=== PATIENT | male | born 1985 | race Caucasian/White ===

== ENCOUNTER 2020-07-02 17:23 | Emergency (ER) | payer OTHER, SELFPAY ==
[2020-07-02 17:33] VITALS: BP 129/86; PULSE 95; RESP 15; TEMP 37.1; O2SAT 98; BMI 31.5
[2020-07-02 17:41] VITALS: BP 129/86; PULSE 100; RESP 16; TEMP 35.6; O2SAT 100
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
--- NOTE | 2020-07-02 19:57 | PC.NURSE ---
patient moved to [facility] and this nurse took over patient care, provider inserted peggy.
--- NOTE | 2020-07-02 20:06 | PC.NURSE ---
patient medicated per order
[2020-07-02 21:18] VITALS: BP 126/84; PULSE 71; RESP 16; TEMP 36.2; O2SAT 97
== END 2020-07-02 21:56 | disposition home or self-care (01) ==
PROVIDERS: Emergency Provider Internal Medicine; PCP Physician Assistant
DX: S01.01XA Laceration without foreign body of scalp, initial encounter (principal); S06.0X0A Concussion without loss of consciousness, initial encounter; S00.81XA Abrasion of other part of head, initial encounter; Y04.2XXA Assault by strike against or bumped into by another person, initial encounter; G89.11 Acute pain due to trauma; M79.642 Pain in left hand; M54.2 Cervicalgia; F17.200 Nicotine dependence, unspecified, uncomplicated; Y93.9 Activity, unspecified; Y92.9 Unspecified place or not applicable; Y99.9 Unspecified external cause status
CPT/HCPCS: 12002; 70450; 71046; 72125; 73130; 90471; 90715; 99284

== ENCOUNTER 2022-11-28 13:38 | Inpatient (IN) | payer OTHER, SELFPAY ==
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
--- OUTSIDE RECORDS SUMMARY | 2022-11-28 13:48 | XMS_ITS | Continuity of Care Document ---
Author Name Unknown Organization [facility] ter Address [address] [place] [id number]- Care Team Providers Care Field Cane Scale Clerk Name Role Phone Lottie Hernandez Primary Care Physician [facility] [facility] [place]s): 06/22/19 - 06/22/[address] [address]- [facility] Encounter Diagnosis Epigastric pain(Final) - 06/22/19 Discharge Disposition: A-D/C Home Attending Physician: Manpreet Woods MD Admitting Physician: Manpreet Woods MD Referring Physician: Not on Staff, Referring MD Allergies, Adverse Reactions, Alerts Substance Reaction Severity Status NKA Active Medications famotidine 20 mg oral tablet 20 mg, 1, tablet, By Mouth, Daily at bedtime, # 30 tablet, Refills 0, Tot. Refills 0, Maintenance, 06/22/19 5:00:00 EST, Route to Pharmacy Electronically, [id number] Start Date: 06/22/19 Status: Ordered Results Radiology Reports * Exam Date Time Procedure Performing Provider Status 06/22/19 4:24 AM Chest 2 Views Frontal and Lat Gris Arreola; Yves (Verified) Notes: (Chest 2 Views Frontal and Lat) Reason For Exam: Shortness of Breath RESULT: Chest 2 Views Frontal and Lat Chest 2 Views Frontal and Lat Refer to EMR; Reason: Shortness of Breath; Clinical Question(s): CHF; Hx of Present Illness: Complains of substernal chest pain radiating down left arm x3 hours. COMPARISON: 11/09/2017. FINDINGS: LINES AND TUBES: None. LUNGS AND PLEURA: Clear lungs. Normal pulmonary vascularity. Mild hypoinflation. No evidence of pleural effusion, but the right posterior costophrenic angle is incompletely imaged on the lateral view. No pneumothorax. HEART, MEDIASTINUM AND HENOK: Heart is normal in size. Normal mediastinal and hilar contour. BONES AND SOFT TISSUES: No acute abnormality. IMPRESSION: Negative. Mild right posterior costophrenic angle limitation. WSN: [id number] Dictated By: Michael Sterling MD Dictated Date/Time: 06/22/19 9:45 am Reviewed By: Michael Sterling MD Signed By: Michael Sterling MD Signed Date/Time: 06/22/19 9:45 am Transcribed By: SAMIR Transcribed Date/Time: 06/22/19 9:43 am Vital Signs Most recent to oldest [Reference Range]: 1 2 3 Oxygen Saturation [94-100 %] 100 % (06/22/19 5:11 AM) 96 % (06/22/19 4:39 AM) 97 % (06/22/19 3:36 AM) Pulse Rate [55-90 bpm] 81 bpm (06/22/19 5:11 AM) 101 bpm *H* (06/22/19 4:39 AM) 99 bpm *H* (06/22/19 3:36 AM) Blood Pressure [90-138/55-84 mm Hg] 121/83mm Hg (06/22/19 5:11 AM) 125/69mm Hg (06/22/19 4:39 AM) 117/75mm Hg (06/22/19 3:36 AM) Respiratory Rate [16-30 br/min] 16 br/min (06/22/19 5:11 AM) 16 br/min (06/22/19 5:10 AM) 16 br/min (06/22/19 4:39 AM) Temperature [96.8-100.4 DegF] 98.5 DegF (06/22/19 4:39 AM) 98.2 DegF (06/22/19 3:36 AM) Mode of Delivery (Oxygen) Room air (06/22/19 5:11 AM) Room air (06/22/19 4:39 AM) Room air (06/22/19 3:36 AM) Blood pressure sites Arm, right (06/22/19 4:39 AM) Temperature Route Oral (06/22/19 4:39 AM) Oral (06/22/19 3:36 AM)
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
[2022-11-28] MEDS: Nicotine Polacrilex 2 MG GUM 4 MG BUCCAL ×2 (14:47→20:33)
[2022-11-28] MEDS: Nicotine 21 MG PATCH.TD24 TRANSDERMA (14:47)
--- NOTE | 2022-11-28 15:33 | PC.ADMIT ---
Pt signed a CV. Pt was agreeable and cooperative during admission. Pt was labile and preoccupied with current living situation stating I am currently living in a tent in [facility], all of my stuff is dirty and I have only had to survive. He signed all legals and was pleasant. He reported passive SI, stating I just don't want to live anymore, but was verbalized being able to come to staff. He denied current HI/AVH.
[2022-11-28 16:38] VITALS: BMI 26.2
--- NOTE | 2022-11-28 17:15 | PC.ADMIT ---
Patient signed 3 day notice 11/28/22Sat. up Saturday, December 03, 2022. Carli Marcelino notified.
[2022-11-28] MEDS: hydrOXYzine HCL 25 MG TABLET PO (17:28)
[2022-11-28 20:25] VITALS: BP 129/72; PULSE 95; TEMP 36.6; O2SAT 97
[2022-11-28] MEDS: traZODone HCL 50 MG TABLET PO (20:33)
[2022-11-29 07:00] VITALS: BMI 26.4
[2022-11-29 08:00] VITALS: BP 125/75; PULSE 81; RESP 16; TEMP 36.3; O2SAT 100
[2022-11-29] MEDS: Nicotine 21 MG PATCH.TD24 TRANSDERMA (08:56)
[2022-11-29] MEDS: hydrOXYzine HCL 25 MG TABLET PO ×2 (08:57→16:23)
[2022-11-29] MEDS: Acetaminophen 325 MG TABLET 650 MG PO (08:57)
[2022-11-29] MEDS: Nicotine Polacrilex 2 MG GUM 4 MG BUCCAL ×2 (09:00→17:05)
[2022-11-29 09:36] LABS: Estimated Average Glucose 103 mg/dL; Hemoglobin A1c % 5.2 %
[2022-11-29 09:41] LABS: Cholesterol 216 mg/dL; HDL Cholesterol 40 mg/dL; LDL Cholesterol Calculated 160 mg/dl; Triglycerides 80 mg/dL
[2022-11-29 09:56] LABS: Free T4 (Free Thyroxine) 1.03 ng/dL (0.71-1.85); Thyroid Stimulating Hormone 2.03 uIU/mL (0.32-4.0)
[2022-11-29 10:09] LABS: Vitamin B12 467 pg/mL (200-900)
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
[2022-11-29] MEDS: cloNIDine HCL 0.1 MG TABLET PO ×3 (12:06→19:12)
[2022-11-29 12:11] VITALS: BP 132/80
[2022-11-29] MEDS: Venlafaxine HCl ER 75 MG CAP.ER.24H PO (13:00)
[2022-11-29] MEDS: OLANZapine 2.5 MG TABLET PO ×2 (13:03→19:11)
[2022-11-29 16:31] VITALS: BP 120/67; PULSE 87; RESP 18; TEMP 36.5; O2SAT 99
[2022-11-29 19:10] VITALS: BP 112/71; PULSE 99; TEMP 35.6
[2022-11-29] MEDS: traZODone HCL 50 MG TABLET PO (19:12)
[2022-11-30 08:00] VITALS: BP 118/78; PULSE 81; RESP 18; TEMP 36.5; O2SAT 98
[2022-11-30] MEDS: OLANZapine 2.5 MG TABLET PO (08:24)
[2022-11-30] MEDS: Nicotine 21 MG PATCH.TD24 TRANSDERMA (08:24)
[2022-11-30] MEDS: cloNIDine HCL 0.1 MG TABLET PO ×3 (08:25→20:04)
[2022-11-30] MEDS: Venlafaxine HCl ER 75 MG CAP.ER.24H PO (08:25)
[2022-11-30] MEDS: Nicotine Polacrilex 2 MG GUM 4 MG BUCCAL ×3 (08:51→20:56)
[2022-11-30] MEDS: hydrOXYzine HCL 25 MG TABLET PO ×2 (08:51→20:05)
--- NOTE | 2022-11-30 10:17 | HO.PSYCHPN ---
Subjective Subjective Date of Service: 11/30/22 Reason For Visit: Post Traumatic Stress Disorder Interim History: Met with patient; discussed with team Patient remains extremely anxious; agrees titrate Effexor; also agreed to start Trileptal which can be titrated. Asks if clonidine which he found helpful can be increased to 0.2 mg; reviewed risks and blood pressure which looked to be able to tolerate increased dose. Did not like Zyprexa and felt it made him sleepy and then more agitated. Mental Status Exam Mental Status Exam Narrative: Pt is alert and oriented; behavior is cooperative, anxious; dressed in hospital attire with, scruffy facial hair, marginal hygiene; mood is described as anxious and affect congruent, fearful; eye contact appropriate; Speech is normal rate, volume and prosody and not pressured; some psychomotor retardation present; thought process is goal directed; Thought content is on preoccupied with talking about anxiety symptoms; otherwise pertinent to relevant topics and without any delusional content, paranoid ideations or grandiosity; intermittent passive wish; no HI. There is no evidence of perceptual disturbance. Patients insight and judgment impaired Diagnostics Vital Signs (24Hr): Vital Signs - 24 hr 11/29/22 12:11 11/29/22 16:31 11/29/22 19:10 Temperature 97.7 F 96.1 F L Pulse Rate 87 99 Respiratory Rate 18 Blood Pressure 132/80 120/67 112/71 Pulse Oximetry 99 Oxygen Delivery Method Room Air 11/30/22 08:00 Temperature 97.7 F Pulse Rate 81 Respiratory Rate 18 Blood Pressure 118/78 Pulse Oximetry 98 Oxygen Delivery Method Room Air BMI result Body Mass Index 26.4 Labs Labs: Laboratory Results - last 48 hr 11/29/22 11/29/22 11/29/22 08:54 08:54 08:54 Estimat Average Glucose 103 Hemoglobin A1c % 5.2 Magnesium 2.0 Triglycerides 80 Cholesterol 216 LDL Cholesterol, Calc 160 HDL Cholesterol 40 Vitamin B12 467 Folate 10.0 TSH 2.03 Free T4 1.03 Medications Medications Current Medications Acetaminophen (Acetaminophen 325 Mg Tablet) 650 mg PO Q6H PRN PRN Reason: Headache/Pain Mild Scale (1-3) Last Admin: 11/29/22 08:57 Dose: 650 mg Al Hydroxide/Mg Hydroxide (Magnesium Hydrox/Alum Hydrox 30 Ml Oral.Susp) 30 ml PO Q6H PRN PRN Reason: Heartburn/Nausea Clonidine HCl (Clonidine Hcl 0.1 Mg Tablet) 0.1 mg PO BEDTIME JAE; Protocol Last Admin: 11/29/22 19:12 Dose: 0.1 mg Clonidine HCl (Clonidine Hcl 0.1 Mg Tablet) 0.1 mg PO Q4H PRN; Protocol PRN Reason: anxiety Last Admin: 11/30/22 08:25 Dose: 0.1 mg Hydroxyzine HCl (Hydroxyzine Hcl 25 Mg Tablet) 25 mg PO Q6H PRN PRN Reason: Anxiety Last Admin: 11/30/22 08:51 Dose: 25 mg Magnesium Hydroxide (Milk Of Magnesia 30 Ml Oral.Susp) 30 ml PO DAILY PRN PRN Reason: Constipation Nicotine (Nicotine 21 Mg Patch.Td24) 21 mg TRANSDERMA DAILY PRN PRN Reason: smoking cessation Last Admin: 11/30/22 08:24 Dose: 21 mg Nicotine Polacrilex (Nicotine Polacrilex 2 Mg Gum) 4 mg BUCCAL Q2H PRN PRN Reason: nicotine cravings Last Admin: 11/30/22 08:51 Dose: 4 mg Olanzapine (Olanzapine 2.5 Mg Tablet) 2.5 mg PO Q6H PRN PRN Reason: anxiety/agitation Last Admin: 11/30/22 08:24 Dose: 2.5 mg Trazodone HCl (Trazodone Hcl 50 Mg Tablet) 50 mg PO BEDTIME MRX1 PRN PRN Reason: Insomnia Last Admin: 11/29/22 19:12 Dose: 50 mg Venlafaxine HCl (Venlafaxine Hcl Er 75 Mg Cap.Er.24h) 75 mg PO DAILY JAE Last Admin: 11/30/22 08:25 Dose: 75 mg Allergies Allergies Allergy/AdvReac Type Severity Reaction Status Date / Time amoxicillin Allergy Severe Rash Verified 11/28/22 13:16 cephalexin [From Keflex] Allergy Severe Rash Verified 11/28/22 13:16 Assessment & Plan Assessment & Plan (1) SAWYER (generalized anxiety disorder): Status: Acute Code(s): F41.1 - Generalized anxiety disorder (2) OCD (obsessive compulsive disorder): Status: Suspected Code(s): F42.9 - Obsessive-compulsive disorder, unspecified (3) PTSD (post-traumatic stress disorder): Status: Acute Code(s): F43.10 - Post-traumatic stress disorder, unspecified (4) MDD (major depressive disorder), recurrent severe, without psychosis: Status: Acute Code(s): F33.2 - Major depressive disorder, recurrent severe without psychotic features Plan Patient is a 37-year-old male with history of MDD, PTSD and severe anxiety who presents for worsening anxiety. Patient lives [place] [facility] and has for 3 years. He reports that his anxiety has been worsening over the past few months but especially so the past few weeks. He is not sure why but says that he feels terrified of many different things, a small sound will send him into a panic where he gets sweaty, starts to hyperventilate, the muscles tense, and he starts to feel confused. Patient reports other associated neurological complaints such as being dizzy or having trouble walking but all in the context of panic/anxiety. Patient is clearly very anxious during interview and [place] about very little else. Patient says his anxiety is all the time and that recently he does lied in his tent for 3 days in a row hardly moving, just looking at the ceiling. Patient denies any history of manic episodes; denies AVH; denies alcohol or drug use; patient has passive SI, wishing he were but no intent or plans and no history of attempts. Patient recently at [facility] respite and was started on venlafaxine which he has taken daily and agrees to increase now. Impression: Patient has severe anxiety; will need to explore further and determine if patient has OCD. History of trauma and PTSD symptoms contributory. No obvious psychotic symptoms Plan: CV Q 15 minute checks Increased venlafaxine ER to 75 mg; will likely continue titrating if tolerated INCREASE so clonidine 0.2 mg q.4h p.r.n. for anxiety (bp stable) and 0.1 mg scheduled q.h.s. for trouble sleeping Start and titrate Trileptal for anxiety 300mgBID DC Zyprexa patient feels combination of sedating into agitating Patient educated on: diagnosis and medication risk/benefits Informed Consent: understands Reason for continued inpatient stay Substantial Risk for: inability to function and rapid decompensation Time Spent With Patient Time: Total time managing care of this patient today ____ minutes.
[2022-11-30] MEDS: OXcarbazepine 150 MG TABLET PO (13:46)
[2022-11-30] MEDS: cloNIDine HCL 0.2 MG TABLET PO (17:01)
[2022-11-30 17:05] VITALS: BP 112/70; PULSE 98; RESP 18; TEMP 36.2; O2SAT 98
[2022-11-30] MEDS: Acetaminophen 325 MG TABLET 650 MG PO (20:01)
[2022-11-30] MEDS: traZODone HCL 50 MG TABLET PO (20:05)
[2022-11-30] MEDS: OXcarbazepine 300 MG TABLET PO (20:06)
[2022-12-01 08:40] VITALS: BP 137/81; PULSE 73; RESP 16; TEMP 36.4; O2SAT 99
[2022-12-01] MEDS: OXcarbazepine 300 MG TABLET PO ×2 (08:41→20:38)
[2022-12-01] MEDS: Nicotine 21 MG PATCH.TD24 TRANSDERMA (08:41)
[2022-12-01] MEDS: cloNIDine HCL 0.2 MG TABLET PO ×3 (08:41→17:18)
[2022-12-01] MEDS: Venlafaxine HCl ER 75 MG CAP.ER.24H PO (08:41)
[2022-12-01] MEDS: hydrOXYzine HCL 25 MG TABLET PO ×3 (08:41→20:38)
[2022-12-01] MEDS: Nicotine Polacrilex 2 MG GUM 4 MG BUCCAL ×5 (08:48→20:38)
[2022-12-01 12:39] VITALS: BP 119/56; PULSE 104
[2022-12-01] MEDS: Acetaminophen 325 MG TABLET 650 MG PO ×2 (13:49→20:38)
[2022-12-01 18:00] VITALS: BP 123/70; PULSE 84; RESP 20; TEMP 36.7; O2SAT 98
--- NOTE | 2022-12-01 18:27 | HO.PSYCHPN ---
Subjective Subjective Date of Service: 12/01/22 Reason For Visit: Post Traumatic Stress Disorder Interim History: Pt seen and discussed in team. Pt attending groups. States he attended medicine group and is ready to make changes. Will discuss with primary provider. Considering Cymbalta and Gabapentin. Discussed worry about his future. Team reports some somatic focus. Review of Systems Medical Review of Systems: unchanged Mental Status Exam Mental Status Exam Patient Appearance: Appropriate Patient Orientation: Person, Place, Time and Situation Level of Consciousness: Alert Patient Behavior: Appropriate and Talkative Mood Description: Anxious and Apprehensive Affect Description: Anxious and Apprehensive Patient Cognition Impaired: No Ability to Follow Directions: Good Speech Pattern: Spontaneous Speech Memory Description: Intact Delusions: Present (much worry) Thought Process: Rumination Thought Content: positive for Perseveration Depressive Symptoms: Increased Anxiety Judgement: Fair Diagnostics Vital Signs (24Hr): Vital Signs - 24 hr 12/01/22 08:40 12/01/22 12:39 Temperature 97.6 F Pulse Rate 73 104 H Respiratory Rate 16 Blood Pressure 137/81 119/56 L Pulse Oximetry 99 BMI result Body Mass Index 26.4 Medications Medications Current Medications Acetaminophen (Acetaminophen 325 Mg Tablet) 650 mg PO Q6H PRN PRN Reason: Headache/Pain Mild Scale (1-3) Last Admin: 12/01/22 13:49 Dose: 650 mg Al Hydroxide/Mg Hydroxide (Magnesium Hydrox/Alum Hydrox 30 Ml Oral.Susp) 30 ml PO Q6H PRN PRN Reason: Heartburn/Nausea Clonidine HCl (Clonidine Hcl 0.1 Mg Tablet) 0.1 mg PO BEDTIME JAE; Protocol Last Admin: 11/30/22 20:04 Dose: 0.1 mg Clonidine HCl (Clonidine Hcl 0.2 Mg Tablet) 0.2 mg PO Q4H PRN; Protocol PRN Reason: anxiety Last Admin: 12/01/22 17:18 Dose: 0.2 mg Hydroxyzine HCl (Hydroxyzine Hcl 25 Mg Tablet) 25 mg PO Q6H PRN PRN Reason: Anxiety Last Admin: 12/01/22 15:21 Dose: 25 mg Magnesium Hydroxide (Milk Of Magnesia 30 Ml Oral.Susp) 30 ml PO DAILY PRN PRN Reason: Constipation Nicotine (Nicotine 21 Mg Patch.Td24) 21 mg TRANSDERMA DAILY PRN PRN Reason: smoking cessation Last Admin: 07/01/23 08:41 Dose: 21 mg Nicotine Polacrilex (Nicotine Polacrilex 2 Mg Gum) 4 mg BUCCAL Q2H PRN PRN Reason: nicotine cravings Last Admin: 12/01/22 17:18 Dose: 4 mg Oxcarbazepine (Oxcarbazepine 300 Mg Tablet) 300 mg PO BID JAE Last Admin: 12/01/22 08:41 Dose: 300 mg Trazodone HCl (Trazodone Hcl 50 Mg Tablet) 50 mg PO BEDTIME MRX1 PRN PRN Reason: Insomnia Last Admin: 11/30/22 20:05 Dose: 50 mg Venlafaxine HCl (Venlafaxine Hcl Er 75 Mg Cap.Er.24h) 75 mg PO DAILY JAE Last Admin: 12/01/22 08:41 Dose: 75 mg Allergies Allergies Allergy/AdvReac Type Severity Reaction Status Date / Time amoxicillin Allergy Severe Rash Verified 11/28/22 13:16 cephalexin [From Keflex] Allergy Severe Rash Verified 11/28/22 13:16 Assessment & Plan Assessment & Plan (1) SAWYER (generalized anxiety disorder): Status: Acute Code(s): F41.1 - Generalized anxiety disorder (2) OCD (obsessive compulsive disorder): Status: Suspected Code(s): F42.9 - Obsessive-compulsive disorder, unspecified (3) PTSD (post-traumatic stress disorder): Status: Acute Code(s): F43.10 - Post-traumatic stress disorder, unspecified (4) MDD (major depressive disorder), recurrent severe, without psychosis: Status: Acute Code(s): F33.2 - Major depressive disorder, recurrent severe without psychotic features Plan Patient is a 37-year-old male with history of MDD, PTSD and severe anxiety who presents for worsening anxiety. Patient lives in a tent in the [facility] and has for 3 years. He reports that his anxiety has been worsening over the past few months but especially so the past few weeks. He is not sure why but says that he feels terrified of many different things, a small sound will send him into a panic where he gets sweaty, starts to hyperventilate, the muscles tense, and he starts to feel confused. Patient reports other associated neurological complaints such as being dizzy or having trouble walking but all in the context of panic/anxiety. Patient is clearly very anxious during interview and [place] about very little else. Patient says his anxiety is all the time and that recently he does lied in his tent for 3 days in a row hardly moving, just looking at the ceiling. Patient denies any history of manic episodes; denies AVH; denies alcohol or drug use; patient has passive SI, wishing he were but no intent or plans and no history of attempts. Patient recently at [facility] respite and was started on venlafaxine which he has taken daily and agrees to increase now. Impression: Patient has severe anxiety; will need to explore further and determine if patient has OCD. History of trauma and PTSD symptoms contributory. No obvious psychotic symptoms Plan: CV Q 15 minute checks Increase venlafaxine ER to 75 mg; will likely continue titrating if tolerated Started clonidine 0.1 mg q.4h p.r.n. for anxiety and 0.1 mg scheduled q.h.s. for trouble sleeping Added Zyprexa 2.5 mg as a p.r.n. as well HOSPITAL COURSE 12/01/22- Continue current regime and plan of care Informed Consent: understands Reason for continued inpatient stay Substantial Risk for: rapid decompensation Time Spent With Patient Time: Total time managing care of this patient today ____ minutes.
[2022-12-01] MEDS: cloNIDine HCL 0.1 MG TABLET PO (20:37)
[2022-12-01] MEDS: traZODone HCL 50 MG TABLET PO (20:37)
[2022-12-02] MEDS: OXcarbazepine 300 MG TABLET PO ×2 (08:59→20:25)
[2022-12-02] MEDS: Venlafaxine HCl ER 75 MG CAP.ER.24H PO (08:59)
--- NOTE | 2022-12-02 08:59 | HO.PSYCHPN ---
Subjective Subjective Date of Service: 12/02/22 Reason For Visit: Post Traumatic Stress Disorder Interim History: Pt seen and discussed with team. Continues with worry, anxiety. Encouraged to allow regime to take effect. Visable in milieu, appropriate behavior in the milieu. Medication Compliance: Yes Side effects from medications: No Attending Groups: Intermittent Review of Systems Acute medical concerns: No Medical Review of Systems: unchanged Mental Status Exam Mental Status Exam Patient Appearance: Appropriate Patient Orientation: Person, Place, Time and Situation Level of Consciousness: Alert Patient Behavior: Appropriate and Talkative Mood Description: Anxious and Apprehensive Affect Description: Anxious and Apprehensive Patient Cognition Impaired: No Ability to Follow Directions: Good Speech Pattern: Spontaneous Speech Memory Description: Intact Delusions: Present (much worry) Thought Process: Rumination Thought Content: positive for Perseveration Depressive Symptoms: Increased Anxiety Judgement: Fair Diagnostics Vital Signs (24Hr): Vital Signs - 24 hr 12/01/22 12:39 12/01/22 18:00 Temperature 98.1 F Pulse Rate 104 H 84 Respiratory Rate 20 Blood Pressure 119/56 L 123/70 Pulse Oximetry 98 Oxygen Delivery Method Room Air BMI result Body Mass Index 26.4 Medications Medications Current Medications Acetaminophen (Acetaminophen 325 Mg Tablet) 650 mg PO Q6H PRN PRN Reason: Headache/Pain Mild Scale (1-3) Last Admin: 12/01/22 20:38 Dose: 650 mg Al Hydroxide/Mg Hydroxide (Magnesium Hydrox/Alum Hydrox 30 Ml Oral.Susp) 30 ml PO Q6H PRN PRN Reason: Heartburn/Nausea Clonidine HCl (Clonidine Hcl 0.1 Mg Tablet) 0.1 mg PO BEDTIME JAE; Protocol Last Admin: 12/01/22 20:37 Dose: 0.1 mg Clonidine HCl (Clonidine Hcl 0.2 Mg Tablet) 0.2 mg PO Q4H PRN; Protocol PRN Reason: anxiety Last Admin: 12/01/22 17:18 Dose: 0.2 mg Hydroxyzine HCl (Hydroxyzine Hcl 25 Mg Tablet) 25 mg PO Q6H PRN PRN Reason: Anxiety Last Admin: 12/01/22 20:38 Dose: 25 mg Magnesium Hydroxide (Milk Of Magnesia 30 Ml Oral.Susp) 30 ml PO DAILY PRN PRN Reason: Constipation Nicotine (Nicotine 21 Mg Patch.Td24) 21 mg TRANSDERMA DAILY PRN PRN Reason: smoking cessation Last Admin: 12/01/22 08:41 Dose: 21 mg Nicotine Polacrilex (Nicotine Polacrilex 2 Mg Gum) 4 mg BUCCAL Q2H PRN PRN Reason: nicotine cravings Last Admin: 12/01/22 20:38 Dose: 4 mg Oxcarbazepine (Oxcarbazepine 300 Mg Tablet) 300 mg PO BID JAE Last Admin: 12/01/22 20:38 Dose: 300 mg Trazodone HCl (Trazodone Hcl 50 Mg Tablet) 50 mg PO BEDTIME MRX1 PRN PRN Reason: Insomnia Last Admin: 12/01/22 20:37 Dose: 50 mg Venlafaxine HCl (Venlafaxine Hcl Er 75 Mg Cap.Er.24h) 75 mg PO DAILY [facility] Last Admin: 12/01/22 08:41 Dose: 75 mg Allergies Allergies Allergy/AdvReac Type Severity Reaction Status Date / Time amoxicillin Allergy Severe Rash Verified 11/28/22 13:16 cephalexin [From Keflex] Allergy Severe Rash Verified 11/28/22 13:16 Assessment & Plan Assessment & Plan (1) SAWYER (generalized anxiety disorder): Status: Acute Code(s): F41.1 - Generalized anxiety disorder (2) OCD (obsessive compulsive disorder): Status: Suspected Code(s): F42.9 - Obsessive-compulsive disorder, unspecified (3) PTSD (post-traumatic stress disorder): Status: Acute Code(s): F43.10 - Post-traumatic stress disorder, unspecified (4) MDD (major depressive disorder), recurrent severe, without psychosis: Status: Acute Code(s): F33.2 - Major depressive disorder, recurrent severe without psychotic features Plan Patient is a 37-year-old male with history of MDD, PTSD and severe anxiety who presents for worsening anxiety. Patient lives in a tent in the [facility] and has for 3 years. He reports that his anxiety has been worsening over the past few months but especially so the past few weeks. He is not sure why but says that he feels terrified of many different things, a small sound will send him into a panic where he gets sweaty, starts to hyperventilate, the muscles tense, and he starts to feel confused. Patient reports other associated neurological complaints such as being dizzy or having trouble walking but all in the context of panic/anxiety. Patient is clearly very anxious during interview and [place] about very little else. Patient says his anxiety is all the time and that recently he does lied in his tent for 3 days in a row hardly moving, just looking at the ceiling. Patient denies any history of manic episodes; denies AVH; denies alcohol or drug use; patient has passive SI, wishing he were but no intent or plans and no history of attempts. Patient recently at [facility] respite and was started on venlafaxine which he has taken daily and agrees to increase now. Impression: Patient has severe anxiety; will need to explore further and determine if patient has OCD. History of trauma and PTSD symptoms contributory. No obvious psychotic symptoms Plan: CV Q 15 minute checks Increase venlafaxine ER to 75 mg; will likely continue titrating if tolerated Started clonidine 0.1 mg q.4h p.r.n. for anxiety and 0.1 mg scheduled q.h.s. for trouble sleeping Added Zyprexa 2.5 mg as a p.r.n. as well HOSPITAL COURSE 12/02/22 Continue current regime and plan of care Informed Consent: understands Reason for continued inpatient stay Substantial Risk for: rapid decompensation and med/psych decompensation Time Spent With Patient Time: Total time managing care of this patient today ____ minutes.
[2022-12-02 09:00] VITALS: BP 117/76; PULSE 80; RESP 16; TEMP 36.6; O2SAT 99
[2022-12-02] MEDS: Nicotine 21 MG PATCH.TD24 TRANSDERMA (09:02)
[2022-12-02] MEDS: cloNIDine HCL 0.2 MG TABLET PO ×3 (09:03→18:00)
[2022-12-02] MEDS: Acetaminophen 325 MG TABLET 650 MG PO ×2 (09:03→20:28)
[2022-12-02] MEDS: Nicotine Polacrilex 2 MG GUM 4 MG BUCCAL ×4 (09:03→20:28)
[2022-12-02] MEDS: hydrOXYzine HCL 25 MG TABLET PO ×3 (09:03→20:29)
[2022-12-02 18:00] VITALS: BP 97/54; PULSE 94; TEMP 36.6; O2SAT 97
[2022-12-02] MEDS: cloNIDine HCL 0.1 MG TABLET PO (20:25)
--- NOTE | 2022-12-03 09:14 | HO.PSYCHPN ---
Subjective Subjective Date of Service: 12/03/22 Reason For Visit: Post Traumatic Stress Disorder Interim History: Met with patient; discussed with team very anxious; somatically preoccupied Patient feels that there is the irritable, agitated edge to his anxiety. Ask her gabapentin p.r.n.; discussed Tegretol is that of Trileptal Headache is mostly all resolved Head CT unremarkable Mental Status Exam Mental Status Exam Narrative: Pt is alert and oriented; behavior is cooperative, anxious; dressed in hospital attire with, scruffy facial hair, marginal hygiene; mood is described as anxious and affect congruent, fearful; eye contact appropriate; Speech is normal rate, volume and prosody and not pressured; some psychomotor retardation present; thought process is goal directed; Thought content is on preoccupied with talking about anxiety symptoms; otherwise pertinent to relevant topics and without any delusional content, paranoid ideations or grandiosity; intermittent passive wish; no HI. There is no evidence of perceptual disturbance. Patients insight and judgment impaired Diagnostics Vital Signs (24Hr): Vital Signs - 24 hr 12/02/22 18:00 Temperature 97.8 F Pulse Rate 94 Blood Pressure 97/54 L Pulse Oximetry 97 Oxygen Delivery Method Room Air BMI result Body Mass Index 26.4 Medications Medications Current Medications Acetaminophen (Acetaminophen 325 Mg Tablet) 650 mg PO Q6H PRN PRN Reason: Headache/Pain Mild Scale (1-3) Last Admin: 12/02/22 20:28 Dose: 650 mg Al Hydroxide/Mg Hydroxide (Magnesium Hydrox/Alum Hydrox 30 Ml Oral.Susp) 30 ml PO Q6H PRN PRN Reason: Heartburn/Nausea Clonidine HCl (Clonidine Hcl 0.1 Mg Tablet) 0.1 mg PO BEDTIME JAE; Protocol Last Admin: 12/02/22 20:25 Dose: 0.1 mg Clonidine HCl (Clonidine Hcl 0.2 Mg Tablet) 0.2 mg PO Q4H PRN; Protocol PRN Reason: anxiety Last Admin: 12/02/22 18:00 Dose: 0.2 mg Hydroxyzine HCl (Hydroxyzine Hcl 25 Mg Tablet) 25 mg PO Q6H PRN PRN Reason: Anxiety Last Admin: 12/02/22 20:29 Dose: 25 mg Magnesium Hydroxide (Milk Of Magnesia 30 Ml Oral.Susp) 30 ml PO DAILY PRN PRN Reason: Constipation Nicotine (Nicotine 21 Mg Patch.Td24) 21 mg TRANSDERMA DAILY PRN PRN Reason: smoking cessation Last Admin: 12/02/22 09:02 Dose: 21 mg Nicotine Polacrilex (Nicotine Polacrilex 2 Mg Gum) 4 mg BUCCAL Q2H PRN PRN Reason: nicotine cravings Last Admin: 12/02/22 20:28 Dose: 4 mg Oxcarbazepine (Oxcarbazepine 300 Mg Tablet) 300 mg PO BID JAE Last Admin: 12/02/22 20:25 Dose: 300 mg Trazodone HCl (Trazodone Hcl 50 Mg Tablet) 50 mg PO BEDTIME MRX1 PRN PRN Reason: Insomnia Last Admin: 12/01/22 20:37 Dose: 50 mg Venlafaxine HCl (Venlafaxine Hcl Er 75 Mg Cap.Er.24h) 75 mg PO DAILY [facility] Last Admin: 12/02/22 08:59 Dose: 75 mg Allergies Allergies Allergy/AdvReac Type Severity Reaction Status Date / Time amoxicillin Allergy Severe Rash Verified 11/28/22 13:16 cephalexin [From Keflex] Allergy Severe Rash Verified 11/28/22 13:16 Assessment & Plan Assessment & Plan (1) SAWYER (generalized anxiety disorder): Status: Acute Code(s): F41.1 - Generalized anxiety disorder (2) OCD (obsessive compulsive disorder): Status: Suspected Code(s): F42.9 - Obsessive-compulsive disorder, unspecified (3) PTSD (post-traumatic stress disorder): Status: Acute Code(s): F43.10 - Post-traumatic stress disorder, unspecified (4) MDD (major depressive disorder), recurrent severe, without psychosis: Status: Acute Code(s): F33.2 - Major depressive disorder, recurrent severe without psychotic features Plan Patient is a 37-year-old male with history of MDD, PTSD and severe anxiety who presents for worsening anxiety. Patient lives in a tent in the [facility] and has for 3 years. He reports that his anxiety has been worsening over the past few months but especially so the past few weeks. He is not sure why but says that he feels terrified of many different things, a small sound will send him into a panic where he gets sweaty, starts to hyperventilate, the muscles tense, and he starts to feel confused. Patient reports other associated neurological complaints such as being dizzy or having trouble walking but all in the context of panic/anxiety. Patient is clearly very anxious during interview and [place] about very little else. Patient says his anxiety is all the time and that recently he does lied in his tent for 3 days in a row hardly moving, just looking at the ceiling. Patient denies any history of manic episodes; denies AVH; denies alcohol or drug use; patient has passive SI, wishing he were but no intent or plans and no history of attempts. Patient recently at [facility] respite and was started on venlafaxine which he has taken daily and agrees to increase now. Impression: Patient has severe anxiety; will need to explore further and determine if patient has OCD. History of trauma and PTSD symptoms contributory. No obvious psychotic symptoms Hospital course: 12/03 remains very anxious and somatically pre-occupied. c/o irritable edge and asks for Tegretol. Remote possibility that pt could have some mixed manic symptoms but since does not want Trileptal will start Tegretol (which he asks for by name; says Trileptal may have made anxiety worse-though this is thought is quite possibly just product of anxiety). Gabapentin prn for anxiety. Headache is mostly all resolved Head CT unremarkable Plan: CV Q 15 minute checks START Tegretol XR 200 mg b.i.d.; since patient reports agitated, irritable edge to his anxiety will replace Trileptal Continue venlafaxine ER at 75 mg for now Add gabapentin 300 mg t.i.d. p.r.n. for anxiety Continue clonidine 0.2 mg q.4h p.r.n. for anxiety (bp stable) and 0.1 mg scheduled q.h.s. for trouble sleeping DC Zyprexa patient feels combination of sedating into agitating DC Trileptal Patient educated on: diagnosis and medication risk/benefits Informed Consent: understands Reason for continued inpatient stay Substantial Risk for: inability to function Time Spent With Patient Time: Total time managing care of this patient today ____ minutes.
[2022-12-03] MEDS: Acetaminophen 325 MG TABLET 650 MG PO ×2 (09:28→18:16)
[2022-12-03] MEDS: Venlafaxine HCl ER 75 MG CAP.ER.24H PO (09:28)
[2022-12-03] MEDS: Nicotine Polacrilex 2 MG GUM 4 MG BUCCAL ×4 (09:28→22:31)
[2022-12-03] MEDS: OXcarbazepine 300 MG TABLET PO (09:29)
[2022-12-03] MEDS: hydrOXYzine HCL 25 MG TABLET PO ×3 (09:29→22:26)
[2022-12-03] MEDS: Nicotine 21 MG PATCH.TD24 TRANSDERMA (09:29)
[2022-12-03] MEDS: cloNIDine HCL 0.2 MG TABLET PO ×3 (09:29→18:13)
[2022-12-03 09:30] VITALS: BP 127/76; PULSE 101; RESP 16; TEMP 37.1; O2SAT 99
[2022-12-03 18:00] VITALS: BP 113/63; PULSE 91; RESP 18; TEMP 36.6; O2SAT 99
--- NOTE | 2022-12-03 19:57 | PC.NURSE ---
pt was given carbamazepine 100mg at 1945 due to the pharmacy not bringing up the med after repeated phone calls. pharmacist said that bedtime dose can be given at 10pm safely.
[2022-12-03] MEDS: traZODone HCL 50 MG TABLET PO (22:26)
[2022-12-03] MEDS: cloNIDine HCL 0.1 MG TABLET PO (22:26)
[2022-12-03] MEDS: carBAMazepine ER 200 MG TAB.ER.12H PO (22:26)
[2022-12-04] MEDS: carBAMazepine ER 200 MG TAB.ER.12H PO ×2 (08:51→22:12)
[2022-12-04] MEDS: Venlafaxine HCl ER 75 MG CAP.ER.24H PO (08:51)
[2022-12-04] MEDS: cloNIDine HCL 0.2 MG TABLET PO ×2 (09:05→13:06)
[2022-12-04] MEDS: hydrOXYzine HCL 25 MG TABLET PO ×3 (09:05→19:02)
[2022-12-04] MEDS: Nicotine 21 MG PATCH.TD24 TRANSDERMA (09:05)
[2022-12-04] MEDS: Acetaminophen 325 MG TABLET 650 MG PO (09:10)
[2022-12-04] MEDS: Nicotine Polacrilex 2 MG GUM 4 MG BUCCAL ×5 (09:11→22:16)
[2022-12-04 09:20] VITALS: BP 133/60; PULSE 84; RESP 16; TEMP 36.1; O2SAT 100
--- NOTE | 2022-12-04 11:49 | HO.PSYCHPN ---
Subjective Subjective Date of Service: 12/04/22 Reason For Visit: Post Traumatic Stress Disorder Interim History: Met with patient; discussed with team Multiple somatic complaints. Anxiety. Pain in ankle and bottom of the feet. Restlessness in legs and feet. Shortness of breath without any distress noted, feeling on edge, headaches. He took GBP and found it helpful as needed. Agrees to schedule. Denies SI/HI Denies AVH. Review of Systems Review of Systems Multiple chronic musculoskeletal neurological complaints See above in the HPI Mental Status Exam Mental Status Exam Narrative: Pt is alert and oriented; behavior is cooperative, anxious; dressed in hospital attire with, scruffy facial hair, marginal hygiene; mood is described as anxious and affect congruent, fearful; eye contact appropriate; Speech is normal rate, volume and prosody and not pressured; some psychomotor retardation present; thought process is goal directed; Thought content is on preoccupied with talking about anxiety symptoms; otherwise pertinent to relevant topics and without any delusional content, paranoid ideations or grandiosity; intermittent passive wish; no HI. There is no evidence of perceptual disturbance. Patients insight and judgment impaired Patient Appearance: Appropriate Patient Orientation: Person, Place, Time and Situation Level of Consciousness: Alert Patient Behavior: Appropriate and Talkative Mood Description: Anxious and Apprehensive Affect Description: Anxious and Apprehensive Patient Cognition Impaired: No Ability to Follow Directions: Good Speech Pattern: Spontaneous Speech Memory Description: Intact Diagnostics Vital Signs (24Hr): Vital Signs - 24 hr 12/03/22 18:00 12/04/22 09:20 Temperature 97.9 F 97 F Pulse Rate 91 84 Respiratory Rate 18 16 Blood Pressure 113/63 133/60 Pulse Oximetry 99 100 Oxygen Delivery Method Room Air Room Air BMI result Body Mass Index 26.4 Imaging Radiology Impressions: ITS Impressions Head CT 12/03/22 09:09 IMPRESSION: No acute intracranial pathology. Medications Medications Current Medications Acetaminophen (Acetaminophen 325 Mg Tablet) 650 mg PO Q6H PRN PRN Reason: Headache/Pain Mild Scale (1-3) Last Admin: 12/04/22 09:10 Dose: 650 mg Al Hydroxide/Mg Hydroxide (Magnesium Hydrox/Alum Hydrox 30 Ml Oral.Susp) 30 ml PO Q6H PRN PRN Reason: Heartburn/Nausea Carbamazepine (Carbamazepine Er 200 Mg Tab.Er.12h) 200 mg PO BID JAE Last Admin: 12/04/22 08:51 Dose: 200 mg Clonidine HCl (Clonidine Hcl 0.1 Mg Tablet) 0.1 mg PO BEDTIME JAE; Protocol Last Admin: 12/03/22 22:26 Dose: 0.1 mg Clonidine HCl (Clonidine Hcl 0.2 Mg Tablet) 0.2 mg PO Q4H PRN; Protocol PRN Reason: anxiety Last Admin: 12/04/22 09:05 Dose: 0.2 mg Gabapentin (Gabapentin 300 Mg Capsule) 300 mg PO TID PRN PRN Reason: anxiety Last Admin: 12/04/22 09:05 Dose: 300 mg Hydroxyzine HCl (Hydroxyzine Hcl 25 Mg Tablet) 25 mg PO Q6H PRN PRN Reason: Anxiety Last Admin: 12/04/22 09:05 Dose: 25 mg Magnesium Hydroxide (Milk Of Magnesia 30 Ml Oral.Susp) 30 ml PO DAILY PRN PRN Reason: Constipation Nicotine (Nicotine 21 Mg Patch.Td24) 21 mg TRANSDERMA DAILY PRN PRN Reason: smoking cessation Last Admin: 12/04/22 09:05 Dose: 21 mg Nicotine Polacrilex (Nicotine Polacrilex 2 Mg Gum) 4 mg BUCCAL Q2H PRN PRN Reason: nicotine cravings Last Admin: 12/04/22 09:11 Dose: 4 mg Trazodone HCl (Trazodone Hcl 50 Mg Tablet) 50 mg PO BEDTIME MRX1 PRN PRN Reason: Insomnia Last Admin: 12/03/22 22:26 Dose: 50 mg Venlafaxine HCl (Venlafaxine Hcl Er 75 Mg Cap.Er.24h) 75 mg PO DAILY JAE Last Admin: 12/04/22 08:51 Dose: 75 mg Allergies Allergies Allergy/AdvReac Type Severity Reaction Status Date / Time amoxicillin Allergy Severe Rash Verified 11/28/22 13:16 cephalexin [From Keflex] Allergy Severe Rash Verified 11/28/22 13:16 Assessment & Plan Assessment & Plan (1) SAWYER (generalized anxiety disorder): Status: Acute Code(s): F41.1 - Generalized anxiety disorder (2) OCD (obsessive compulsive disorder): Status: Suspected Code(s): F42.9 - Obsessive-compulsive disorder, unspecified (3) PTSD (post-traumatic stress disorder): Status: Acute Code(s): F43.10 - Post-traumatic stress disorder, unspecified (4) MDD (major depressive disorder), recurrent severe, without psychosis: Status: Acute Code(s): F33.2 - Major depressive disorder, recurrent severe without psychotic features Plan Patient is a 37-year-old male with history of MDD, PTSD and severe anxiety who presents for worsening anxiety. Patient lives in a tent in the [facility] and has for 3 years. He reports that his anxiety has been worsening over the past few months but especially so the past few weeks. He is not sure why but says that he feels terrified of many different things, a small sound will send him into a panic where he gets sweaty, starts to hyperventilate, the muscles tense, and he starts to feel confused. Patient reports other associated neurological complaints such as being dizzy or having trouble walking but all in the context of panic/anxiety. Patient is clearly very anxious during interview and [place] about very little else. Patient says his anxiety is all the time and that recently he does lied in his tent for 3 days in a row hardly moving, just looking at the ceiling. Patient denies any history of manic episodes; denies AVH; denies alcohol or drug use; patient has passive SI, wishing he were but no intent or plans and no history of attempts. Patient recently at [facility] respite and was started on venlafaxine which he has taken daily and agrees to increase now. Impression: Patient has severe anxiety; will need to explore further and determine if patient has OCD. History of trauma and PTSD symptoms contributory. No obvious psychotic symptoms Plan: CV Q 15 minute checks START Tegretol XR 200 mg b.i.d.; since patient reports agitated, irritable edge to his anxiety will replace Trileptal Continue venlafaxine ER at 75 mg for now Add gabapentin 300 mg t.i.d. p.r.n. for anxiety Continue clonidine 0.2 mg q.4h p.r.n. for anxiety (bp stable) and 0.1 mg scheduled q.h.s. for trouble sleeping DC Zyprexa patient feels combination of sedating into agitating DC Trileptal 12/04: GBP scheduled 300 mg TID. Continue other treatment plan unchanged. Reason for continued inpatient stay Substantial Risk for: inability to function and rapid decompensation Time Spent With Patient Time: Total time managing care of this patient today ____ minutes.
[2022-12-04 13:00] VITALS: BP 112/67
[2022-12-04] MEDS: Gabapentin 300 MG CAPSULE PO ×2 (14:35→22:12)
[2022-12-04 22:10] VITALS: BP 112/82; PULSE 94; RESP 16; TEMP 36.6; O2SAT 99
[2022-12-04] MEDS: cloNIDine HCL 0.1 MG TABLET PO (22:12)
[2022-12-04] MEDS: traZODone HCL 50 MG TABLET PO (22:12)
[2022-12-05 09:19] VITALS: BP 132/78; PULSE 95; RESP 16; TEMP 36.6
[2022-12-05] MEDS: hydrOXYzine HCL 25 MG TABLET PO ×3 (09:20→21:36)
[2022-12-05] MEDS: Gabapentin 300 MG CAPSULE PO ×3 (09:20→21:30)
[2022-12-05] MEDS: cloNIDine HCL 0.2 MG TABLET PO ×3 (09:20→17:56)
[2022-12-05] MEDS: carBAMazepine ER 200 MG TAB.ER.12H PO ×2 (09:20→21:31)
[2022-12-05] MEDS: Venlafaxine HCl ER 75 MG CAP.ER.24H PO (09:20)
[2022-12-05] MEDS: Nicotine 21 MG PATCH.TD24 TRANSDERMA (09:24)
[2022-12-05] MEDS: Acetaminophen 325 MG TABLET 650 MG PO ×2 (09:24→15:23)
[2022-12-05] MEDS: Nicotine Polacrilex 2 MG GUM 4 MG BUCCAL ×5 (09:24→21:36)
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
[2022-12-05 12:56] VITALS: BP 120/64; PULSE 97; RESP 16
[2022-12-05 17:55] VITALS: BP 111/58; PULSE 90; TEMP 36.3
[2022-12-05] MEDS: cloNIDine HCL 0.1 MG TABLET PO (21:30)
[2022-12-05] MEDS: traZODone HCL 50 MG TABLET PO (21:36)
[2022-12-06 06:00] VITALS: BP 128/66; PULSE 82; RESP 16; TEMP 36.2; O2SAT 100
[2022-12-06 07:00] VITALS: BMI 28.2
[2022-12-06] MEDS: Gabapentin 300 MG CAPSULE PO ×3 (08:54→22:48)
[2022-12-06] MEDS: Venlafaxine HCl ER 75 MG CAP.ER.24H PO (08:54)
[2022-12-06] MEDS: carBAMazepine ER 200 MG TAB.ER.12H PO ×2 (08:54→22:48)
[2022-12-06] MEDS: cloNIDine HCL 0.2 MG TABLET PO ×3 (08:54→18:34)
[2022-12-06] MEDS: hydrOXYzine HCL 25 MG TABLET PO ×3 (08:54→22:51)
[2022-12-06] MEDS: Nicotine 21 MG PATCH.TD24 TRANSDERMA (09:19)
[2022-12-06] MEDS: Nicotine Polacrilex 2 MG GUM 4 MG BUCCAL ×5 (09:20→22:48)
[2022-12-06] MEDS: Acetaminophen 325 MG TABLET 650 MG PO (09:20)
--- NOTE | 2022-12-06 10:13 | HO.PSYCHPN ---
Subjective Subjective Date of Service: 12/06/22 Reason For Visit: Post Traumatic Stress Disorder Interim History: Met with patient; discussed with team Patient reports that his anxiety is a little bit less and of note his affect is brighter, smiling somewhat, much more social in the milieu. However Patient reports he continues to have much anxiety and panic attacks though maybe a little less frequently. Patient remains somatically preoccupied and explained that if he sticks his finger in his right ear his vision changes; this does not happen if he sticks his finger in his left ear. Patient said he has seen doctors and this has been going on for several years without diagnosis. Patient listed ways anxiety has been debilitating but he is hoping that he is on the road to decreasing in severity. Mental Status Exam Mental Status Exam Narrative: Pt is alert and oriented; behavior is cooperative, more friendly, still anxious; dressed in combo of hospital attire and casual cloths; scruffy facial hair, marginal hygiene; mood is described as anxious and affect congruent, but more calm than before; eye contact appropriate; Speech is normal rate, volume and prosody and not pressured; some psychomotor retardation present; thought process is goal directed; Thought content is on preoccupied with talking about anxiety symptoms; otherwise pertinent to relevant topics and without any delusional content, paranoid ideations or grandiosity; no SI; no HI. There is no evidence of perceptual disturbance. Patients insight and judgment impaired Diagnostics Vital Signs (24Hr): Vital Signs - 24 hr 12/05/22 12:56 12/05/22 17:55 12/06/22 06:00 Temperature 97.3 F 97.2 F Pulse Rate 97 90 82 Respiratory Rate 16 16 Blood Pressure 120/64 111/58 L 128/66 Pulse Oximetry 100 BMI result Body Mass Index 26.4 Imaging Radiology Impressions: ITS Impressions Head CT 12/03/22 09:09 IMPRESSION: No acute intracranial pathology. Medications Medications Current Medications Acetaminophen (Acetaminophen 325 Mg Tablet) 650 mg PO Q6H PRN PRN Reason: Headache/Pain Mild Scale (1-3) Last Admin: 12/06/22 09:20 Dose: 650 mg Al Hydroxide/Mg Hydroxide (Magnesium Hydrox/Alum Hydrox 30 Ml Oral.Susp) 30 ml PO Q6H PRN PRN Reason: Heartburn/Nausea Carbamazepine (Carbamazepine Er 200 Mg Tab.Er.12h) 200 mg PO BID [facility] Last Admin: 12/06/22 08:54 Dose: 200 mg Clonidine HCl (Clonidine Hcl 0.1 Mg Tablet) 0.1 mg PO BEDTIME [facility]; Protocol Last Admin: 12/05/22 21:30 Dose: 0.1 mg Clonidine HCl (Clonidine Hcl 0.2 Mg Tablet) 0.2 mg PO Q4H PRN; Protocol PRN Reason: anxiety Last Admin: 12/06/22 08:54 Dose: 0.2 mg Gabapentin (Gabapentin 300 Mg Capsule) 300 mg PO TID [facility] Last Admin: 12/06/22 08:54 Dose: 300 mg Hydroxyzine HCl (Hydroxyzine Hcl 25 Mg Tablet) 25 mg PO Q6H PRN PRN Reason: Anxiety Last Admin: 12/06/22 08:54 Dose: 25 mg Lorazepam (Lorazepam 0.5 Mg Tablet) 0.5 mg PO BID PRN PRN Reason: severe anxiety/panic Last Admin: 12/05/22 16:58 Dose: 0.5 mg Magnesium Hydroxide (Milk Of Magnesia 30 Ml Oral.Susp) 30 ml PO DAILY PRN PRN Reason: Constipation Nicotine (Nicotine 21 Mg Patch.Td24) 21 mg TRANSDERMA DAILY PRN PRN Reason: smoking cessation Last Admin: 12/06/22 09:19 Dose: 21 mg Nicotine Polacrilex (Nicotine Polacrilex 2 Mg Gum) 4 mg BUCCAL Q2H PRN PRN Reason: nicotine cravings Last Admin: 12/06/22 09:20 Dose: 4 mg Trazodone HCl (Trazodone Hcl 50 Mg Tablet) 50 mg PO BEDTIME MRX1 PRN PRN Reason: Insomnia Last Admin: 12/05/22 21:36 Dose: 50 mg Venlafaxine HCl (Venlafaxine Hcl Er 75 Mg Cap.Er.24h) 75 mg PO DAILY [facility] Last Admin: 12/06/22 08:54 Dose: 75 mg Venlafaxine HCl (Venlafaxine Hcl Er 37.5 Mg Cap.Er.24h) 37.5 mg PO DAILY [facility] Last Admin: 12/06/22 08:54 Dose: 37.5 mg Allergies Allergies Allergy/AdvReac Type Severity Reaction Status Date / Time amoxicillin Allergy Severe Rash Verified 11/28/22 13:16 cephalexin [From Keflex] Allergy Severe Rash Verified 11/28/22 13:16 Assessment & Plan Assessment & Plan (1) SAWYER (generalized anxiety disorder): Status: Acute Code(s): F41.1 - Generalized anxiety disorder (2) OCD (obsessive compulsive disorder): Status: Suspected Code(s): F42.9 - Obsessive-compulsive disorder, unspecified (3) PTSD (post-traumatic stress disorder): Status: Acute Code(s): F43.10 - Post-traumatic stress disorder, unspecified (4) MDD (major depressive disorder), recurrent severe, without psychosis: Status: Acute Code(s): F33.2 - Major depressive disorder, recurrent severe without psychotic features Plan Patient is a 37-year-old male with history of MDD, PTSD and severe anxiety who presents for worsening anxiety. Patient lives in a tent in the [facility] and has for 3 years. He reports that his anxiety has been worsening over the past few months but especially so the past few weeks. He is not sure why but says that he feels terrified of many different things, a small sound will send him into a panic where he gets sweaty, starts to hyperventilate, the muscles tense, and he starts to feel confused. Patient reports other associated neurological complaints such as being dizzy or having trouble walking but all in the context of panic/anxiety. Patient is clearly very anxious during interview and [place] about very little else. Patient says his anxiety is all the time and that recently he does lied in his tent for 3 days in a row hardly moving, just looking at the ceiling. Patient denies any history of manic episodes; denies AVH; denies alcohol or drug use; patient has passive SI, wishing he were but no intent or plans and no history of attempts. Patient recently at [facility] respite and was started on venlafaxine which he has taken daily and agrees to increase now. Impression: Patient has severe anxiety; will need to explore further and determine if patient has OCD. History of trauma and PTSD symptoms contributory. No obvious psychotic symptoms Hospital course: 12/03 remains very anxious and somatically pre-occupied. c/o irritable edge and asks for Tegretol. Remote possibility that pt could have some mixed manic symptoms but since does not want Trileptal will start Tegretol (which he asks for by name; says Trileptal may have made anxiety worse-though this is thought is quite possibly just product of anxiety). Gabapentin prn for anxiety. Headache is mostly all resolved Head CT unremarkable 12/05 remains very anxious, somatically preoccupied; will increase venlafaxine; will get labs for Tegretol level before increasing. Patient says he has history of intermittent explosive disorder and can get very angry where he breaks and throws things. 12/06 thinks maybe a little less anxious; did get angry but stated control; continue current treatment plan Plan: CV Q 15 minute checks? Will add Ativan 0.5 mg b.i.d. p.r.n. for severe anxiety trying to avoid benzos however patient does not have substance abuse history and has panic attacks Continue Tegretol XR 200 mg b.i.d.; since patient reports agitated, irritable edge to his anxiety will replace Trileptal Increase to venlafaxine ER 112.5 mg Continue gabapentin 300 mg t.i.d.; switch to scheduled over the weekend Continue clonidine 0.2 mg q.4h p.r.n. for anxiety (bp stable) and 0.1 mg scheduled q.h.s. for trouble sleeping DC Zyprexa patient feels combination of sedating into agitating DC Trileptal Patient educated on: diagnosis, medication risk/benefits and therapeutic strategies Informed Consent: understands Reason for continued inpatient stay Substantial Risk for: inability to function and rapid decompensation Time Spent With Patient Time: Total time managing care of this patient today ____ minutes.
[2022-12-06 16:52] VITALS: BP 121/62; PULSE 88; TEMP 36.2; O2SAT 97
[2022-12-06] MEDS: traZODone HCL 50 MG TABLET PO (22:48)
[2022-12-06] MEDS: cloNIDine HCL 0.1 MG TABLET PO (22:48)
[2022-12-07 08:05] VITALS: BP 129/78; PULSE 70; RESP 16; TEMP 36.2; O2SAT 100
[2022-12-07] MEDS: carBAMazepine ER 200 MG TAB.ER.12H PO ×2 (08:37→23:17)
[2022-12-07] MEDS: Venlafaxine HCl ER 75 MG CAP.ER.24H PO (08:37)
[2022-12-07] MEDS: Gabapentin 300 MG CAPSULE PO ×3 (08:37→23:17)
[2022-12-07] MEDS: hydrOXYzine HCL 25 MG TABLET PO ×3 (08:41→23:16)
[2022-12-07] MEDS: Nicotine Polacrilex 2 MG GUM 4 MG BUCCAL ×5 (08:41→23:16)
[2022-12-07] MEDS: Nicotine 21 MG PATCH.TD24 TRANSDERMA (08:41)
[2022-12-07] MEDS: Acetaminophen 325 MG TABLET 650 MG PO ×2 (08:43→15:17)
[2022-12-07] MEDS: cloNIDine HCL 0.2 MG TABLET PO ×3 (09:26→17:02)
--- NOTE | 2022-12-07 09:35 | HO.PSYCHPN ---
Subjective Subjective Date of Service: 12/07/22 Reason For Visit: Post Traumatic Stress Disorder Interim History: Met with patient; discussed with team Patient remains very anxious; agrees to increasing venlafaxine. Continues to complain of right ear and medical consult called Mental Status Exam Mental Status Exam Narrative: Pt is alert and oriented; behavior is cooperative, more friendly, still anxious; dressed in combo of hospital attire and casual cloths; scruffy facial hair, marginal hygiene; mood is described as anxious and affect congruent, but more calm than before; eye contact appropriate; Speech is normal rate, volume and prosody and not pressured; some psychomotor retardation present; thought process is goal directed; Thought content is on preoccupied with talking about anxiety symptoms; otherwise pertinent to relevant topics and without any delusional content, paranoid ideations or grandiosity; no SI; no HI. There is no evidence of perceptual disturbance. Patients insight and judgment impaired Diagnostics Vital Signs (24Hr): Vital Signs - 24 hr 12/06/22 16:52 12/07/22 08:05 Temperature 97.1 F 97.2 F Pulse Rate 88 70 Respiratory Rate 16 Blood Pressure 121/62 129/78 Pulse Oximetry 97 100 Oxygen Delivery Method Room Air Room Air BMI result Body Mass Index 28.2 Imaging Radiology Impressions: ITS Impressions Head CT 12/03/22 09:09 IMPRESSION: No acute intracranial pathology. Medications Medications Current Medications Acetaminophen (Acetaminophen 325 Mg Tablet) 650 mg PO Q6H PRN PRN Reason: Headache/Pain Mild Scale (1-3) Last Admin: 12/07/22 08:43 Dose: 650 mg Al Hydroxide/Mg Hydroxide (Magnesium Hydrox/Alum Hydrox 30 Ml Oral.Susp) 30 ml PO Q6H PRN PRN Reason: Heartburn/Nausea Carbamazepine (Carbamazepine Er 200 Mg Tab.Er.12h) 200 mg PO BID [facility] Last Admin: 12/07/22 08:37 Dose: 200 mg Clonidine HCl (Clonidine Hcl 0.1 Mg Tablet) 0.1 mg PO BEDTIME [facility]; Protocol Last Admin: 12/06/22 22:48 Dose: 0.1 mg Clonidine HCl (Clonidine Hcl 0.2 Mg Tablet) 0.2 mg PO Q4H PRN; Protocol PRN Reason: anxiety Last Admin: 12/07/22 09:26 Dose: 0.2 mg Gabapentin (Gabapentin 300 Mg Capsule) 300 mg PO TID [facility] Last Admin: 12/07/22 08:37 Dose: 300 mg Hydroxyzine HCl (Hydroxyzine Hcl 25 Mg Tablet) 25 mg PO Q6H PRN PRN Reason: Anxiety Last Admin: 12/07/22 08:41 Dose: 25 mg Lorazepam (Lorazepam 0.5 Mg Tablet) 0.5 mg PO BID PRN PRN Reason: severe anxiety/panic Last Admin: 12/07/22 08:41 Dose: 0.5 mg Magnesium Hydroxide (Milk Of Magnesia 30 Ml Oral.Susp) 30 ml PO DAILY PRN PRN Reason: Constipation Nicotine (Nicotine 21 Mg Patch.Td24) 21 mg TRANSDERMA DAILY PRN PRN Reason: smoking cessation Last Admin: 12/07/22 08:41 Dose: 21 mg Nicotine Polacrilex (Nicotine Polacrilex 2 Mg Gum) 4 mg BUCCAL Q2H PRN PRN Reason: nicotine cravings Last Admin: 12/07/22 08:41 Dose: 4 mg Trazodone HCl (Trazodone Hcl 50 Mg Tablet) 50 mg PO BEDTIME MRX1 PRN PRN Reason: Insomnia Last Admin: 12/06/22 22:48 Dose: 50 mg Venlafaxine HCl (Venlafaxine Hcl Er 75 Mg Cap.Er.24h) 75 mg PO DAILY [facility] Last Admin: 12/07/22 08:37 Dose: 75 mg Venlafaxine HCl (Venlafaxine Hcl Er 37.5 Mg Cap.Er.24h) 37.5 mg PO DAILY [facility] Last Admin: 12/07/22 08:37 Dose: 37.5 mg Allergies Allergies Allergy/AdvReac Type Severity Reaction Status Date / Time amoxicillin Allergy Severe Rash Verified 11/28/22 13:16 cephalexin [From Keflex] Allergy Severe Rash Verified 11/28/22 13:16 Assessment & Plan Assessment & Plan (1) SAWYER (generalized anxiety disorder): Status: Acute Code(s): F41.1 - Generalized anxiety disorder (2) OCD (obsessive compulsive disorder): Status: Suspected Code(s): F42.9 - Obsessive-compulsive disorder, unspecified (3) PTSD (post-traumatic stress disorder): Status: Acute Code(s): F43.10 - Post-traumatic stress disorder, unspecified (4) MDD (major depressive disorder), recurrent severe, without psychosis: Status: Acute Code(s): F33.2 - Major depressive disorder, recurrent severe without psychotic features Plan Patient is a 37-year-old male with history of MDD, PTSD and severe anxiety who presents for worsening anxiety. Patient lives in a tent in the [facility] and has for 3 years. He reports that his anxiety has been worsening over the past few months but especially so the past few weeks. He is not sure why but says that he feels terrified of many different things, a small sound will send him into a panic where he gets sweaty, starts to hyperventilate, the muscles tense, and he starts to feel confused. Patient reports other associated neurological complaints such as being dizzy or having trouble walking but all in the context of panic/anxiety. Patient is clearly very anxious during interview and [place] about very little else. Patient says his anxiety is all the time and that recently he does lied in his tent for 3 days in a row hardly moving, just looking at the ceiling. Patient denies any history of manic episodes; denies AVH; denies alcohol or drug use; patient has passive SI, wishing he were but no intent or plans and no history of attempts. Patient recently at [facility] respite and was started on venlafaxine which he has taken daily and agrees to increase now. Impression: Patient has severe anxiety; will need to explore further and determine if patient has OCD. History of trauma and PTSD symptoms contributory. No obvious psychotic symptoms Hospital course: 12/03 remains very anxious and somatically pre-occupied. c/o irritable edge and asks for Tegretol. Remote possibility that pt could have some mixed manic symptoms but since does not want Trileptal will start Tegretol (which he asks for by name; says Trileptal may have made anxiety worse-though this is thought is quite possibly just product of anxiety). Gabapentin prn for anxiety. Headache is mostly all resolved Head CT unremarkable 12/05 remains very anxious, somatically preoccupied; will increase venlafaxine; will get labs for Tegretol level before increasing. Patient says he has history of intermittent explosive disorder and can get very angry where he breaks and throws things. 12/06 thinks maybe a little less anxious; did get angry but stated control; continue current treatment plan 12/07 still very anxious; will check Tegretol level tomorrow and consider increasing Medical consult called to assess right inner ear pain Plan: CV Q 15 minute checks? Will add Ativan 0.5 mg b.i.d. p.r.n. for severe anxiety trying to avoid benzos however patient does not have substance abuse history and has panic attacks Continue Tegretol XR 200 mg b.i.d.; since patient reports agitated, irritable edge to his anxiety will replace Trileptal CHECK: Tegretol level; consider increasing continue venlafaxine ER 112.5 mg Continue gabapentin 300 mg t.i.d.; switch to scheduled over the weekend Continue clonidine 0.2 mg q.4h p.r.n. for anxiety (bp stable) and 0.1 mg scheduled q.h.s. for trouble sleeping DC Zyprexa patient feels combination of sedating into agitating DC Trileptal Patient educated on: diagnosis and medication risk/benefits Informed Consent: understands and further education needed Reason for continued inpatient stay Substantial Risk for: inability to function and rapid decompensation Time Spent With Patient Time: Total time managing care of this patient today ____ minutes.
--- NOTE | 2022-12-07 15:16 | PM.EVENT ---
Documented by User: MAURA Emanuel 12/07/22 15:28 Event Note Date of Service: 12/07/22 Event Note: Medical consult for right ear pain with possible effusion. Upon interview patient denies right ear pain or effusion, but patient states if he presses on his tragus it creates a pressure that then causes his vision to ?shift? and ?jump up and down?. Says this does not occur with his left ear. Patient also notes that there are times when he feels like he is lilting to the left when walking, and sometimes this can cause him to stumble and lose balance. Patient states that this has been ongoing for the past 7+ years, but he forgot about it for a while and only recently remembered about this condition while in the hospital. He originally saw a specialist 7 years ago while in [place], but has not followed up with any practitioner since then. Physical exam revealed clear external auditory canals bilaterally, no sign of otitis externa. Tympanic membrane clearly visualized bilaterally with good light reflex and inner ear landmarks well-visualized. Tympanic membranes without bulging or rupture. Neurological exam showed no focal deficits. There is no indication for hospital treatment or antibiotics. Patient should follow-up outpatient with PCP for specialist referral for additional workup. Patient also complains of occasional mild dental pain, and dental cavities and potential abscesses. Patient with multiple dental caries noted, but no signs of dental abscesses. Patient should follow-up outpatient with a dentist for additional treatment. Thank you for allowing us to participate in the care of this patient. Signing off at this time. Please let us know if there are any acute complaints or questions. Time Spent With Patient Time: Total time managing care of this patient today ____ minutes. Documented by User: Coleman Quintanilla MD 12/07/22 18:58 Event Note Date of Service: 12/07/22
[2022-12-07 16:17] VITALS: BP 126/60; PULSE 88; TEMP 36.9; O2SAT 98
[2022-12-07] MEDS: cloNIDine HCL 0.1 MG TABLET PO (23:16)
[2022-12-07] MEDS: traZODone HCL 50 MG TABLET PO (23:16)
[2022-12-07] MEDS: Throat Lozenge, Medicated LOZENGE 1 LOZENGE MUCOUS MEM (23:21)
[2022-12-08 08:09] LABS: Alanine Aminotransferase 52 U/L (0-40); Albumin Level 4.1 g/dL (3.5-5.0); Alkaline Phosphatase 68 U/L (39-117); Anion Gap 13 (12-20); Aspartate Amino Transferase 23 U/L (5-37); Bilirubin Total 0.4 mg/dL (0.0-1.0); Blood Urea Nitrogen 19 mg/dL (9-16); Calcium 9.9 mg/dL (8.4-10.2); Carbon Dioxide 29 mmol/L (22-29); Chloride 105 mmol/L (96-108); Creatinine Clr Calc Pharmacy 113.5; Estimated Glomerular Filt Rate > 60; Glucose Random 87 mg/dL (60-115); Potassium 4.3 mmol/L (3.3-5.1); Sodium 143 mmol/L (135-145); Total Protein 6.7 g/dL (6.5-8.0)
[2022-12-08 09:40] VITALS: BP 146/70; PULSE 100; RESP 16; TEMP 36.4; O2SAT 96
[2022-12-08] MEDS: carBAMazepine ER 200 MG TAB.ER.12H PO ×2 (09:43→21:19)
[2022-12-08] MEDS: Venlafaxine HCl ER 75 MG CAP.ER.24H PO (09:43)
[2022-12-08] MEDS: Gabapentin 300 MG CAPSULE PO ×3 (09:43→21:19)
[2022-12-08] MEDS: hydrOXYzine HCL 25 MG TABLET PO ×3 (09:47→21:42)
[2022-12-08] MEDS: cloNIDine HCL 0.1 MG TABLET PO ×2 (09:47→21:23)
[2022-12-08] MEDS: Acetaminophen 325 MG TABLET 650 MG PO (09:51)
[2022-12-08] MEDS: Nicotine Polacrilex 2 MG GUM 4 MG BUCCAL ×4 (09:51→21:19)
[2022-12-08] MEDS: Nicotine 21 MG PATCH.TD24 TRANSDERMA (09:51)
--- NOTE | 2022-12-08 10:10 | HO.PSYCHPN ---
Subjective Subjective Date of Service: 12/08/22 Reason For Visit: Post Traumatic Stress Disorder Subjective Notes: Conditional Voluntary Healthcare Proxy: No Guardianship: No Medical Problems Affecting Mental Status: Yes (though tells me issue with right ear x 8 years!) Interim History: 37 yo WM reports he is not doing well when woke up was depressed, then changed it to was ok till after am meds- thinks effexor not work, also thinks ativan making him groggy headed and depressed- this provider coordinated care with dr duron and tabitha mendes with trial of low dose risperidone alternative given level of perseveration Medication Compliance: Yes Side effects from medications: Yes (subjective experience- non specific hard to ddx from anxiety ) Attending Groups: Intermittent Review of Systems Acute medical concerns: No Medical Review of Systems: unchanged Mental Status Exam Mental Status Exam Patient Appearance: Appropriate Patient Orientation: Person, Place, Time and Situation Level of Consciousness: Awake Patient Behavior: Cooperative, Passive, Resistive to Care and Poor Eye Contact Mood Description: Anxious Affect Description: Blunted Patient Cognition Impaired: No Ability to Follow Directions: Fair Speech Pattern: Perseverating and Rambling Delusions: Present (? somatic delusion re right ear touching causing odd sensory reaction) Thought Process: Intact Thought Content: positive for Obsessional Thoughts, positive for Circumstantial and positive for Perseveration Depressive Symptoms: Increased Anxiety, Diff. Making Decisions, Muscle Tension and Increased Irritability Abnormal Motor Activity Signs and Symptoms: Restlessness Judgement: Fair Diagnostics Vital Signs (24Hr): Vital Signs - 24 hr 12/07/22 16:17 12/08/22 09:40 Temperature 98.4 F 97.6 F Pulse Rate 88 100 Respiratory Rate 16 Blood Pressure 126/60 146/70 H Pulse Oximetry 98 96 Oxygen Delivery Method Room Air Room Air BMI result Body Mass Index 28.2 Labs 12/08/22 07:32 Labs: Laboratory Results - last 48 hr 12/08/22 07:32 Sodium 143 Potassium 4.3 Chloride 105 Carbon Dioxide 29 Anion Gap 13 BUN 19 H Creatinine 0.99 Estim Creat Clear Calc 113.5 Estimated GFR > 60 Random Glucose 87 Calcium 9.9 Total Bilirubin 0.4 AST 23 ALT 52 H Alkaline Phosphatase 68 Total Protein 6.7 Albumin 4.1 Imaging Radiology Impressions: ITS Impressions Head CT 12/03/22 09:09 IMPRESSION: No acute intracranial pathology. Medications Medications Current Medications Acetaminophen (Acetaminophen 325 Mg Tablet) 650 mg PO Q6H PRN PRN Reason: Headache/Pain Mild Scale (1-3) Last Admin: 12/08/22 09:51 Dose: 650 mg Al Hydroxide/Mg Hydroxide (Magnesium Hydrox/Alum Hydrox 30 Ml Oral.Susp) 30 ml PO Q6H PRN PRN Reason: Heartburn/Nausea Benzocaine (Throat Lozenge, Medicated Lozenge) 1 lozenge MUCOUS MEM Q2H PRN PRN Reason: Sore Throat Last Admin: 12/07/22 23:21 Dose: 1 lozenge Carbamazepine (Carbamazepine Er 200 Mg Tab.Er.12h) 200 mg PO BID JAE Last Admin: 12/08/22 09:43 Dose: 200 mg Clonidine HCl (Clonidine Hcl 0.1 Mg Tablet) 0.1 mg PO BEDTIME JAE; Protocol Last Admin: 12/08/22 09:47 Dose: 0.1 mg Clonidine HCl (Clonidine Hcl 0.2 Mg Tablet) 0.2 mg PO Q4H PRN; Protocol PRN Reason: anxiety Last Admin: 12/07/22 17:02 Dose: 0.2 mg Gabapentin (Gabapentin 300 Mg Capsule) 300 mg PO TID JAE Last Admin: 12/08/22 09:43 Dose: 300 mg Hydroxyzine HCl (Hydroxyzine Hcl 25 Mg Tablet) 25 mg PO Q6H PRN PRN Reason: Anxiety Last Admin: 12/08/22 09:47 Dose: 25 mg Lorazepam (Lorazepam 0.5 Mg Tablet) 0.5 mg PO BID PRN PRN Reason: severe anxiety/panic Last Admin: 12/08/22 09:51 Dose: 0.5 mg Magnesium Hydroxide (Milk Of Magnesia 30 Ml Oral.Susp) 30 ml PO DAILY PRN PRN Reason: Constipation Nicotine (Nicotine 21 Mg Patch.Td24) 21 mg TRANSDERMA DAILY PRN PRN Reason: smoking cessation Last Admin: 12/08/22 09:51 Dose: 21 mg Nicotine Polacrilex (Nicotine Polacrilex 2 Mg Gum) 4 mg BUCCAL Q2H PRN PRN Reason: nicotine cravings Last Admin: 12/08/22 09:51 Dose: 4 mg Trazodone HCl (Trazodone Hcl 50 Mg Tablet) 50 mg PO BEDTIME MRX1 PRN PRN Reason: Insomnia Last Admin: 12/07/22 23:16 Dose: 50 mg Venlafaxine HCl (Venlafaxine Hcl Er 75 Mg Cap.Er.24h) 75 mg PO DAILY [facility] Last Admin: 12/08/22 09:43 Dose: 75 mg Venlafaxine HCl (Venlafaxine Hcl Er 37.5 Mg Cap.Er.24h) 37.5 mg PO DAILY [facility] Last Admin: 12/08/22 09:43 Dose: 37.5 mg Allergies Allergies Allergy/AdvReac Type Severity Reaction Status Date / Time amoxicillin Allergy Severe Rash Verified 11/28/22 13:16 cephalexin [From Keflex] Allergy Severe Rash Verified 11/28/22 13:16 Assessment & Plan Assessment & Plan (1) SAWYER (generalized anxiety disorder): Status: Acute Code(s): F41.1 - Generalized anxiety disorder (2) OCD (obsessive compulsive disorder): Status: Suspected Code(s): F42.9 - Obsessive-compulsive disorder, unspecified Assessment and Plan: 12/08 dced ativan trial low dose risperidone (3) PTSD (post-traumatic stress disorder): Status: Acute Code(s): F43.10 - Post-traumatic stress disorder, unspecified (4) MDD (major depressive disorder), recurrent severe, without psychosis: Status: Acute Code(s): F33.2 - Major depressive disorder, recurrent severe without psychotic features Plan Patient is a 37-year-old male with history of MDD, PTSD and severe anxiety who presents for worsening anxiety. Patient lives in a tent in the [facility] and has for 3 years. He reports that his anxiety has been worsening over the past few months but especially so the past few weeks. He is not sure why but says that he feels terrified of many different things, a small sound will send him into a panic where he gets sweaty, starts to hyperventilate, the muscles tense, and he starts to feel confused. Patient reports other associated neurological complaints such as being dizzy or having trouble walking but all in the context of panic/anxiety. Patient is clearly very anxious during interview and [place] about very little else. Patient says his anxiety is all the time and that recently he does lied in his tent for 3 days in a row hardly moving, just looking at the ceiling. Patient denies any history of manic episodes; denies AVH; denies alcohol or drug use; patient has passive SI, wishing he were but no intent or plans and no history of attempts. Patient recently at [facility] respite and was started on venlafaxine which he has taken daily and agrees to increase now. Impression: Patient has severe anxiety; will need to explore further and determine if patient has OCD. History of trauma and PTSD symptoms contributory. No obvious psychotic symptoms Hospital course: 12/03 remains very anxious and somatically pre-occupied. c/o irritable edge and asks for Tegretol. Remote possibility that pt could have some mixed manic symptoms but since does not want Trileptal will start Tegretol (which he asks for by name; says Trileptal may have made anxiety worse-though this is thought is quite possibly just product of anxiety). Gabapentin prn for anxiety. Headache is mostly all resolved Head CT unremarkable 12/05 remains very anxious, somatically preoccupied; will increase venlafaxine; will get labs for Tegretol level before increasing. Patient says he has history of intermittent explosive disorder and can get very angry where he breaks and throws things. 12/06 thinks maybe a little less anxious; did get angry but stated control; continue current treatment plan 12/07 still very anxious; will check Tegretol level tomorrow and consider increasing Medical consult called to assess right inner ear pain Plan: CV Q 15 minute checks? Will add Ativan 0.5 mg b.i.d. p.r.n. for severe anxiety trying to avoid benzos however patient does not have substance abuse history and has panic attacks Continue Tegretol XR 200 mg b.i.d.; since patient reports agitated, irritable edge to his anxiety will replace Trileptal CHECK: Tegretol level; consider increasing continue venlafaxine ER 112.5 mg Continue gabapentin 300 mg t.i.d.; switch to scheduled over the weekend Continue clonidine 0.2 mg q.4h p.r.n. for anxiety (bp stable) and 0.1 mg scheduled q.h.s. for trouble sleeping DC Zyprexa patient feels combination of sedating into agitating DC Trileptal Patient educated on: medication risk/benefits and therapeutic strategies Informed Consent: further education needed Reason for continued inpatient stay Substantial Risk for: harm to self and rapid decompensation Time Spent With Patient Time: Total time managing care of this patient today ____ minutes.
[2022-12-08] MEDS: cloNIDine HCL 0.2 MG TABLET PO ×2 (12:14→16:47)
[2022-12-08 16:30] VITALS: BP 136/52; PULSE 105; TEMP 36.8; O2SAT 98
[2022-12-08] MEDS: traZODone HCL 50 MG TABLET PO (21:21)
[2022-12-08] MEDS: Magnesium Hydrox/Alum Hydrox 30 ML ORAL.SUSP PO (21:42)
--- NOTE | 2022-12-08 21:43 | PC.NURSE ---
pt was given nighttime dose of clonidine 0.1 mg unscheduled due to a clonidine dose being accidentally scanned in the same spot in the morning.
[2022-12-09 08:00] VITALS: BP 128/83; PULSE 91; RESP 18; TEMP 36.4; O2SAT 97
[2022-12-09] MEDS: carBAMazepine ER 200 MG TAB.ER.12H PO ×2 (08:40→21:16)
[2022-12-09] MEDS: Venlafaxine HCl ER 75 MG CAP.ER.24H PO (08:40)
[2022-12-09] MEDS: Gabapentin 300 MG CAPSULE PO ×3 (08:41→21:16)
--- NOTE | 2022-12-09 10:29 | HO.PSYCHPN ---
Subjective Subjective Date of Service: 12/09/22 Reason For Visit: Post Traumatic Stress Disorder Subjective Notes: Conditional Voluntary Healthcare Proxy: No Guardianship: No Medical Problems Affecting Mental Status: No Interim History: Pt continues to be worried -about his mental health going backwards- willing to give risperidone a try - and discuss with dr Mcgovern- tomorrow- Medication Compliance: Yes Side effects from medications: No Attending Groups: Intermittent Review of Systems Acute medical concerns: No Medical Review of Systems: unchanged Mental Status Exam Mental Status Exam Patient Appearance: Well Grooomed and Appropriate Patient Orientation: Person, Place, Time and Situation Level of Consciousness: Awake Patient Behavior: Appropriate and Passive Mood Description: Anxious and Apprehensive Affect Description: Constricted Patient Cognition Impaired: No Ability to Follow Directions: Good Speech Pattern: Clear, Soft-Spoken and Long Pauses Hallucinations: None Delusions: Present (? somatic delusions) Thought Process: Intact Thought Content: positive for Obsessional Thoughts and positive for Perseveration Depressive Symptoms: Diff. Making Decisions and Difficulty Concentrating Judgement: Fair Diagnostics Vital Signs (24Hr): Vital Signs - 24 hr 12/08/22 16:30 Temperature 98.2 F Pulse Rate 105 H Blood Pressure 136/52 L Pulse Oximetry 98 Oxygen Delivery Method Room Air BMI result Body Mass Index 28.2 Labs 12/08/22 07:32 Labs: Laboratory Results - last 48 hr 12/08/22 12/08/22 07:32 07:32 Sodium 143 Potassium 4.3 Chloride 105 Carbon Dioxide 29 Anion Gap 13 BUN 19 H Creatinine 0.99 Estim Creat Clear Calc 113.5 Estimated GFR > 60 Random Glucose 87 Calcium 9.9 Total Bilirubin 0.4 AST 23 ALT 52 H Alkaline Phosphatase 68 Total Protein 6.7 Albumin 4.1 Carbamazepine 5.8 Imaging Radiology Impressions: ITS Impressions Head CT 12/03/22 09:09 IMPRESSION: No acute intracranial pathology. Medications Medications Current Medications Acetaminophen (Acetaminophen 325 Mg Tablet) 650 mg PO Q6H PRN PRN Reason: Headache/Pain Mild Scale (1-3) Last Admin: 12/08/22 09:51 Dose: 650 mg Al Hydroxide/Mg Hydroxide (Magnesium Hydrox/Alum Hydrox 30 Ml Oral.Susp) 30 ml PO Q6H PRN PRN Reason: Heartburn/Nausea Last Admin: 12/08/22 21:42 Dose: 30 ml Benzocaine (Throat Lozenge, Medicated Lozenge) 1 lozenge MUCOUS MEM Q2H PRN PRN Reason: Sore Throat Last Admin: 12/07/22 23:21 Dose: 1 lozenge Carbamazepine (Carbamazepine Er 200 Mg Tab.Er.12h) 200 mg PO BID JAE Last Admin: 12/09/22 08:40 Dose: 200 mg Clonidine HCl (Clonidine Hcl 0.1 Mg Tablet) 0.1 mg PO BEDTIME JAE; Protocol Last Admin: 12/08/22 21:23 Dose: 0.1 mg Clonidine HCl (Clonidine Hcl 0.2 Mg Tablet) 0.2 mg PO Q4H PRN; Protocol PRN Reason: anxiety Last Admin: 12/08/22 16:47 Dose: 0.2 mg Gabapentin (Gabapentin 300 Mg Capsule) 300 mg PO TID JAE Last Admin: 12/09/22 08:41 Dose: 300 mg Hydroxyzine HCl (Hydroxyzine Hcl 25 Mg Tablet) 25 mg PO Q6H PRN PRN Reason: Anxiety Last Admin: 12/08/22 21:42 Dose: 25 mg Magnesium Hydroxide (Milk Of Magnesia 30 Ml Oral.Susp) 30 ml PO DAILY PRN PRN Reason: Constipation Nicotine (Nicotine 21 Mg Patch.Td24) 21 mg TRANSDERMA DAILY PRN PRN Reason: smoking cessation Last Admin: 12/08/22 09:51 Dose: 21 mg Nicotine Polacrilex (Nicotine Polacrilex 2 Mg Gum) 4 mg BUCCAL Q2H PRN PRN Reason: nicotine cravings Last Admin: 12/08/22 21:19 Dose: 4 mg Risperidone (Risperidone 0.25 Mg Tablet) 0.25 mg PO BID JAE Last Admin: 12/09/22 08:41 Dose: 0.25 mg Risperidone (Risperidone 0.5 Mg Tablet) 0.5 mg PO Q4H PRN PRN Reason: Anxiety Last Admin: 12/08/22 14:33 Dose: 0.5 mg Trazodone HCl (Trazodone Hcl 50 Mg Tablet) 50 mg PO BEDTIME MRX1 PRN PRN Reason: Insomnia Last Admin: 12/08/22 21:21 Dose: 50 mg Venlafaxine HCl (Venlafaxine Hcl Er 75 Mg Cap.Er.24h) 75 mg PO DAILY JAE Last Admin: 12/09/22 08:40 Dose: 75 mg Venlafaxine HCl (Venlafaxine Hcl Er 37.5 Mg Cap.Er.24h) 37.5 mg PO DAILY JAE Last Admin: 12/09/22 08:41 Dose: 37.5 mg Allergies Allergies Allergy/AdvReac Type Severity Reaction Status Date / Time amoxicillin Allergy Severe Rash Verified 11/28/22 13:16 cephalexin [From Keflex] Allergy Severe Rash Verified 11/28/22 13:16 Assessment & Plan Assessment & Plan (1) SAWYER (generalized anxiety disorder): Status: Acute Code(s): F41.1 - Generalized anxiety disorder (2) OCD (obsessive compulsive disorder): Status: Suspected Code(s): F42.9 - Obsessive-compulsive disorder, unspecified Assessment and Plan: 12/08 dced ativan trial low dose risperidone 12/09 added risperidone 0.5mg prn yesterday that helped may want to inc standing dose from 0.25mg bid = (3) PTSD (post-traumatic stress disorder): Status: Acute Code(s): F43.10 - Post-traumatic stress disorder, unspecified (4) MDD (major depressive disorder), recurrent severe, without psychosis: Status: Acute Code(s): F33.2 - Major depressive disorder, recurrent severe without psychotic features Plan Patient is a 37-year-old male with history of MDD, PTSD and severe anxiety who presents for worsening anxiety. Patient lives in a tent in the [facility] and has for 3 years. He reports that his anxiety has been worsening over the past few months but especially so the past few weeks. He is not sure why but says that he feels terrified of many different things, a small sound will send him into a panic where he gets sweaty, starts to hyperventilate, the muscles tense, and he starts to feel confused. Patient reports other associated neurological complaints such as being dizzy or having trouble walking but all in the context of panic/anxiety. Patient is clearly very anxious during interview and [place] about very little else. Patient says his anxiety is all the time and that recently he does lied in his tent for 3 days in a row hardly moving, just looking at the ceiling. Patient denies any history of manic episodes; denies AVH; denies alcohol or drug use; patient has passive SI, wishing he were but no intent or plans and no history of attempts. Patient recently at [facility] respite and was started on venlafaxine which he has taken daily and agrees to increase now. Impression: Patient has severe anxiety; will need to explore further and determine if patient has OCD. History of trauma and PTSD symptoms contributory. No obvious psychotic symptoms Hospital course: 12/03 remains very anxious and somatically pre-occupied. c/o irritable edge and asks for Tegretol. Remote possibility that pt could have some mixed manic symptoms but since does not want Trileptal will start Tegretol (which he asks for by name; says Trileptal may have made anxiety worse-though this is thought is quite possibly just product of anxiety). Gabapentin prn for anxiety. Headache is mostly all resolved Head CT unremarkable 12/05 remains very anxious, somatically preoccupied; will increase venlafaxine; will get labs for Tegretol level before increasing. Patient says he has history of intermittent explosive disorder and can get very angry where he breaks and throws things. 12/06 thinks maybe a little less anxious; did get angry but stated control; continue current treatment plan 12/07 still very anxious; will check Tegretol level tomorrow and consider increasing Medical consult called to assess right inner ear pain Plan: CV Q 15 minute checks? Will add Ativan 0.5 mg b.i.d. p.r.n. for severe anxiety trying to avoid benzos however patient does not have substance abuse history and has panic attacks Continue Tegretol XR 200 mg b.i.d.; since patient reports agitated, irritable edge to his anxiety will replace Trileptal CHECK: Tegretol level; consider increasing continue venlafaxine ER 112.5 mg Continue gabapentin 300 mg t.i.d.; switch to scheduled over the weekend Continue clonidine 0.2 mg q.4h p.r.n. for anxiety (bp stable) and 0.1 mg scheduled q.h.s. for trouble sleeping DC Zyprexa patient feels combination of sedating into agitating DC Trileptal Patient educated on: medication risk/benefits Informed Consent: understands Reason for continued inpatient stay Substantial Risk for: harm to self and rapid decompensation Time Spent With Patient Time: Total time managing care of this patient today ____ minutes.
[2022-12-09] MEDS: Nicotine 21 MG PATCH.TD24 TRANSDERMA (10:34)
[2022-12-09] MEDS: cloNIDine HCL 0.2 MG TABLET PO ×2 (10:34→16:56)
[2022-12-09] MEDS: hydrOXYzine HCL 25 MG TABLET PO ×3 (10:34→21:16)
[2022-12-09] MEDS: Nicotine Polacrilex 2 MG GUM 4 MG BUCCAL ×4 (10:35→19:01)
[2022-12-09 17:19] VITALS: BP 135/71; PULSE 98; RESP 18; TEMP 36.2; O2SAT 97
[2022-12-09] MEDS: traZODone HCL 50 MG TABLET PO (21:15)
[2022-12-09] MEDS: cloNIDine HCL 0.1 MG TABLET PO (21:15)
[2022-12-10 09:00] VITALS: BP 120/71; PULSE 90; RESP 18; TEMP 36.6; O2SAT 99
[2022-12-10] MEDS: Venlafaxine HCl ER 75 MG CAP.ER.24H PO (09:50)
[2022-12-10] MEDS: carBAMazepine ER 200 MG TAB.ER.12H PO ×2 (09:50→20:46)
[2022-12-10] MEDS: Gabapentin 300 MG CAPSULE PO ×3 (09:50→20:46)
[2022-12-10] MEDS: cloNIDine HCL 0.2 MG TABLET PO ×3 (10:07→18:21)
[2022-12-10] MEDS: hydrOXYzine HCL 25 MG TABLET PO ×2 (10:07→18:21)
[2022-12-10] MEDS: Nicotine 21 MG PATCH.TD24 TRANSDERMA (10:07)
[2022-12-10] MEDS: Nicotine Polacrilex 2 MG GUM 4 MG BUCCAL ×4 (10:07→20:52)
--- NOTE | 2022-12-10 10:38 | PC.NURSE ---
Pt refused Risperidone stating it makes the anxiety worse
--- NOTE | 2022-12-10 10:43 | HO.PSYCHPN ---
Subjective Subjective Date of Service: 12/10/22 Reason For Visit: Post Traumatic Stress Disorder Interim History: met with patient; discussed with team pt reports tough weekend saying his anxiety was very high, that he felt his face had pins and needles... and was having both hot and cold flashes...pt said he thinks risperdal made it worse and does not want it. Pt felt that Propranolol today helped and he agrees to increase Effexor to 150mg Mental Status Exam Mental Status Exam Narrative: Pt is alert and oriented; behavior is cooperative, more friendly, still anxious; dressed in combo of hospital attire and casual cloths; clean shaven and adequate hygiene; mood is described as anxious and affect congruent, but overall a little more calm than admission; eye contact appropriate; Speech is normal rate, volume and prosody and not pressured; some psychomotor retardation present; thought process is goal directed; Thought content is preoccupied with anxiety symptoms and somatic experiences; otherwise pertinent to relevant topics and without any delusional content, paranoid ideations or grandiosity; no SI; no HI. There is no evidence of perceptual disturbance. Patients insight and judgment impaired Diagnostics Vital Signs (24Hr): Vital Signs - 24 hr 12/09/22 17:19 12/10/22 09:00 Temperature 97.1 F 97.8 F Pulse Rate 98 90 Respiratory Rate 18 18 Blood Pressure 135/71 120/71 Pulse Oximetry 97 99 Oxygen Delivery Method Room Air Room Air BMI result Body Mass Index 28.2 Labs 12/08/22 07:32 Labs: Laboratory Results - last 48 hr 12/08/22 07:32 Carbamazepine 5.8 Imaging Radiology Impressions: ITS Impressions Head CT 12/03/22 09:09 IMPRESSION: No acute intracranial pathology. Medications Medications Current Medications Acetaminophen (Acetaminophen 325 Mg Tablet) 650 mg PO Q6H PRN PRN Reason: Headache/Pain Mild Scale (1-3) Last Admin: 12/08/22 09:51 Dose: 650 mg Al Hydroxide/Mg Hydroxide (Magnesium Hydrox/Alum Hydrox 30 Ml Oral.Susp) 30 ml PO Q6H PRN PRN Reason: Heartburn/Nausea Last Admin: 12/08/22 21:42 Dose: 30 ml Benzocaine (Throat Lozenge, Medicated Lozenge) 1 lozenge MUCOUS MEM Q2H PRN PRN Reason: Sore Throat Last Admin: 12/07/22 23:21 Dose: 1 lozenge Carbamazepine (Carbamazepine Er 200 Mg Tab.Er.12h) 200 mg PO BID JAE Last Admin: 12/10/22 09:50 Dose: 200 mg Clonidine HCl (Clonidine Hcl 0.1 Mg Tablet) 0.1 mg PO BEDTIME JAE; Protocol Last Admin: 12/09/22 21:15 Dose: 0.1 mg Clonidine HCl (Clonidine Hcl 0.2 Mg Tablet) 0.2 mg PO Q4H PRN; Protocol PRN Reason: anxiety Last Admin: 12/10/22 10:07 Dose: 0.2 mg Gabapentin (Gabapentin 300 Mg Capsule) 300 mg PO TID JAE Last Admin: 12/10/22 09:50 Dose: 300 mg Hydroxyzine HCl (Hydroxyzine Hcl 25 Mg Tablet) 25 mg PO Q6H PRN PRN Reason: Anxiety Last Admin: 12/10/22 10:07 Dose: 25 mg Magnesium Hydroxide (Milk Of Magnesia 30 Ml Oral.Susp) 30 ml PO DAILY PRN PRN Reason: Constipation Nicotine (Nicotine 21 Mg Patch.Td24) 21 mg TRANSDERMA DAILY PRN PRN Reason: smoking cessation Last Admin: 12/10/22 10:07 Dose: 21 mg Nicotine Polacrilex (Nicotine Polacrilex 2 Mg Gum) 4 mg BUCCAL Q2H PRN PRN Reason: nicotine cravings Last Admin: 12/10/22 10:07 Dose: 4 mg Risperidone (Risperidone 0.25 Mg Tablet) 0.25 mg PO BID JAE Last Admin: 12/10/22 10:08 Dose: Not Given Risperidone (Risperidone 0.5 Mg Tablet) 0.5 mg PO Q4H PRN PRN Reason: Anxiety Last Admin: 12/09/22 12:08 Dose: 0.5 mg Trazodone HCl (Trazodone Hcl 50 Mg Tablet) 50 mg PO BEDTIME MRX1 PRN PRN Reason: Insomnia Last Admin: 12/09/22 21:15 Dose: 50 mg Venlafaxine HCl (Venlafaxine Hcl Er 75 Mg Cap.Er.24h) 75 mg PO DAILY JAE Last Admin: 12/10/22 09:50 Dose: 75 mg Venlafaxine HCl (Venlafaxine Hcl Er 37.5 Mg Cap.Er.24h) 37.5 mg PO DAILY JAE Last Admin: 12/10/22 09:50 Dose: 37.5 mg Allergies Allergies Allergy/AdvReac Type Severity Reaction Status Date / Time amoxicillin Allergy Severe Rash Verified 11/28/22 13:16 cephalexin [From Keflex] Allergy Severe Rash Verified 11/28/22 13:16 Assessment & Plan Assessment & Plan (1) SAWYER (generalized anxiety disorder): Status: Acute Code(s): F41.1 - Generalized anxiety disorder (2) OCD (obsessive compulsive disorder): Status: Suspected Code(s): F42.9 - Obsessive-compulsive disorder, unspecified Assessment and Plan: 12/08 dced ativan trial low dose risperidone 12/09 added risperidone 0.5mg prn yesterday that helped may want to inc standing dose from 0.25mg bid = (3) PTSD (post-traumatic stress disorder): Status: Acute Code(s): F43.10 - Post-traumatic stress disorder, unspecified (4) MDD (major depressive disorder), recurrent severe, without psychosis: Status: Acute Code(s): F33.2 - Major depressive disorder, recurrent severe without psychotic features Plan Patient is a 37-year-old male with history of MDD, PTSD and severe anxiety who presents for worsening anxiety. Patient lives in a tent in the [facility] and has for 3 years. He reports that his anxiety has been worsening over the past few months but especially so the past few weeks. He is not sure why but says that he feels terrified of many different things, a small sound will send him into a panic where he gets sweaty, starts to hyperventilate, the muscles tense, and he starts to feel confused. Patient reports other associated neurological complaints such as being dizzy or having trouble walking but all in the context of panic/anxiety. Patient is clearly very anxious during interview and [place] about very little else. Patient says his anxiety is all the time and that recently he does lied in his tent for 3 days in a row hardly moving, just looking at the ceiling. Patient denies any history of manic episodes; denies AVH; denies alcohol or drug use; patient has passive SI, wishing he were but no intent or plans and no history of attempts. Patient recently at [facility] respite and was started on venlafaxine which he has taken daily and agrees to increase now. Impression: Patient has severe anxiety; will need to explore further and determine if patient has OCD. History of trauma and PTSD symptoms contributory. No obvious psychotic symptoms Hospital course: 12/03 remains very anxious and somatically pre-occupied. c/o irritable edge and asks for Tegretol. Remote possibility that pt could have some mixed manic symptoms but since does not want Trileptal will start Tegretol (which he asks for by name; says Trileptal may have made anxiety worse-though this is thought is quite possibly just product of anxiety). Gabapentin prn for anxiety. Headache is mostly all resolved Head CT unremarkable 12/05 remains very anxious, somatically preoccupied; will increase venlafaxine; will get labs for Tegretol level before increasing. Patient says he has history of intermittent explosive disorder and can get very angry where he breaks and throws things. 12/06 thinks maybe a little less anxious; did get angry but stated control; continue current treatment plan 12/07 still very anxious; will check Tegretol level tomorrow and consider increasing Medical consult called to assess right inner ear pain 12/10 still very debilitated by anxiety; increasing effexor to 150mg and starting propranolol; dc risperdal, feels makes worse Plan: CV Q 15 minute checks? Ativan 0.5 mg b.i.d. p.r.n. for severe anxiety trying to avoid benzos however patient does not have substance abuse history and has panic attacks Continue Tegretol XR 200 mg b.i.d.; since patient reports agitated, irritable edge to his anxiety will replace Trileptal CHECK: Tegretol level; consider increasing INCREASED to venlafaxine ER m150mg STARTED Propranolol 10mg TID Continue gabapentin 300 mg t.i.d.; switch to scheduled over the weekend Continue clonidine 0.2 mg q.4h p.r.n. for anxiety (bp stable) and 0.1 mg scheduled q.h.s. for trouble sleeping DC Zyprexa patient feels combination of sedating into agitating DC Trileptal dc'd risperdal Patient educated on: diagnosis and medication risk/benefits Informed Consent: understands and further education needed Reason for continued inpatient stay Substantial Risk for: inability to function Time Spent With Patient Time: Total time managing care of this patient today ____ minutes.
[2022-12-10] MEDS: Propranolol HCL 10 MG TABLET PO ×2 (11:19→14:15)
[2022-12-10] MEDS: Acetaminophen 325 MG TABLET 650 MG PO (13:20)
[2022-12-10 14:10] VITALS: BP 130/66; PULSE 94
[2022-12-10] MEDS: cloNIDine HCL 0.1 MG TABLET PO (20:45)
[2022-12-10] MEDS: traZODone HCL 50 MG TABLET PO (20:52)
[2022-12-11 08:50] VITALS: BP 129/71; PULSE 84; RESP 18; TEMP 35.8; O2SAT 100
[2022-12-11] MEDS: Propranolol HCL 10 MG TABLET PO (08:58)
[2022-12-11] MEDS: Venlafaxine HCl ER 150 MG CAP.ER.24H PO (08:59)
[2022-12-11] MEDS: hydrOXYzine HCL 25 MG TABLET PO ×3 (08:59→23:00)
[2022-12-11] MEDS: Nicotine Polacrilex 2 MG GUM 4 MG BUCCAL ×5 (08:59→23:01)
[2022-12-11] MEDS: carBAMazepine ER 200 MG TAB.ER.12H PO ×2 (08:59→23:01)
[2022-12-11] MEDS: Gabapentin 300 MG CAPSULE PO ×3 (08:59→23:01)
[2022-12-11] MEDS: Nicotine 21 MG PATCH.TD24 TRANSDERMA (09:00)
--- NOTE | 2022-12-11 09:53 | HO.PSYCHPN ---
Subjective Subjective Date of Service: 12/11/22 Reason For Visit: Post Traumatic Stress Disorder Interim History: Met with patient; discussed with team; says very anxious 03/12; he c/o pins needles in arms and head; upper back warm; upper thighs in cold sweats; arms look red.. however, pt did say that when gets up and is more active in the mil[place], he feels better; with enouragement, pt decided to go into kitchen and socialize with peers. Discussed meds and how things are a little better since Effexor started so agreed to continue; agreed to increase Propranolol to long acting. Propranolol LA Mental Status Exam Mental Status Exam Narrative: Pt is alert and oriented; behavior is cooperative, more friendly, still anxious; dressed in combo of hospital attire and casual cloths; clean shaven and adequate hygiene; mood is described as anxious and affect congruent, but overall a little more calm than admission; eye contact appropriate; Speech is normal rate, volume and prosody and not pressured; some psychomotor retardation present; thought process is goal directed; Thought content is preoccupied with anxiety symptoms and somatic experiences; otherwise pertinent to relevant topics and without any delusional content, paranoid ideations or grandiosity; no SI; no HI. There is no evidence of perceptual disturbance. Patients insight and judgment impaired Diagnostics Vital Signs (24Hr): Vital Signs - 24 hr 12/10/22 14:10 12/11/22 08:50 Temperature 96.4 F L Pulse Rate 94 84 Respiratory Rate 18 Blood Pressure 130/66 129/71 Pulse Oximetry 100 Oxygen Delivery Method Room Air BMI result Body Mass Index 28.2 Labs 12/08/22 07:32 Imaging Radiology Impressions: ITS Impressions Head CT 12/03/22 09:09 IMPRESSION: No acute intracranial pathology. Medications Medications Current Medications Acetaminophen (Acetaminophen 325 Mg Tablet) 650 mg PO Q6H PRN PRN Reason: Headache/Pain Mild Scale (1-3) Last Admin: 12/10/22 13:20 Dose: 650 mg Al Hydroxide/Mg Hydroxide (Magnesium Hydrox/Alum Hydrox 30 Ml Oral.Susp) 30 ml PO Q6H PRN PRN Reason: Heartburn/Nausea Last Admin: 12/08/22 21:42 Dose: 30 ml Benzocaine (Throat Lozenge, Medicated Lozenge) 1 lozenge MUCOUS MEM Q2H PRN PRN Reason: Sore Throat Last Admin: 12/07/22 23:21 Dose: 1 lozenge Carbamazepine (Carbamazepine Er 200 Mg Tab.Er.12h) 200 mg PO BID JAE Last Admin: 12/11/22 08:59 Dose: 200 mg Clonidine HCl (Clonidine Hcl 0.1 Mg Tablet) 0.1 mg PO BEDTIME JAE; Protocol Last Admin: 12/10/22 20:45 Dose: 0.1 mg Clonidine HCl (Clonidine Hcl 0.2 Mg Tablet) 0.2 mg PO Q4H PRN; Protocol PRN Reason: anxiety Last Admin: 12/10/22 18:21 Dose: 0.2 mg Gabapentin (Gabapentin 300 Mg Capsule) 300 mg PO TID JAE Last Admin: 12/11/22 08:59 Dose: 300 mg Hydroxyzine HCl (Hydroxyzine Hcl 25 Mg Tablet) 25 mg PO Q6H PRN PRN Reason: Anxiety Last Admin: 12/11/22 08:59 Dose: 25 mg Magnesium Hydroxide (Milk Of Magnesia 30 Ml Oral.Susp) 30 ml PO DAILY PRN PRN Reason: Constipation Nicotine (Nicotine 21 Mg Patch.Td24) 21 mg TRANSDERMA DAILY PRN PRN Reason: smoking cessation Last Admin: 12/11/22 09:00 Dose: 21 mg Nicotine Polacrilex (Nicotine Polacrilex 2 Mg Gum) 4 mg BUCCAL Q2H PRN PRN Reason: nicotine cravings Last Admin: 12/11/22 08:59 Dose: 4 mg Propranolol HCl (Propranolol Hcl 10 Mg Tablet) 10 mg PO TID [facility]; Protocol Last Admin: 12/11/22 08:58 Dose: 10 mg Risperidone (Risperidone 0.5 Mg Tablet) 0.5 mg PO Q4H PRN PRN Reason: Anxiety Last Admin: 12/09/22 12:08 Dose: 0.5 mg Trazodone HCl (Trazodone Hcl 50 Mg Tablet) 50 mg PO BEDTIME MRX1 PRN PRN Reason: Insomnia Last Admin: 12/10/22 20:52 Dose: 50 mg Venlafaxine HCl (Venlafaxine Hcl Er 150 Mg Cap.Er.24h) 150 mg PO DAILY JAE Last Admin: 12/11/22 08:59 Dose: 150 mg Allergies Allergies Allergy/AdvReac Type Severity Reaction Status Date / Time amoxicillin Allergy Severe Rash Verified 06/28/23 13:16 cephalexin [From Keflex] Allergy Severe Rash Verified 11/28/22 13:16 Assessment & Plan Assessment & Plan (1) SAWYER (generalized anxiety disorder): Status: Acute Code(s): F41.1 - Generalized anxiety disorder (2) OCD (obsessive compulsive disorder): Status: Suspected Code(s): F42.9 - Obsessive-compulsive disorder, unspecified Assessment and Plan: 12/08 dced ativan trial low dose risperidone 12/09 added risperidone 0.5mg prn yesterday that helped may want to inc standing dose from 0.25mg bid = (3) PTSD (post-traumatic stress disorder): Status: Acute Code(s): F43.10 - Post-traumatic stress disorder, unspecified (4) MDD (major depressive disorder), recurrent severe, without psychosis: Status: Acute Code(s): F33.2 - Major depressive disorder, recurrent severe without psychotic features Plan Patient is a 37-year-old male with history of MDD, PTSD and severe anxiety who presents for worsening anxiety. Patient lives in a tent in the [facility] and has for 3 years. He reports that his anxiety has been worsening over the past few months but especially so the past few weeks. He is not sure why but says that he feels terrified of many different things, a small sound will send him into a panic where he gets sweaty, starts to hyperventilate, the muscles tense, and he starts to feel confused. Patient reports other associated neurological complaints such as being dizzy or having trouble walking but all in the context of panic/anxiety. Patient is clearly very anxious during interview and [place] about very little else. Patient says his anxiety is all the time and that recently he does lied in his tent for 3 days in a row hardly moving, just looking at the ceiling. Patient denies any history of manic episodes; denies AVH; denies alcohol or drug use; patient has passive SI, wishing he were but no intent or plans and no history of attempts. Patient recently at [facility] respite and was started on venlafaxine which he has taken daily and agrees to increase now. Impression: Patient has severe anxiety; will need to explore further and determine if patient has OCD. History of trauma and PTSD symptoms contributory. No obvious psychotic symptoms Hospital course: 12/03 remains very anxious and somatically pre-occupied. c/o irritable edge and asks for Tegretol. Remote possibility that pt could have some mixed manic symptoms but since does not want Trileptal will start Tegretol (which he asks for by name; says Trileptal may have made anxiety worse-though this is thought is quite possibly just product of anxiety). Gabapentin prn for anxiety. Headache is mostly all resolved Head CT unremarkable 12/05 remains very anxious, somatically preoccupied; will increase venlafaxine; will get labs for Tegretol level before increasing. Patient says he has history of intermittent explosive disorder and can get very angry where he breaks and throws things. 12/06 thinks maybe a little less anxious; did get angry but stated control; continue current treatment plan 12/07 still very anxious; will check Tegretol level tomorrow and consider increasing Medical consult called to assess right inner ear pain 12/10 still very debilitated by anxiety; increasing effexor to 150mg and starting propranolol; dc risperdal, feels makes worse 12/11 very anxious; preoccupied with various somatic complaints; change to long acting propranolol which he said was helping; continue on Effexor for now Plan: CV Q 15 minute checks? Ativan 0.5 mg b.i.d. p.r.n. for severe anxiety trying to avoid benzos however patient does not have substance abuse history and has panic attacks Continue Tegretol XR 200 mg b.i.d.; since patient reports agitated, irritable edge to his anxiety will replace Trileptal : Tegretol level: WNL Continue venlafaxine ER m150mg SWITCH to Propranolol LA 60mg daily Continue gabapentin 300 mg t.i.d.; switch to scheduled over the weekend Continue clonidine 0.2 mg q.4h p.r.n. for anxiety (bp stable) and 0.1 mg scheduled q.h.s. for trouble sleeping DC Zyprexa patient feels combination of sedating into agitating DC Trileptal dc'd risperdal Patient educated on: diagnosis, medication risk/benefits and therapeutic strategies Informed Consent: understands Reason for continued inpatient stay Substantial Risk for: inability to function Time Spent With Patient Time: Total time managing care of this patient today ____ minutes.
[2022-12-11 11:32] VITALS: BP 129/73; PULSE 94
[2022-12-11] MEDS: Acetaminophen 325 MG TABLET 650 MG PO (11:34)
[2022-12-11] MEDS: cloNIDine HCL 0.2 MG TABLET PO ×2 (11:34→18:27)
[2022-12-11 13:50] VITALS: BP 126/79; PULSE 79
[2022-12-11] MEDS: Propranolol HCL LA 60 MG CAP.SA.24H PO (13:55)
[2022-12-11 18:00] VITALS: BP 128/68; PULSE 86; TEMP 36.2; O2SAT 97
[2022-12-11] MEDS: cloNIDine HCL 0.1 MG TABLET PO (23:01)
[2022-12-11] MEDS: traZODone HCL 50 MG TABLET PO (23:01)
[2022-12-12] MEDS: traZODone HCL 50 MG TABLET PO ×2 (02:29→20:16)
[2022-12-12 03:27] VITALS: BP 120/79
[2022-12-12] MEDS: cloNIDine HCL 0.2 MG TABLET PO ×3 (03:29→14:32)
[2022-12-12 06:00] VITALS: BP 111/69; PULSE 65; RESP 18; TEMP 36.2; O2SAT 98
[2022-12-12] MEDS: Propranolol HCL LA 60 MG CAP.SA.24H PO (08:39)
[2022-12-12] MEDS: carBAMazepine ER 200 MG TAB.ER.12H PO ×2 (08:40→20:17)
[2022-12-12] MEDS: Gabapentin 300 MG CAPSULE PO ×3 (08:40→20:16)
[2022-12-12] MEDS: Venlafaxine HCl ER 150 MG CAP.ER.24H PO (08:40)
[2022-12-12] MEDS: Nicotine 21 MG PATCH.TD24 TRANSDERMA (08:48)
[2022-12-12] MEDS: hydrOXYzine HCL 25 MG TABLET PO ×2 (08:48→20:27)
[2022-12-12] MEDS: Nicotine Polacrilex 2 MG GUM 4 MG BUCCAL ×3 (08:48→20:26)
--- NOTE | 2022-12-12 10:51 | HO.PSYCHPN ---
Subjective Subjective Date of Service: 12/12/22 Reason For Visit: Post Traumatic Stress Disorder Interim History: met with patient; discussed with team pt says he has all right and even says he realizes his anxiety manifests itself in physical ways... Patient acknowledges that this perspective is sign of some improvement. He says he does feel little bit better. This morning he was sad and did not go to a group but says he is trying to push himself through his anxiety. Still has numerous unrelated, unconnected somatic complaints such as tingling in his arm, momentary flashes where his back is hot but his feet are cold... Patient agrees to continue titration of venlafaxine; he also asks for increased propranolol Die Cutter Apprentice talked about patient's history and he enjoys biology in the sinuses as well as mathematics and took some college courses. 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 Mental Status Exam Mental Status Exam Narrative: Pt is alert and oriented; behavior is cooperative, more friendly, still anxious; dressed in combo of hospital attire and casual cloths; clean shaven and adequate hygiene; mood is described as alright and affect congruent, but overall a little more calm than admission; eye contact appropriate; Speech is normal rate, volume and prosody and not pressured; some psychomotor retardation present; thought process is goal directed; Thought content is preoccupied with anxiety symptoms and somatic experiences; otherwise pertinent to relevant topics and without any delusional content, paranoid ideations or grandiosity; no SI; no HI. There is no evidence of perceptual disturbance. Patients insight and judgment impaired Diagnostics Vital Signs (24Hr): Vital Signs - 24 hr 12/11/22 11:32 12/11/22 13:50 12/11/22 18:00 Temperature 97.2 F Pulse Rate 94 79 86 Respiratory Rate Blood Pressure 129/73 126/79 128/68 Pulse Oximetry 97 Oxygen Delivery Method Room Air 12/12/22 03:27 12/12/22 06:00 Temperature 97.1 F Pulse Rate 65 Respiratory Rate 18 Blood Pressure 120/79 111/69 Pulse Oximetry 98 Oxygen Delivery Method Room Air BMI result Body Mass Index 28.2 Labs 12/08/22 07:32 Imaging Radiology Impressions: ITS Impressions Head CT 12/03/22 09:09 IMPRESSION: No acute intracranial pathology. Medications Medications Current Medications Acetaminophen (Acetaminophen 325 Mg Tablet) 650 mg PO Q6H PRN PRN Reason: Headache/Pain Mild Scale (1-3) Last Admin: 12/11/22 11:34 Dose: 650 mg Al Hydroxide/Mg Hydroxide (Magnesium Hydrox/Alum Hydrox 30 Ml Oral.Susp) 30 ml PO Q6H PRN PRN Reason: Heartburn/Nausea Last Admin: 12/08/22 21:42 Dose: 30 ml Benzocaine (Throat Lozenge, Medicated Lozenge) 1 lozenge MUCOUS MEM Q2H PRN PRN Reason: Sore Throat Last Admin: 12/07/22 23:21 Dose: 1 lozenge Carbamazepine (Carbamazepine Er 200 Mg Tab.Er.12h) 200 mg PO BID JAE Last Admin: 12/12/22 08:40 Dose: 200 mg Clonidine HCl (Clonidine Hcl 0.1 Mg Tablet) 0.1 mg PO BEDTIME JAE; Protocol Last Admin: 12/11/22 23:01 Dose: 0.1 mg Clonidine HCl (Clonidine Hcl 0.2 Mg Tablet) 0.2 mg PO Q4H PRN; Protocol PRN Reason: anxiety Last Admin: 12/12/22 08:49 Dose: 0.2 mg Gabapentin (Gabapentin 300 Mg Capsule) 300 mg PO TID JAE Last Admin: 12/12/22 08:40 Dose: 300 mg Hydroxyzine HCl (Hydroxyzine Hcl 25 Mg Tablet) 25 mg PO Q6H PRN PRN Reason: Anxiety Last Admin: 12/12/22 08:48 Dose: 25 mg Magnesium Hydroxide (Milk Of Magnesia 30 Ml Oral.Susp) 30 ml PO DAILY PRN PRN Reason: Constipation Nicotine (Nicotine 21 Mg Patch.Td24) 21 mg TRANSDERMA DAILY PRN PRN Reason: smoking cessation Last Admin: 12/12/22 08:48 Dose: 21 mg Nicotine Polacrilex (Nicotine Polacrilex 2 Mg Gum) 4 mg BUCCAL Q2H PRN PRN Reason: nicotine cravings Last Admin: 12/12/22 08:48 Dose: 4 mg Propranolol HCl (Propranolol Hcl La 60 Mg Cap.Sa.24h) 60 mg PO DAILY JAE; Protocol Last Admin: 12/12/22 08:39 Dose: 60 mg Risperidone (Risperidone 0.5 Mg Tablet) 0.5 mg PO Q4H PRN PRN Reason: Anxiety Last Admin: 12/09/22 12:08 Dose: 0.5 mg Trazodone HCl (Trazodone Hcl 50 Mg Tablet) 50 mg PO BEDTIME MRX1 PRN PRN Reason: Insomnia Last Admin: 12/12/22 02:29 Dose: 50 mg Venlafaxine HCl (Venlafaxine Hcl Er 150 Mg Cap.Er.24h) 150 mg PO DAILY JAE Last Admin: 12/12/22 08:40 Dose: 150 mg Allergies Allergies Allergy/AdvReac Type Severity Reaction Status Date / Time amoxicillin Allergy Severe Rash Verified 11/28/22 13:16 cephalexin [From Keflex] Allergy Severe Rash Verified 11/28/22 13:16 Assessment & Plan Assessment & Plan (1) SAWYER (generalized anxiety disorder): Status: Acute Code(s): F41.1 - Generalized anxiety disorder (2) OCD (obsessive compulsive disorder): Status: Suspected Code(s): F42.9 - Obsessive-compulsive disorder, unspecified Assessment and Plan: 12/08 dced ativan trial low dose risperidone 12/09 added risperidone 0.5mg prn yesterday that helped may want to inc standing dose from 0.25mg bid = (3) PTSD (post-traumatic stress disorder): Status: Acute Code(s): F43.10 - Post-traumatic stress disorder, unspecified (4) MDD (major depressive disorder), recurrent severe, without psychosis: Status: Acute Code(s): F33.2 - Major depressive disorder, recurrent severe without psychotic features Plan Patient is a 37-year-old male with history of MDD, PTSD and severe anxiety who presents for worsening anxiety. Patient lives in a [facility] and has for 3 years. He reports that his anxiety has been worsening over the past few months but especially so the past few weeks. He is not sure why but says that he feels terrified of many different things, a small sound will send him into a panic where he gets sweaty, starts to hyperventilate, the muscles tense, and he starts to feel confused. Patient reports other associated neurological complaints such as being dizzy or having trouble walking but all in the context of panic/anxiety. Patient is clearly very anxious during interview and [place] about very little else. Patient says his anxiety is all the time and that recently he does lied in his tent for 3 days in a row hardly moving, just looking at the ceiling. Patient denies any history of manic episodes; denies AVH; denies alcohol or drug use; patient has passive SI, wishing he were but no intent or plans and no history of attempts. Patient recently at [facility] respite and was started on venlafaxine which he has taken daily and agrees to increase now. Impression: Patient has severe anxiety; will need to explore further and determine if patient has OCD. History of trauma and PTSD symptoms contributory. No obvious psychotic symptoms Hospital course: 12/03 remains very anxious and somatically pre-occupied. c/o irritable edge and asks for Tegretol. Remote possibility that pt could have some mixed manic symptoms but since does not want Trileptal will start Tegretol (which he asks for by name; says Trileptal may have made anxiety worse-though this is thought is quite possibly just product of anxiety). Gabapentin prn for anxiety. Headache is mostly all resolved Head CT unremarkable 12/05 remains very anxious, somatically preoccupied; will increase venlafaxine; will get labs for Tegretol level before increasing. Patient says he has history of intermittent explosive disorder and can get very angry where he breaks and throws things. 12/06 thinks maybe a little less anxious; did get angry but stated control; continue current treatment plan 12/07 still very anxious; will check Tegretol level tomorrow and consider increasing Medical consult called to assess right inner ear pain 12/10 still very debilitated by anxiety; increasing effexor to 150mg and starting propranolol; olivia brown, feels makes worse 12/11 very anxious; preoccupied with various somatic complaints; change to long acting propranolol which he said was helping; continue on Effexor for now 12/12 some improved perspective is patient himself said that his anxiety seems to manifest itself in physical ways. Asks for additional propranolol to which typewriter aligner agrees as blood pressure/HR seem to be able to tolerate; will likely increase Effexor soon Plan: CV Q 15 minute checks? Ativan 0.5 mg b.i.d. p.r.n. for severe anxiety trying to avoid benzos however patient does not have substance abuse history and has panic attacks Continue Tegretol XR 200 mg b.i.d.; since patient reports agitated, irritable edge to his anxiety will replace Trileptal : Tegretol level: WNL Continue venlafaxine ER m150mg Added propranolol immediate release 10 mg q.i.d. Continue Propranolol LA 60mg daily Continue gabapentin 300 mg t.i.d.; switch to scheduled over the weekend Continue clonidine 0.2 mg q.4h p.r.n. for anxiety (bp stable) and 0.1 mg scheduled q.h.s. for trouble sleeping DC Zyprexa patient feels combination of sedating into agitating DC Trileptal dc'd risperdal Patient educated on: diagnosis and medication risk/benefits Informed Consent: understands and further education needed Reason for continued inpatient stay Substantial Risk for: inability to function Time Spent With Patient Time: Total time managing care of this patient today ____ minutes.
[2022-12-12] MEDS: Propranolol HCL 10 MG TABLET PO ×2 (14:32→20:27)
[2022-12-12 20:15] VITALS: BP 120/59; PULSE 80; TEMP 36
[2022-12-12] MEDS: Acetaminophen 325 MG TABLET 650 MG PO (20:16)
[2022-12-12] MEDS: cloNIDine HCL 0.1 MG TABLET PO (20:17)
[2022-12-13 06:00] VITALS: BP 121/78; PULSE 68; RESP 18; TEMP 36.3; O2SAT 100
[2022-12-13 07:00] VITALS: BMI 28.8
[2022-12-13] MEDS: Propranolol HCL LA 60 MG CAP.SA.24H PO (08:29)
[2022-12-13] MEDS: Venlafaxine HCl ER 150 MG CAP.ER.24H PO (08:29)
[2022-12-13] MEDS: Gabapentin 300 MG CAPSULE PO ×3 (08:30→19:47)
[2022-12-13] MEDS: carBAMazepine ER 200 MG TAB.ER.12H PO ×2 (08:32→19:47)
[2022-12-13] MEDS: Nicotine Polacrilex 2 MG GUM 4 MG BUCCAL ×4 (09:12→21:52)
[2022-12-13] MEDS: Nicotine 21 MG PATCH.TD24 TRANSDERMA (09:12)
[2022-12-13] MEDS: cloNIDine HCL 0.2 MG TABLET PO ×3 (09:12→21:46)
[2022-12-13] MEDS: hydrOXYzine HCL 25 MG TABLET PO ×2 (09:17→18:00)
[2022-12-13] MEDS: Venlafaxine HCl ER 37.5 MG CAP.ER.24H PO (10:33)
[2022-12-13] MEDS: Hydrocortisone 1 % Cream 28.35 GM TUBE 1 APPL TOPICAL (12:42)
[2022-12-13 14:12] VITALS: BP 145/69; PULSE 85
--- NOTE | 2022-12-13 16:32 | HO.PSYCHPN ---
Subjective Subjective Date of Service: 12/13/22 Reason For Visit: Post Traumatic Stress Disorder Interim History: Met with patient; discussed with team Patient reports having much anxiety today and is very focused somatic sensations, with alternating hot and cold in his feet, tingling on his back, itching and goosebumps that come and go, feeling confused... Agrees to increasing venlafaxine. Patient reported and nursing confirmed small rash left gluteal cleft and agrees to hydrocortisone Mental Status Exam Mental Status Exam Narrative: Pt is alert and oriented; behavior is cooperative, more friendly, still anxious; dressed in combo of hospital attire and casual cloths; clean shaven and adequate hygiene; mood is described as nervous and affect congruent, but overall a little more calm than admission; eye contact appropriate; Speech is normal rate, volume and prosody and not pressured; some psychomotor retardation present; thought process is goal directed; Thought content is preoccupied with anxiety symptoms and somatic experiences; otherwise pertinent to relevant topics and without any delusional content, paranoid ideations or grandiosity; no SI; no HI. There is no evidence of perceptual disturbance. Patients insight and judgment impaired Diagnostics Vital Signs (24Hr): Vital Signs - 24 hr 12/12/22 20:15 12/13/22 06:00 12/13/22 14:12 Temperature 96.8 F 97.3 F Pulse Rate 80 68 85 Respiratory Rate 18 Blood Pressure 120/59 L 121/78 145/69 H Pulse Oximetry 100 Oxygen Delivery Method Room Air BMI result Body Mass Index 28.8 Labs 12/08/22 07:32 Imaging Radiology Impressions: ITS Impressions Head CT 12/03/22 09:09 IMPRESSION: No acute intracranial pathology. Medications Medications Current Medications Acetaminophen (Acetaminophen 325 Mg Tablet) 650 mg PO Q6H PRN PRN Reason: Headache/Pain Mild Scale (1-3) Last Admin: 12/12/22 20:16 Dose: 650 mg Al Hydroxide/Mg Hydroxide (Magnesium Hydrox/Alum Hydrox 30 Ml Oral.Susp) 30 ml PO Q6H PRN PRN Reason: Heartburn/Nausea Last Admin: 12/08/22 21:42 Dose: 30 ml Benzocaine (Throat Lozenge, Medicated Lozenge) 1 lozenge MUCOUS MEM Q2H PRN PRN Reason: Sore Throat Last Admin: 12/07/22 23:21 Dose: 1 lozenge Carbamazepine (Carbamazepine Er 200 Mg Tab.Er.12h) 200 mg PO BID JAE Last Admin: 12/13/22 08:32 Dose: 200 mg Clonidine HCl (Clonidine Hcl 0.1 Mg Tablet) 0.1 mg PO BEDTIME JAE; Protocol Last Admin: 12/12/22 20:17 Dose: 0.1 mg Clonidine HCl (Clonidine Hcl 0.2 Mg Tablet) 0.2 mg PO Q4H PRN; Protocol PRN Reason: anxiety Last Admin: 12/13/22 14:11 Dose: 0.2 mg Gabapentin (Gabapentin 300 Mg Capsule) 300 mg PO TID JAE Last Admin: 12/13/22 14:06 Dose: 300 mg Hydrocortisone (Hydrocortisone 1 % Cream 28.35 Gm Tube) 1 appl TOPICAL BID JAE; Protocol Stop: 12/15/22 23:50 Last Admin: 12/13/22 12:42 Dose: 1 appl Hydroxyzine HCl (Hydroxyzine Hcl 25 Mg Tablet) 25 mg PO Q6H PRN PRN Reason: Anxiety Last Admin: 12/13/22 09:17 Dose: 25 mg Magnesium Hydroxide (Milk Of Magnesia 30 Ml Oral.Susp) 30 ml PO DAILY PRN PRN Reason: Constipation Nicotine (Nicotine 21 Mg Patch.Td24) 21 mg TRANSDERMA DAILY PRN PRN Reason: smoking cessation Last Admin: 12/13/22 09:12 Dose: 21 mg Nicotine Polacrilex (Nicotine Polacrilex 2 Mg Gum) 4 mg BUCCAL Q2H PRN PRN Reason: nicotine cravings Last Admin: 12/13/22 09:12 Dose: 4 mg Propranolol HCl (Propranolol Hcl La 60 Mg Cap.Sa.24h) 60 mg PO DAILY JAE; Protocol Last Admin: 12/13/22 08:29 Dose: 60 mg Propranolol HCl (Propranolol Hcl 10 Mg Tablet) 10 mg PO QID PRN; Protocol PRN Reason: anxiety Last Admin: 12/12/22 20:27 Dose: 10 mg Trazodone HCl (Trazodone Hcl 50 Mg Tablet) 50 mg PO BEDTIME MRX1 PRN PRN Reason: Insomnia Last Admin: 12/12/22 20:16 Dose: 50 mg Venlafaxine HCl (Venlafaxine Hcl Er 150 Mg Cap.Er.24h) 150 mg PO DAILY JAE Last Admin: 12/13/22 08:29 Dose: 150 mg Venlafaxine HCl (Venlafaxine Hcl Er 37.5 Mg Cap.Er.24h) 37.5 mg PO DAILY JAE Allergies Allergies Allergy/AdvReac Type Severity Reaction Status Date / Time amoxicillin Allergy Severe Rash Verified 11/28/22 13:16 cephalexin [From Keflex] Allergy Severe Rash Verified 11/28/22 13:16 Assessment & Plan Assessment & Plan (1) SAWYER (generalized anxiety disorder): Status: Acute Code(s): F41.1 - Generalized anxiety disorder (2) OCD (obsessive compulsive disorder): Status: Suspected Code(s): F42.9 - Obsessive-compulsive disorder, unspecified Assessment and Plan: 12/08 dced ativan trial low dose risperidone 12/09 added risperidone 0.5mg prn yesterday that helped may want to inc standing dose from 0.25mg bid = (3) PTSD (post-traumatic stress disorder): Status: Acute Code(s): F43.10 - Post-traumatic stress disorder, unspecified (4) MDD (major depressive disorder), recurrent severe, without psychosis: Status: Acute Code(s): F33.2 - Major depressive disorder, recurrent severe without psychotic features Plan Patient is a 37-year-old male with history of MDD, PTSD and severe anxiety who presents for worsening anxiety. Patient lives in a tent in the [facility] and has for 3 years. He reports that his anxiety has been worsening over the past few months but especially so the past few weeks. He is not sure why but says that he feels terrified of many different things, a small sound will send him into a panic where he gets sweaty, starts to hyperventilate, the muscles tense, and he starts to feel confused. Patient reports other associated neurological complaints such as being dizzy or having trouble walking but all in the context of panic/anxiety. Patient is clearly very anxious during interview and [place] about very little else. Patient says his anxiety is all the time and that recently he does lied in his tent for 3 days in a row hardly moving, just looking at the ceiling. Patient denies any history of manic episodes; denies AVH; denies alcohol or drug use; patient has passive SI, wishing he were but no intent or plans and no history of attempts. Patient recently at [facility] respite and was started on venlafaxine which he has taken daily and agrees to increase now. Impression: Patient has severe anxiety; will need to explore further and determine if patient has OCD. History of trauma and PTSD symptoms contributory. No obvious psychotic symptoms Hospital course: 12/03 remains very anxious and somatically pre-occupied. c/o irritable edge and asks for Tegretol. Remote possibility that pt could have some mixed manic symptoms but since does not want Trileptal will start Tegretol (which he asks for by name; says Trileptal may have made anxiety worse-though this is thought is quite possibly just product of anxiety). Gabapentin prn for anxiety. Headache is mostly all resolved Head CT unremarkable 12/05 remains very anxious, somatically preoccupied; will increase venlafaxine; will get labs for Tegretol level before increasing. Patient says he has history of intermittent explosive disorder and can get very angry where he breaks and throws things. 12/06 thinks maybe a little less anxious; did get angry but stated control; continue current treatment plan 12/07 still very anxious; will check Tegretol level tomorrow and consider increasing Medical consult called to assess right inner ear pain 12/10 still very debilitated by anxiety; increasing effexor to 150mg and starting propranolol; dc risperdal, feels makes worse 12/11 very anxious; preoccupied with various somatic complaints; change to long acting propranolol which he said was helping; continue on Effexor for now 12/12 some improved perspective is patient himself said that his anxiety seems to manifest itself in physical ways. 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 as blood pressure/HR seem to be able to tolerate; will likely increase Effexor soon 12/13 regressed back to severe anxiety and hyper focus on somatic experiences; patient makes some progress but then regress is however overall he is doing better than when he came in so will continue with current medication treatment plan and increase venlafaxine tomorrow given OCD component to SAWYER -seems most likely that intermittent puritis is psychogenic, however if persists will consider ruling out organic causes or med side-effect (tsh,bilirubin) Plan: CV Q 15 minute checks? Ativan 0.5 mg b.i.d. p.r.n. for severe anxiety trying to avoid benzos however patient does not have substance abuse history and has panic attacks Continue Tegretol XR 200 mg b.i.d.; since patient reports agitated, irritable edge to his anxiety will replace Trileptal : Tegretol level: WNL Continue venlafaxine ER m150mg ADD venlafaxine ER 37.5 mg starting 12/14 Added propranolol immediate release 10 mg q.i.d. Continue Propranolol LA 60mg daily Continue gabapentin 300 mg t.i.d.; may increase Continue clonidine 0.2 mg q.4h p.r.n. for anxiety (bp stable) and 0.1 mg scheduled q.h.s. for trouble sleeping DC Zyprexa patient feels combination of sedating into agitating DC Trileptal dc'd risperdal Patient educated on: diagnosis and medication risk/benefits Informed Consent: understands Reason for continued inpatient stay Substantial Risk for: inability to function Time Spent With Patient Time: Total time managing care of this patient today ____ minutes.
[2022-12-13 18:00] VITALS: BP 121/57; PULSE 82; TEMP 36.8; O2SAT 98
[2022-12-13] MEDS: Propranolol HCL 10 MG TABLET PO ×2 (18:00→19:47)
[2022-12-13] MEDS: Acetaminophen 325 MG TABLET 650 MG PO (18:04)
[2022-12-13] MEDS: traZODone HCL 50 MG TABLET PO ×2 (19:47→21:45)
[2022-12-13] MEDS: cloNIDine HCL 0.1 MG TABLET PO (19:47)
[2022-12-14 06:00] VITALS: BP 112/62; PULSE 76; RESP 18
[2022-12-14] MEDS: carBAMazepine ER 200 MG TAB.ER.12H PO ×2 (08:38→21:17)
[2022-12-14] MEDS: Hydrocortisone 1 % Cream 28.35 GM TUBE 1 APPL TOPICAL ×2 (08:38→21:28)
[2022-12-14] MEDS: Propranolol HCL LA 60 MG CAP.SA.24H PO (08:38)
[2022-12-14] MEDS: Nicotine 21 MG PATCH.TD24 TRANSDERMA (08:38)
[2022-12-14] MEDS: Gabapentin 300 MG CAPSULE PO ×3 (08:38→17:42)
[2022-12-14] MEDS: Propranolol HCL 10 MG TABLET PO ×4 (08:39→21:18)
[2022-12-14] MEDS: Venlafaxine HCl ER 150 MG CAP.ER.24H PO (08:39)
[2022-12-14] MEDS: Venlafaxine HCl ER 37.5 MG CAP.ER.24H PO (08:39)
[2022-12-14] MEDS: Nicotine Polacrilex 2 MG GUM 4 MG BUCCAL ×4 (08:54→21:26)
[2022-12-14] MEDS: hydrOXYzine HCL 25 MG TABLET PO ×2 (08:54→17:50)
[2022-12-14 12:43] VITALS: BP 131/67; PULSE 88
[2022-12-14 13:59] VITALS: BP 141/92; PULSE 76
[2022-12-14] MEDS: cloNIDine HCL 0.2 MG TABLET PO (13:59)
[2022-12-14 17:35] VITALS: BP 110/57; PULSE 85; TEMP 35.7
[2022-12-14] MEDS: cloNIDine HCL 0.1 MG TABLET PO (21:15)
[2022-12-14] MEDS: traZODone HCL 50 MG TABLET PO (21:16)
[2022-12-14] MEDS: Gabapentin 300 MG CAPSULE 600 MG PO (21:17)
[2022-12-15 09:00] VITALS: BP 131/81; PULSE 75; RESP 18; TEMP 36; O2SAT 100
[2022-12-15] MEDS: Gabapentin 300 MG CAPSULE 600 MG PO ×3 (09:10→20:55)
[2022-12-15] MEDS: Propranolol HCL LA 60 MG CAP.SA.24H PO (09:10)
[2022-12-15] MEDS: Propranolol HCL 10 MG TABLET PO ×4 (09:10→20:55)
[2022-12-15] MEDS: carBAMazepine ER 200 MG TAB.ER.12H PO ×2 (09:10→20:56)
[2022-12-15] MEDS: Venlafaxine HCl ER 37.5 MG CAP.ER.24H PO (09:11)
[2022-12-15] MEDS: Hydrocortisone 1 % Cream 28.35 GM TUBE 1 APPL TOPICAL ×2 (09:11→21:15)
[2022-12-15] MEDS: Venlafaxine HCl ER 150 MG CAP.ER.24H PO (09:11)
[2022-12-15] MEDS: Nicotine 21 MG PATCH.TD24 TRANSDERMA (09:11)
[2022-12-15] MEDS: hydrOXYzine HCL 25 MG TABLET PO ×3 (09:11→22:00)
[2022-12-15] MEDS: Nicotine Polacrilex 2 MG GUM 4 MG BUCCAL ×5 (09:12→21:16)
--- NOTE | 2022-12-15 10:24 | HO.PSYCHPN ---
Subjective Subjective Date of Service: 12/14/22 Reason For Visit: Post Traumatic Stress Disorder Interim History: Late entry note for patient seen on 12/14 Met with patient and discussed with team Still very anxious today, no itching but various somatic complaints; he asks for increase in gabapentin to which adjusto writer operator agrees. Mental Status Exam Mental Status Exam Narrative: Pt is alert and oriented; behavior is cooperative, more friendly, still anxious; dressed in combo of hospital attire and casual cloths; clean shaven and adequate hygiene; mood is described as very anxious and affect congruent, but overall a little more calm than admission; eye contact appropriate; Speech is normal rate, volume and prosody and not pressured; some psychomotor retardation present; thought process is goal directed; Thought content is preoccupied with anxiety symptoms and somatic experiences; otherwise pertinent to relevant topics and without any delusional content, paranoid ideations or grandiosity; no SI; no HI. There is no evidence of perceptual disturbance. Patients insight and judgment impaired Diagnostics Vital Signs (24Hr): Vital Signs - 24 hr 12/14/22 12:43 12/14/22 13:59 12/14/22 17:35 Temperature 96.3 F L Pulse Rate 88 76 85 Respiratory Rate Blood Pressure 131/67 141/92 H 110/57 L Pulse Oximetry Oxygen Delivery Method 12/15/22 09:00 Temperature 96.8 F Pulse Rate 75 Respiratory Rate 18 Blood Pressure 131/81 Pulse Oximetry 100 Oxygen Delivery Method Room Air BMI result Body Mass Index 28.8 Labs 12/08/22 07:32 Imaging Radiology Impressions: ITS Impressions Head CT 12/03/22 09:09 IMPRESSION: No acute intracranial pathology. Medications Medications Current Medications Acetaminophen (Acetaminophen 325 Mg Tablet) 650 mg PO Q6H PRN PRN Reason: Headache/Pain Mild Scale (1-3) Last Admin: 12/13/22 18:04 Dose: 650 mg Al Hydroxide/Mg Hydroxide (Magnesium Hydrox/Alum Hydrox 30 Ml Oral.Susp) 30 ml PO Q6H PRN PRN Reason: Heartburn/Nausea Last Admin: 12/08/22 21:42 Dose: 30 ml Benzocaine (Throat Lozenge, Medicated Lozenge) 1 lozenge MUCOUS MEM Q2H PRN PRN Reason: Sore Throat Last Admin: 12/07/22 23:21 Dose: 1 lozenge Carbamazepine (Carbamazepine Er 200 Mg Tab.Er.12h) 200 mg PO BID JAE Last Admin: 12/15/22 09:10 Dose: 200 mg Clonidine HCl (Clonidine Hcl 0.1 Mg Tablet) 0.1 mg PO BEDTIME JAE; Protocol Last Admin: 12/14/22 21:15 Dose: 0.1 mg Clonidine HCl (Clonidine Hcl 0.2 Mg Tablet) 0.2 mg PO Q4H PRN; Protocol PRN Reason: anxiety Last Admin: 12/14/22 13:59 Dose: 0.2 mg Gabapentin (Gabapentin 300 Mg Capsule) 600 mg PO TID JAE Last Admin: 12/15/22 09:10 Dose: 600 mg Hydrocortisone (Hydrocortisone 1 % Cream 28.35 Gm Tube) 1 appl TOPICAL BID JAE; Protocol Stop: 12/15/22 23:50 Last Admin: 12/15/22 09:11 Dose: 1 appl Hydroxyzine HCl (Hydroxyzine Hcl 25 Mg Tablet) 25 mg PO Q6H PRN PRN Reason: Anxiety Last Admin: 12/15/22 09:11 Dose: 25 mg Magnesium Hydroxide (Milk Of Magnesia 30 Ml Oral.Susp) 30 ml PO DAILY PRN PRN Reason: Constipation Nicotine (Nicotine 21 Mg Patch.Td24) 21 mg TRANSDERMA DAILY PRN PRN Reason: smoking cessation Last Admin: 12/15/22 09:11 Dose: 21 mg Nicotine Polacrilex (Nicotine Polacrilex 2 Mg Gum) 4 mg BUCCAL Q2H PRN PRN Reason: nicotine cravings Last Admin: 12/15/22 09:12 Dose: 4 mg Propranolol HCl (Propranolol Hcl La 60 Mg Cap.Sa.24h) 60 mg PO DAILY JAE; Protocol Last Admin: 12/15/22 09:10 Dose: 60 mg Propranolol HCl (Propranolol Hcl 10 Mg Tablet) 10 mg PO QID JAE; Protocol Last Admin: 12/15/22 09:10 Dose: 10 mg Trazodone HCl (Trazodone Hcl 50 Mg Tablet) 50 mg PO BEDTIME MRX1 PRN PRN Reason: Insomnia Last Admin: 12/14/22 21:16 Dose: 50 mg Venlafaxine HCl (Venlafaxine Hcl Er 150 Mg Cap.Er.24h) 150 mg PO DAILY JAE Last Admin: 12/15/22 09:11 Dose: 150 mg Venlafaxine HCl (Venlafaxine Hcl Er 37.5 Mg Cap.Er.24h) 37.5 mg PO DAILY JAE Last Admin: 12/15/22 09:11 Dose: 37.5 mg Allergies Allergies Allergy/AdvReac Type Severity Reaction Status Date / Time amoxicillin Allergy Severe Rash Verified 11/28/22 13:16 cephalexin [From Keflex] Allergy Severe Rash Verified 11/28/22 13:16 Assessment & Plan Assessment & Plan (1) SAWYER (generalized anxiety disorder): Status: Acute Code(s): F41.1 - Generalized anxiety disorder (2) OCD (obsessive compulsive disorder): Status: Suspected Code(s): F42.9 - Obsessive-compulsive disorder, unspecified Assessment and Plan: 12/08 dced ativan trial low dose risperidone 12/09 added risperidone 0.5mg prn yesterday that helped may want to inc standing dose from 0.25mg bid = (3) PTSD (post-traumatic stress disorder): Status: Acute Code(s): F43.10 - Post-traumatic stress disorder, unspecified (4) MDD (major depressive disorder), recurrent severe, without psychosis: Status: Acute Code(s): F33.2 - Major depressive disorder, recurrent severe without psychotic features Plan Patient is a 37-year-old male with history of MDD, PTSD and severe anxiety who presents for worsening anxiety. Patient lives in a tent in the [facility] and has for 3 years. He reports that his anxiety has been worsening over the past few months but especially so the past few weeks. He is not sure why but says that he feels terrified of many different things, a small sound will send him into a panic where he gets sweaty, starts to hyperventilate, the muscles tense, and he starts to feel confused. Patient reports other associated neurological complaints such as being dizzy or having trouble walking but all in the context of panic/anxiety. Patient is clearly very anxious during interview and [place] about very little else. Patient says his anxiety is all the time and that recently he does lied in his tent for 3 days in a row hardly moving, just looking at the ceiling. Patient denies any history of manic episodes; denies AVH; denies alcohol or drug use; patient has passive SI, wishing he were but no intent or plans and no history of attempts. [facility] and was started on venlafaxine which he has taken daily and agrees to increase now. Impression: Patient has severe anxiety; will need to explore further and determine if patient has OCD. History of trauma and PTSD symptoms contributory. No obvious psychotic symptoms Hospital course: 12/03 remains very anxious and somatically pre-occupied. c/o irritable edge and asks for Tegretol. Remote possibility that pt could have some mixed manic symptoms but since does not want Trileptal will start Tegretol (which he asks for by name; says Trileptal may have made anxiety worse-though this is thought is quite possibly just product of anxiety). Gabapentin prn for anxiety. Headache is mostly all resolved Head CT unremarkable 12/05 remains very anxious, somatically preoccupied; will increase venlafaxine; will get labs for Tegretol level before increasing. Patient says he has history of intermittent explosive disorder and can get very angry where he breaks and throws things. 12/06 thinks maybe a little less anxious; did get angry but stated control; continue current treatment plan 12/07 still very anxious; will check Tegretol level tomorrow and consider increasing Medical consult called to assess right inner ear pain 12/10 still very debilitated by anxiety; increasing effexor to 150mg and starting propranolol; dc risperdal, feels makes worse 12/11 very anxious; preoccupied with various somatic complaints; change to long acting propranolol which he said was helping; continue on Effexor for now 12/12 some improved perspective is patient himself said that his anxiety seems to manifest itself in physical ways. 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 Ativan 0.5 mg b.i.d. p.r.n. for severe anxiety trying to avoid benzos however patient does not have substance abuse history and has panic attacks Continue Tegretol XR 200 mg b.i.d.; since patient reports agitated, irritable edge to his anxiety will replace Trileptal : Tegretol level: WNL Continue venlafaxine ER m150mg Started venlafaxine ER 37.5 mg Added propranolol immediate release 10 mg q.i.d. Continue Propranolol LA 60mg daily Increased to gabapentin 600 mg t.i.d.; reviewed risks side effects Continue clonidine 0.2 mg q.4h p.r.n. for anxiety (bp stable) and 0.1 mg scheduled q.h.s. for trouble sleeping DC Zyprexa patient feels combination of sedating into agitating DC Trileptal dc'd risperdal Patient educated on: diagnosis and medication risk/benefits Informed Consent: understands, does not understand and further education needed Reason for continued inpatient stay Substantial Risk for: inability to function Time Spent With Patient Time: Total time managing care of this patient today ____ minutes.
--- NOTE | 2022-12-15 10:26 | HO.PSYCHPN ---
Subjective Subjective Date of Service: 12/15/22 Reason For Visit: Post Traumatic Stress Disorder Interim History: Met with patient; discussed with team Patient remains very anxious but intensity seems to fluctuate. This morning he says he was extremely anxious with multiple discordant somatic symptoms; however he said this afternoon he is doing a little better and was out in the milieu doing a crossword puzzle which he said helped. He agreed to further titrate venlafaxine. Patient feeling depressed because of excessive anxiety due to intrusive thoughts about perceived somatic experiences Mental Status Exam Mental Status Exam Narrative: Pt is alert and oriented; behavior is cooperative, more friendly, still anxious; dressed in combo of hospital attire and casual cloths; scruffy factial and adequate hygiene; mood is described as ok and affect congruent, still quite anxious but with intermittent moments where it's less intense; eye contact appropriate; Speech is normal rate, volume and prosody and not pressured; some psychomotor retardation present; thought process is goal directed; Thought content is preoccupied with anxiety symptoms and somatic experiences; otherwise pertinent to relevant topics and without any delusional content, paranoid ideations or grandiosity; no SI; no HI. There is no evidence of perceptual disturbance. Patients insight and judgment impaired Diagnostics Vital Signs (24Hr): Vital Signs - 24 hr 12/14/22 12:43 12/14/22 13:59 12/14/22 17:35 Temperature 96.3 F L Pulse Rate 88 76 85 Respiratory Rate Blood Pressure 131/67 141/92 H 110/57 L Pulse Oximetry Oxygen Delivery Method 12/15/22 09:00 Temperature 96.8 F Pulse Rate 75 Respiratory Rate 18 Blood Pressure 131/81 Pulse Oximetry 100 Oxygen Delivery Method Room Air BMI result Body Mass Index 28.8 Labs 12/08/22 07:32 Imaging Radiology Impressions: ITS Impressions Head CT 12/03/22 09:09 IMPRESSION: No acute intracranial pathology. Medications Medications Current Medications Acetaminophen (Acetaminophen 325 Mg Tablet) 650 mg PO Q6H PRN PRN Reason: Headache/Pain Mild Scale (1-3) Last Admin: 12/13/22 18:04 Dose: 650 mg Al Hydroxide/Mg Hydroxide (Magnesium Hydrox/Alum Hydrox 30 Ml Oral.Susp) 30 ml PO Q6H PRN PRN Reason: Heartburn/Nausea Last Admin: 12/08/22 21:42 Dose: 30 ml Benzocaine (Throat Lozenge, Medicated Lozenge) 1 lozenge MUCOUS MEM Q2H PRN PRN Reason: Sore Throat Last Admin: 12/07/22 23:21 Dose: 1 lozenge Carbamazepine (Carbamazepine Er 200 Mg Tab.Er.12h) 200 mg PO BID JAE Last Admin: 12/15/22 09:10 Dose: 200 mg Clonidine HCl (Clonidine Hcl 0.1 Mg Tablet) 0.1 mg PO BEDTIME JAE; Protocol Last Admin: 12/14/22 21:15 Dose: 0.1 mg Clonidine HCl (Clonidine Hcl 0.2 Mg Tablet) 0.2 mg PO Q4H PRN; Protocol PRN Reason: anxiety Last Admin: 12/14/22 13:59 Dose: 0.2 mg Gabapentin (Gabapentin 300 Mg Capsule) 600 mg PO TID JAE Last Admin: 12/15/22 09:10 Dose: 600 mg Hydrocortisone (Hydrocortisone 1 % Cream 28.35 Gm Tube) 1 appl TOPICAL BID JAE; Protocol Stop: 12/15/22 23:50 Last Admin: 12/15/22 09:11 Dose: 1 appl Hydroxyzine HCl (Hydroxyzine Hcl 25 Mg Tablet) 25 mg PO Q6H PRN PRN Reason: Anxiety Last Admin: 12/15/22 09:11 Dose: 25 mg Magnesium Hydroxide (Milk Of Magnesia 30 Ml Oral.Susp) 30 ml PO DAILY PRN PRN Reason: Constipation Nicotine (Nicotine 21 Mg Patch.Td24) 21 mg TRANSDERMA DAILY PRN PRN Reason: smoking cessation Last Admin: 12/15/22 09:11 Dose: 21 mg Nicotine Polacrilex (Nicotine Polacrilex 2 Mg Gum) 4 mg BUCCAL Q2H PRN PRN Reason: nicotine cravings Last Admin: 12/15/22 09:12 Dose: 4 mg Propranolol HCl (Propranolol Hcl La 60 Mg Cap.Sa.24h) 60 mg PO DAILY JAE; Protocol Last Admin: 12/15/22 09:10 Dose: 60 mg Propranolol HCl (Propranolol Hcl 10 Mg Tablet) 10 mg PO QID JAE; Protocol Last Admin: 12/15/22 09:10 Dose: 10 mg Trazodone HCl (Trazodone Hcl 50 Mg Tablet) 50 mg PO BEDTIME MRX1 PRN PRN Reason: Insomnia Last Admin: 12/14/22 21:16 Dose: 50 mg Venlafaxine HCl (Venlafaxine Hcl Er 150 Mg Cap.Er.24h) 150 mg PO DAILY [facility] Last Admin: 12/15/22 09:11 Dose: 150 mg Venlafaxine HCl (Venlafaxine Hcl Er 37.5 Mg Cap.Er.24h) 37.5 mg PO DAILY [facility] Last Admin: 12/15/22 09:11 Dose: 37.5 mg Allergies Allergies Allergy/AdvReac Type Severity Reaction Status Date / Time amoxicillin Allergy Severe Rash Verified 11/28/22 13:16 cephalexin [From Keflex] Allergy Severe Rash Verified 11/28/22 13:16 Assessment & Plan Assessment & Plan (1) SAWYER (generalized anxiety disorder): Status: Acute Code(s): F41.1 - Generalized anxiety disorder (2) OCD (obsessive compulsive disorder): Status: Suspected Code(s): F42.9 - Obsessive-compulsive disorder, unspecified Assessment and Plan: 12/08 dced ativan trial low dose risperidone 12/09 added risperidone 0.5mg prn yesterday that helped may want to inc standing dose from 0.25mg bid = (3) PTSD (post-traumatic stress disorder): Status: Acute Code(s): F43.10 - Post-traumatic stress disorder, unspecified (4) MDD (major depressive disorder), recurrent severe, without psychosis: Status: Acute Code(s): F33.2 - Major depressive disorder, recurrent severe without psychotic features Plan Patient is a 37-year-old male with history of MDD, PTSD and severe anxiety who presents for worsening anxiety. Patient lives in a tent in the [facility] and has for 3 years. He reports that his anxiety has been worsening over the past few months but especially so the past few weeks. He is not sure why but says that he feels terrified of many different things, a small sound will send him into a panic where he gets sweaty, starts to hyperventilate, the muscles tense, and he starts to feel confused. Patient reports other associated neurological complaints such as being dizzy or having trouble walking but all in the context of panic/anxiety. Patient is clearly very anxious during interview and [place] about very little else. Patient says his anxiety is all the time and that recently he does lied in his tent for 3 days in a row hardly moving, just looking at the ceiling. Patient denies any history of manic episodes; denies AVH; denies alcohol or drug use; patient has passive SI, wishing he were but no intent or plans and no history of attempts. Patient recently at [facility] respite and was started on venlafaxine which he has taken daily and agrees to increase now. Impression: Patient has severe anxiety; will need to explore further and determine if patient has OCD. History of trauma and PTSD symptoms contributory. No obvious psychotic symptoms Hospital course: 12/03 remains very anxious and somatically pre-occupied. c/o irritable edge and asks for Tegretol. Remote possibility that pt could have some mixed manic symptoms but since does not want Trileptal will start Tegretol (which he asks for by name; says Trileptal may have made anxiety worse-though this is thought is quite possibly just product of anxiety). Gabapentin prn for anxiety. Headache is mostly all resolved Head CT unremarkable 12/05 remains very anxious, somatically preoccupied; will increase venlafaxine; will get labs for Tegretol level before increasing. Patient says he has history of intermittent explosive disorder and can get very angry where he breaks and throws things. 12/06 thinks maybe a little less anxious; did get angry but stated control; continue current treatment plan 12/07 still very anxious; will check Tegretol level tomorrow and consider increasing Medical consult called to assess right inner ear pain 12/10 still very debilitated by anxiety; increasing effexor to 150mg and starting propranolol; dc risperdal, feels makes worse 12/11 very anxious; preoccupied with various somatic complaints; change to long acting propranolol which he said was helping; continue on Effexor for now 12/12 some improved perspective is patient himself said that his anxiety seems to manifest itself in physical ways. 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 Plan: CV Q 15 minute checks? Ativan 0.5 mg b.i.d. p.r.n. for severe anxiety trying to avoid benzos however patient does not have substance abuse history and has panic attacks Continue Tegretol XR 200 mg b.i.d.; since patient reports agitated, irritable edge to his anxiety Tegretol level: WNL Increase venlafaxine ER to 225 mg daily for treatment for OCD/SAWYER Added propranolol immediate release 10 mg q.i.d. Continue Propranolol LA 60mg daily; may increase Increased to gabapentin 600 mg t.i.d.; reviewed risks side effects Continue clonidine 0.2 mg q.4h p.r.n. for anxiety (bp stable) and 0.1 mg scheduled q.h.s. for trouble sleeping DC Zyprexa patient feels combination of sedating into agitating DC Trileptal dc'd risperdal Patient educated on: diagnosis and medication risk/benefits Informed Consent: understands and further education needed Reason for continued inpatient stay Substantial Risk for: inability to function and rapid decompensation Time Spent With Patient Time: Total time managing care of this patient today ____ minutes.
[2022-12-15 13:15] VITALS: BP 128/81; PULSE 88
[2022-12-15] MEDS: cloNIDine HCL 0.2 MG TABLET PO ×2 (13:18→18:39)
[2022-12-15 16:40] VITALS: BP 126/74; PULSE 86; RESP 16; TEMP 37.1; O2SAT 99
[2022-12-15 18:35] VITALS: BP 120/82; PULSE 88; RESP 18
[2022-12-15] MEDS: traZODone HCL 50 MG TABLET PO (20:55)
[2022-12-15] MEDS: cloNIDine HCL 0.1 MG TABLET PO (20:55)
[2022-12-16] MEDS: Venlafaxine HCl ER 75 MG CAP.ER.24H 225 MG PO (09:04)
[2022-12-16] MEDS: hydrOXYzine HCL 25 MG TABLET PO ×3 (09:04→21:17)
[2022-12-16] MEDS: Propranolol HCL LA 60 MG CAP.SA.24H PO (09:04)
[2022-12-16 09:05] VITALS: BP 115/91; PULSE 80; RESP 18; TEMP 36.3; O2SAT 100
[2022-12-16] MEDS: Propranolol HCL 10 MG TABLET PO ×4 (09:05→21:14)
[2022-12-16] MEDS: carBAMazepine ER 200 MG TAB.ER.12H PO ×2 (09:05→21:14)
[2022-12-16] MEDS: Nicotine Polacrilex 2 MG GUM 4 MG BUCCAL ×4 (09:05→21:17)
[2022-12-16] MEDS: Gabapentin 300 MG CAPSULE 600 MG PO ×3 (09:05→21:15)
[2022-12-16] MEDS: Nicotine 21 MG PATCH.TD24 TRANSDERMA (09:06)
--- NOTE | 2022-12-16 10:25 | HO.PSYCHPN ---
Subjective Subjective Date of Service: 12/16/22 Reason For Visit: Post Traumatic Stress Disorder Interim History: Met with patient; discussed with team Patient expresses that he is miserable with anxiety; continues to list various somatic experiences he is having ago on off throughout the day. Says he is feeling panicky. Wonders about Lyme disease since [facility]. Patient agrees to gabapentin p.r.n. as well as starting clomipramine Mental Status Exam Mental Status Exam Narrative: Pt is alert and oriented; behavior is cooperative, more friendly, still anxious; dressed in combo of hospital attire and casual cloths; scruffy factial and adequate hygiene; mood is described as anxious and affect congruent, still quite anxious but with intermittent moments where it's less intense; eye contact appropriate; Speech is normal rate, volume and prosody and not pressured; some psychomotor retardation present; thought process is goal directed; Thought content is preoccupied with anxiety symptoms and somatic experiences; otherwise pertinent to relevant topics and without any delusional content, paranoid ideations or grandiosity; no SI; no HI. There is no evidence of perceptual disturbance. Patients insight and judgment impaired Diagnostics Vital Signs (24Hr): Vital Signs - 24 hr 12/15/22 13:15 12/15/22 16:40 12/15/22 18:35 Temperature 98.7 F Pulse Rate 88 86 88 Respiratory Rate 16 18 Blood Pressure 128/81 126/74 120/82 Pulse Oximetry 99 Oxygen Delivery Method Room Air 12/16/22 09:05 Temperature 97.3 F Pulse Rate 80 Respiratory Rate 18 Blood Pressure 115/91 H Pulse Oximetry 100 Oxygen Delivery Method Room Air BMI result Body Mass Index 28.8 Labs 12/08/22 07:32 Imaging Radiology Impressions: ITS Impressions Head CT 12/03/22 09:09 IMPRESSION: No acute intracranial pathology. Medications Medications Current Medications Acetaminophen (Acetaminophen 325 Mg Tablet) 650 mg PO Q6H PRN PRN Reason: Headache/Pain Mild Scale (1-3) Last Admin: 12/13/22 18:04 Dose: 650 mg Al Hydroxide/Mg Hydroxide (Magnesium Hydrox/Alum Hydrox 30 Ml Oral.Susp) 30 ml PO Q6H PRN PRN Reason: Heartburn/Nausea Last Admin: 12/08/22 21:42 Dose: 30 ml Benzocaine (Throat Lozenge, Medicated Lozenge) 1 lozenge MUCOUS MEM Q2H PRN PRN Reason: Sore Throat Last Admin: 12/07/22 23:21 Dose: 1 lozenge Carbamazepine (Carbamazepine Er 200 Mg Tab.Er.12h) 200 mg PO BID JAE Last Admin: 12/16/22 09:05 Dose: 200 mg Clonidine HCl (Clonidine Hcl 0.1 Mg Tablet) 0.1 mg PO BEDTIME JAE; Protocol Last Admin: 12/15/22 20:55 Dose: 0.1 mg Clonidine HCl (Clonidine Hcl 0.2 Mg Tablet) 0.2 mg PO Q4H PRN; Protocol PRN Reason: anxiety Last Admin: 12/15/22 18:39 Dose: 0.2 mg Gabapentin (Gabapentin 300 Mg Capsule) 600 mg PO TID JAE Last Admin: 12/16/22 09:05 Dose: 600 mg Hydroxyzine HCl (Hydroxyzine Hcl 25 Mg Tablet) 25 mg PO Q6H PRN PRN Reason: Anxiety Last Admin: 12/16/22 09:04 Dose: 25 mg Magnesium Hydroxide (Milk Of Magnesia 30 Ml Oral.Susp) 30 ml PO DAILY PRN PRN Reason: Constipation Nicotine (Nicotine 21 Mg Patch.Td24) 21 mg TRANSDERMA DAILY PRN PRN Reason: smoking cessation Last Admin: 12/16/22 09:06 Dose: 21 mg Nicotine Polacrilex (Nicotine Polacrilex 2 Mg Gum) 4 mg BUCCAL Q2H PRN PRN Reason: nicotine cravings Last Admin: 12/16/22 09:05 Dose: 4 mg Propranolol HCl (Propranolol Hcl La 60 Mg Cap.Sa.24h) 60 mg PO DAILY JAE; Protocol Last Admin: 12/16/22 09:04 Dose: 60 mg Propranolol HCl (Propranolol Hcl 10 Mg Tablet) 10 mg PO QID JAE; Protocol Last Admin: 12/16/22 09:05 Dose: 10 mg Trazodone HCl (Trazodone Hcl 50 Mg Tablet) 50 mg PO BEDTIME MRX1 PRN PRN Reason: Insomnia Last Admin: 12/15/22 20:55 Dose: 50 mg Venlafaxine HCl (Venlafaxine Hcl Er 75 Mg Cap.Er.24h) 225 mg PO DAILY JAE Last Admin: 12/16/22 09:04 Dose: 225 mg Allergies Allergies Allergy/AdvReac Type Severity Reaction Status Date / Time amoxicillin Allergy Severe Rash Verified 11/28/22 13:16 cephalexin [From Keflex] Allergy Severe Rash Verified 11/28/22 13:16 Assessment & Plan Assessment & Plan (1) SAWYER (generalized anxiety disorder): Status: Acute Code(s): F41.1 - Generalized anxiety disorder (2) OCD (obsessive compulsive disorder): Status: Suspected Code(s): F42.9 - Obsessive-compulsive disorder, unspecified (3) PTSD (post-traumatic stress disorder): Status: Acute Code(s): F43.10 - Post-traumatic stress disorder, unspecified (4) MDD (major depressive disorder), recurrent severe, without psychosis: Status: Acute Code(s): F33.2 - Major depressive disorder, recurrent severe without psychotic features Plan Patient is a 37-year-old male with history of MDD, PTSD and severe anxiety who presents for worsening anxiety. [facility] and has for 3 years. He reports that his anxiety has been worsening over the past few months but especially so the past few weeks. He is not sure why but says that he feels terrified of many different things, a small sound will send him into a panic where he gets sweaty, starts to hyperventilate, the muscles tense, and he starts to feel confused. Patient reports other associated neurological complaints such as being dizzy or having trouble walking but all in the context of panic/anxiety. Patient is clearly very anxious during interview and [place] about very little else. Patient says his anxiety is all the time and that recently he does lied in his tent for 3 days in a row hardly moving, just looking at the ceiling. Patient denies any history of manic episodes; denies AVH; denies alcohol or drug use; patient has passive SI, wishing he were but no intent or plans and no history of attempts. Patient recently at [facility] respite and was started on venlafaxine which he has taken daily and agrees to increase now. Impression: Patient has severe anxiety; will need to explore further and determine if patient has OCD. History of trauma and PTSD symptoms contributory. No obvious psychotic symptoms Hospital course: 12/03 remains very anxious and somatically pre-occupied. c/o irritable edge and asks for Tegretol. Remote possibility that pt could have some mixed manic symptoms but since does not want Trileptal will start Tegretol (which he asks for by name; says Trileptal may have made anxiety worse-though this is thought is quite possibly just product of anxiety). Gabapentin prn for anxiety. Headache is mostly all resolved Head CT unremarkable 12/05 remains very anxious, somatically preoccupied; will increase venlafaxine; will get labs for Tegretol level before increasing. Patient says he has history of intermittent explosive disorder and can get very angry where he breaks and throws things. 12/06 thinks maybe a little less anxious; did get angry but stated control; continue current treatment plan 12/07 still very anxious; will check Tegretol level tomorrow and consider increasing Medical consult called to assess right inner ear pain 12/10 still very debilitated by anxiety; increasing effexor to 150mg and starting propranolol; dc risperdal, feels makes worse 12/11 very anxious; preoccupied with various somatic complaints; change to long acting propranolol which he said was helping; continue on Effexor for now 12/12 some improved perspective is patient himself said that his anxiety seems to manifest itself in physical ways. 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 Regarding complaint of itching, patient's bilirubin, TSH, HA1c all WNL; kidney function WNL; could possibly be side effect from Tegretol, though still seems to be most likely due to physical manifestation of patient's anxiety since sensation seems to dissipate when he is not feeling as anxious 12/16 no change. Would expect some improvement from Effexor at 225 mg; and while it is possible that with longer time or at a higher dose, Effexor could become helpful it seems that there would be some more obvious improvement even if only a little, by this point. And while it seemed that patient had improved some early on, his symptoms remain as pronounced as on admission. Discussed with patient and Will start clomipramine -will likely check for Lyme Plan: CV Q 15 minute checks? sTART Clomipramine 25mg qhs for OCD/SAWYER symptoms Ativan 0.5 mg b.i.d. p.r.n. for severe anxiety trying to avoid benzos however patient does not have substance abuse history and has panic attacks Continue Tegretol XR 200 mg b.i.d.; since patient reports agitated, irritable edge to his anxiety Tegretol level: WNL Increase venlafaxine ER to 225 mg daily for treatment for OCD/SAWYER Added propranolol immediate release 10 mg q.i.d. Continue Propranolol LA 60mg daily; may increase Increased to gabapentin 600 mg t.i.d.; reviewed risks side effects Continue clonidine 0.2 mg q.4h p.r.n. for anxiety (bp stable) and 0.1 mg scheduled q.h.s. for trouble sleeping DC Zyprexa patient feels combination of sedating into agitating DC Trileptal dc'd risperdal Patient educated on: diagnosis and medication risk/benefits Informed Consent: understands, does not understand and further education needed Reason for continued inpatient stay Substantial Risk for: inability to function Time Spent With Patient Time: Total time managing care of this patient today ____ minutes.
[2022-12-16 11:10] VITALS: BP 121/80; PULSE 93
[2022-12-16] MEDS: cloNIDine HCL 0.2 MG TABLET PO ×2 (11:13→17:04)
[2022-12-16 14:21] VITALS: BP 121/66; PULSE 81
[2022-12-16 16:50] VITALS: BP 120/79; PULSE 89; TEMP 36; O2SAT 98
[2022-12-16] MEDS: Gabapentin 100 MG CAPSULE 200 MG PO (16:59)
[2022-12-16] MEDS: clomiPRAMINE HCl 25 MG CAPSULE PO (21:14)
[2022-12-16] MEDS: traZODone HCL 50 MG TABLET PO (21:15)
[2022-12-16] MEDS: cloNIDine HCL 0.1 MG TABLET PO (21:15)
[2022-12-16] MEDS: Acetaminophen 325 MG TABLET 650 MG PO (21:17)
[2022-12-16 22:10] VITALS: BP 117/66; PULSE 77; RESP 14; TEMP 36.7; O2SAT 97
[2022-12-17 08:00] VITALS: BP 116/63; PULSE 75; RESP 16; TEMP 36.5; O2SAT 100
[2022-12-17] MEDS: Propranolol HCL 10 MG TABLET PO ×4 (08:18→21:16)
[2022-12-17] MEDS: Gabapentin 300 MG CAPSULE 600 MG PO ×3 (08:18→21:17)
[2022-12-17] MEDS: carBAMazepine ER 200 MG TAB.ER.12H PO ×2 (08:19→21:17)
[2022-12-17] MEDS: Propranolol HCL LA 80 MG CAP.SA.24H PO (08:19)
[2022-12-17] MEDS: Venlafaxine HCl ER 75 MG CAP.ER.24H 225 MG PO (08:20)
[2022-12-17] MEDS: Nicotine Polacrilex 2 MG GUM 4 MG BUCCAL ×4 (08:59→21:16)
[2022-12-17] MEDS: Gabapentin 100 MG CAPSULE 200 MG PO ×2 (10:39→19:04)
[2022-12-17] MEDS: hydrOXYzine HCL 25 MG TABLET PO ×2 (12:37→19:04)
[2022-12-17 12:39] VITALS: BP 122/80; PULSE 81; RESP 16; TEMP 36.2; O2SAT 98
[2022-12-17] MEDS: cloNIDine HCL 0.2 MG TABLET PO ×2 (13:11→19:03)
--- NOTE | 2022-12-17 14:21 | P.PNPSI_ITS ---
Subjective Subjective Date of Service: 12/17/22 Reason For Visit: Post Traumatic Stress Disorder Interim History: Met with patient; discussed with team Remains very anxious focused somatically complaints. Discussed somatic disorder which patient said he understood but did not keep him from quickly reverting back to listing all the different somatic complaints; discussed medication rafat gement and decided to lower Effexor to see if perhaps titration was too fast and has exacerbated anxiety. talked about how some people are more sensitive and more intune with sensory feedback than others, and where others are able to ignore many sensory inputs, some people remain at a heightened awareness; discussed how when anxiety becomes an issue it can cause a hyper focus on these sensory inputs and that. Dwelling on that makes it exacerbates it. Discussed somatic symptom disorder; also went over some relaxation techniques. Patient did do some deep breathing which was momentarily helpful. Mental Status Exam Mental Status Exam Narrative: Pt is alert and oriented; behavior is cooperative, more friendly, still anxious; dressed in combo of hospital attire and casual cloths; scruffy factial and adequate hygiene; mood is described as anxious and affect congruent, still q uite anxious but with intermittent moments where it's less intense; eye contact appropriate; Speech is normal rate, volume and prosody and not pressured; some psychomotor retardation present; thought process is goal directed; Thought content is preoccupied with anxiety symptoms and somatic experiences; otherwise pertinent to relevant topics and without any delusional content, paranoid ideations or grandiosity; no SI; no HI. There is no evidence of perceptual disturbance. Patients insight and judgment impaired Diagnostics Vital Signs (24Hr): Vital Signs - 24 hr 12/16/22 16:50 12/16/22 22:10 12/17/22 08:00 Temperature 96.8 F 98.0 F 97.7 F Pulse Rate 89 77 75 Respiratory Rate 14 16 Blood Pressure 120/79 117/66 116/63 Pulse Oximetry 98 97 100 Oxygen Delivery Method Room Air Room Air Room Air 12/17/22 12:39 Temperature 97.1 F Pulse Rate 81 Respiratory Rate 16 Blood Pressure 122/80 Pulse Oximetry 98 Oxygen Delivery Method Room Air BMI result Body Mass Index 28.8 Labs 12/08/22 07:32 Imaging Radiology Impressions: ITS Impressions Head CT 12/03/22 09:09 IMPRESSION: No acute intracranial pathology. Medications Medications Current Medications Acetaminophen (Acetaminophen 325 Mg Tablet) 650 mg PO Q6H PRN PRN Reason: Headache/Pain Mild Scale (1-3) Last Admin: 12/16/22 21:17 Dose: 650 mg Al Hydroxide/Mg Hydroxide (Magnesium Hydrox/Alum Hydrox 30 Ml Oral.Susp) 30 ml PO Q6H PRN PRN Reason: Heartburn/Nausea Last Admin: 12/08/22 21:42 Dose: 30 ml Benzocaine (Throat Lozenge, Medicated Lozenge) 1 lozenge MUCOUS MEM Q2H PRN PRN Reason: Sore Throat Last Admin: 12/07/22 23:21 Dose: 1 lozenge Carbamazepine (Carbamazepine Er 200 Mg Tab.Er.12h) 200 mg PO BID JAE Last Admin: 12/17/22 08:19 Dose: 200 mg Clomipramine HCl (Clomipramine Hcl 25 Mg Capsule) 25 mg PO BEDTIME JAE Last Admin: 12/16/22 21:14 Dose: 25 mg Clonidine HCl (Clonidine Hcl 0.1 Mg Tablet) 0.1 mg PO BEDTIME JAE; Protocol Last Admin: 12/16/22 21:15 Dose: 0.1 mg Clonidine HCl (Clonidine Hcl 0.2 Mg Tablet) 0.2 mg PO Q4H PRN; Protocol PRN Reason: anxiety Last Admin: 12/17/22 13:11 Dose: 0.2 mg Gabapentin (Gabapentin 300 Mg Capsule) 600 mg PO TID JAE Last Admin: 12/17/22 08:18 Dose: 600 mg Gabapentin (Gabapentin 100 Mg Capsule) 200 mg PO BID PRN PRN Reason: anxiety Last Admin: 12/17/22 10:39 Dose: 200 mg Hydroxyzine HCl (Hydroxyzine Hcl 25 Mg Tablet) 25 mg PO Q6H PRN PRN Reason: Anxiety Last Admin: 12/17/22 12:37 Dose: 25 mg Magnesium Hydroxide (Milk Of Magnesia 30 Ml Oral.Susp) 30 ml PO DAILY PRN PRN Reason: Constipation Nicotine (Nicotine 21 Mg Patch.Td24) 21 mg TRANSDERMA DAILY PRN PRN Reason: smoking cessation Last Admin: 12/16/22 09:06 Dose: 21 mg Nicotine Polacrilex (Nicotine Polacrilex 2 Mg Gum) 4 mg BUCCAL Q2H PRN PRN Reason: nicotine cravings Last Admin: 12/17/22 12:38 Dose: 4 mg Propranolol HCl (Propranolol Hcl 10 Mg Tablet) 10 mg PO QID [facility]; Protocol Last Admin: 12/17/22 12:37 Dose: 10 mg Propranolol HCl (Propranolol Hcl La 80 Mg Cap.Sa.24h) 80 mg PO DAILY [facility]; Protocol Last Admin: 12/17/22 08:19 Dose: 80 mg Trazodone HCl (Trazodone Hcl 50 Mg Tablet) 50 mg PO BEDTIME MRX1 PRN PRN Reason: Insomnia Last Admin: 12/16/22 21:15 Dose: 50 mg Venlafaxine HCl (Venlafaxine Hcl Er 75 Mg Cap.Er.24h) 225 mg PO DAILY [facility] Last Admin: 12/17/22 08:20 Dose: 225 mg Allergies Allergies Allergy/AdvReac Type Severity Reaction Status Date / Time amoxicillin Allergy Severe Rash Verified 11/28/22 13:16 cephalexin [From Keflex] Allergy Severe Rash Verified 11/28/22 13:16 Assessment & Plan Assessment & Plan (1) SAWYER (generalized anxiety disorder): Status: Acute Code(s): F41.1 - Generalized anxiety disorder (2) OCD (obsessive compulsive disorder): Status: Suspected Code(s): F42.9 - Obsessive-compulsive disorder, unspecified (3) PTSD (post-traumatic stress disorder): Status: Acute Code(s): F43.10 - Post-traumatic stress disorder, unspecified (4) MDD (major depressive disorder), recurrent severe, without psychosis: Status: Acute Code(s): F33.2 - Major depressive disorder, recurrent severe without psychotic features (5) 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 Patient lives in a tent in the [facility] and has for 3 years. He reports that his anxiety has been worsening over the past few months but especially so the past few weeks. He is not sure why but says that he feels terrified of many different things, a small sound will send him into a panic where he gets sweaty, starts to hyperventilate, the muscles tense, and he starts to feel confused. Patient reports other associated neurological co mplaints such as being dizzy or having trouble walking but all in the context of panic/anxiety. Patient is clearly very anxious during interview and [place] about very little else. Patient says his anxiety is all the time and that recently he does lied in his tent for 3 days in a row hardly moving, just looking at the ceiling. Patient denies any history of manic episodes; denies AVH; denies alcohol or drug use; patient has passive SI, wishing he were but no intent or plans and no history of attempts. Patient recently at [facility] respite and was started on venlafaxine which he has taken daily and agrees to increase now. Impression: Patient has severe anxiety; will need to explore further and determine if patient has OCD. History of trauma and PTSD symptoms contributory. No obvious psychotic symptoms Hospital course: 12/03 remains very anxious and somatically pre-occupied. c/o irritable edge and asks for Tegretol. Remote possibility that pt could have some mixed manic symptoms but since does not want Trileptal will start Tegretol (which he asks for by name; says Trileptal may have made anxiety worse-though this is thought is quite possibly just product of anxiety). Gabapentin prn for anxiety. Headache is mostly all resolved Head CT unremarkable 12/05 remains very anxious, somatically preoccupied; will increase venlafaxine; will get labs for Tegretol level before increasing. Patient says he has history of intermittent explosive disorder and can get very angry where he breaks and throws things. 12/06 thinks maybe a little less anxious; did get angry but stated control; jacobo mixon current treatment plan 12/07 still very anxious; will check Tegretol level tomorrow and consider i ncreasing Medical consult called to assess right inner ear pain 12/10 still very debilitated by anxiety; increasing effexor to 150mg and starting propranolol; dc risperdal, feels makes worse 12/11 very anxious; preoccupied with various somatic complaints; change to long acting propranolol which he said was helping; continue on Effexor for now 12/12 some improved perspective is patient himself said that his anxiety seems to manifest itself in physical ways. 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 Regarding complaint of itching, patient's bilirubin, TSH, HA1c all WNL; kidney function WNL; could possibly be side effect from Tegretol, though still seems to be most likely due to physical manifestation of patient's anxiety since sensation seems to dissipate when he is not feeling as anxious 12/16 no change. Would expect some improvement from Effexor at 225 mg; and while it is possible that with longer time or at a higher dose, Effexor could become helpful it seems that there would be some more obvious improvement even if only a little, by this point. And while it seemed that patient had improved some early on, his symptoms remain as pronounced as on admission. Discussed with patient and Will start clomipramine -will likely check for Lyme 12/17 will lower Effexor due to possibility that titration has exacerbated anxiety; will instead focus on clomipramine; adding somatic sensory disorder Plan: CV Q 15 minute checks? Continue Clomipramine 25mg qhs for OCD/SAWYER symptoms Ativan 0.5 mg b.i.d. p.r.n. for severe anxiety trying to avoid benzos however patient does not have substance abuse history and has panic attacks Continue Tegretol XR 200 mg b.i.d.; since patient reports agitated, irritable edge to his anxiety Tegretol level: WNL Lower to venlafaxine ER to 150 mg daily for treatment for OCD/SAWYER Added propranolol immediate release 10 mg q.i.d. Continue Propranolol LA 60mg daily; may increase Increased to gabapentin 600 mg t.i.d.; reviewed risks side effects Continue clonidine 0.2 mg q.4h p.r.n. for anxiety (bp stable) and 0.1 mg sc heduled q.h.s. for trouble sleeping DC Zyprexa patient feels combination of sedating into agitating DC Trileptal dc'd risperdal Patient educated on: diagnosis and medication risk/benefits Informed Consent: understands, does not understand and further education needed Reason for continued inpatient stay Substantial Risk for: inability to function Time Spent With Patient Time: Total time managing care of this patient today ____ minutes.
[2022-12-17] MEDS: Acetaminophen 325 MG TABLET 650 MG PO (14:35)
[2022-12-17 16:18] VITALS: BP 133/81; PULSE 84; RESP 18; TEMP 36.6; O2SAT 97
[2022-12-17] MEDS: clomiPRAMINE HCl 25 MG CAPSULE PO (21:16)
[2022-12-17] MEDS: cloNIDine HCL 0.1 MG TABLET PO (21:16)
[2022-12-17] MEDS: traZODone HCL 50 MG TABLET PO (21:16)
[2022-12-18 06:00] VITALS: BP 133/77; PULSE 78; RESP 18; TEMP 36.4; O2SAT 99
[2022-12-18] MEDS: Propranolol HCL LA 80 MG CAP.SA.24H PO (08:45)
[2022-12-18] MEDS: Venlafaxine HCl ER 150 MG CAP.ER.24H PO (08:45)
[2022-12-18] MEDS: Gabapentin 300 MG CAPSULE 600 MG PO ×3 (08:46→21:06)
[2022-12-18] MEDS: Propranolol HCL 10 MG TABLET PO ×4 (08:46→21:06)
[2022-12-18] MEDS: carBAMazepine ER 200 MG TAB.ER.12H PO ×2 (08:46→21:05)
--- NOTE | 2022-12-18 10:23 | HO.PSYCHPN ---
Subjective Subjective Date of Service: 12/18/22 Reason For Visit: Post Traumatic Stress Disorder Interim History: Met with patient; discussed with team Events Assistant ordered clonazepam 0.25 mg given patient's ongoing debilitating anxiety, keeping him from ADLs and participate in the milieu. Patient said he felt much better after the 2nd dose and also said that as he was feeling more calm, he did have any some attic experiences at all leading him to agree that they are only present when he is anxious. And thus, Patient said he did not feel any need for a medical consult. Discussed more history and patient said that on Lexapro he did feel some partial benefit. Discussed medication management and patient agrees to retry Lexapro in addition to titrating clomipramine and instead taper off and discontinue Effexor which provided no benefit despite getting to 225 mg. Discussed history and patient had been treated with Lexapro in the past which was partially helpful as mentioned above. His provider did not male in a script soon enough and patient ended up being without it for a month with return of anxiety. At work he got extremely agitated and directed his frustration at the pharmacist; he made a threatening comment to the head pharmacist and was subsequently fired from his job. This resulted in loss of apartment and car and was the onset of his homelessness. Mental Status Exam Mental Status Exam Narrative: Pt is alert and oriented; behavior is cooperative, but very anxious, going in between interactive in the milieu and isolating; dressed in casual attire; scruffy facial and adequate hygiene; mood is described as anxious and affect congruent; eye contact a little down cast; Speech is normal rate, volume and prosody and not pressured; some psychomotor retardation present; thought process is goal directed; Thought content is preoccupied with anxiety symptoms and somatic experiences; otherwise pertinent to relevant topics and without any delusional content, paranoid ideations or grandiosity; no SI; no HI. There is no evidence of perceptual disturbance. Patients insight and judgment impaired Diagnostics Vital Signs (24Hr): Vital Signs - 24 hr 12/17/22 12:39 12/17/22 16:18 12/18/22 06:00 Temperature 97.1 F 97.8 F 97.6 F Pulse Rate 81 84 78 Respiratory Rate 16 18 18 Blood Pressure 122/80 133/81 133/77 Pulse Oximetry 98 97 99 Oxygen Delivery Method Room Air Room Air Room Air BMI result Body Mass Index 28.8 Labs 12/08/22 07:32 Imaging Radiology Impressions: ITS Impressions Head CT 12/03/22 09:09 IMPRESSION: No acute intracranial pathology. Medications Medications Current Medications Acetaminophen (Acetaminophen 325 Mg Tablet) 650 mg PO Q6H PRN PRN Reason: Headache/Pain Mild Scale (1-3) Last Admin: 12/17/22 14:35 Dose: 650 mg Al Hydroxide/Mg Hydroxide (Magnesium Hydrox/Alum Hydrox 30 Ml Oral.Susp) 30 ml PO Q6H PRN PRN Reason: Heartburn/Nausea Last Admin: 12/08/22 21:42 Dose: 30 ml Benzocaine (Throat Lozenge, Medicated Lozenge) 1 lozenge MUCOUS MEM Q2H PRN PRN Reason: Sore Throat Last Admin: 12/07/22 23:21 Dose: 1 lozenge Carbamazepine (Carbamazepine Er 200 Mg Tab.Er.12h) 200 mg PO BID JAE Last Admin: 12/18/22 08:46 Dose: 200 mg Clomipramine HCl (Clomipramine Hcl 25 Mg Capsule) 25 mg PO BEDTIME JAE Last Admin: 12/17/22 21:16 Dose: 25 mg Clonazepam (Clonazepam 0.125 Mg Tab.Rapdis) 0.25 mg PO BID@0900,1400 JAE Last Admin: 12/18/22 08:44 Dose: 0.25 mg Clonidine HCl (Clonidine Hcl 0.1 Mg Tablet) 0.1 mg PO BEDTIME JAE; Protocol Last Admin: 12/17/22 21:16 Dose: 0.1 mg Clonidine HCl (Clonidine Hcl 0.2 Mg Tablet) 0.2 mg PO Q4H PRN; Protocol PRN Reason: anxiety Last Admin: 12/17/22 19:03 Dose: 0.2 mg Gabapentin (Gabapentin 300 Mg Capsule) 600 mg PO TID JAE Last Admin: 12/18/22 08:46 Dose: 600 mg Gabapentin (Gabapentin 100 Mg Capsule) 200 mg PO BID PRN PRN Reason: anxiety Last Admin: 12/17/22 19:04 Dose: 200 mg Hydroxyzine HCl (Hydroxyzine Hcl 25 Mg Tablet) 25 mg PO Q6H PRN PRN Reason: Anxiety Last Admin: 12/17/22 19:04 Dose: 25 mg Magnesium Hydroxide (Milk Of Magnesia 30 Ml Oral.Susp) 30 ml PO DAILY PRN PRN Reason: Constipation Nicotine (Nicotine 21 Mg Patch.Td24) 21 mg TRANSDERMA DAILY PRN PRN Reason: smoking cessation Last Admin: 12/16/22 09:06 Dose: 21 mg Nicotine Polacrilex (Nicotine Polacrilex 2 Mg Gum) 4 mg BUCCAL Q2H PRN PRN Reason: nicotine cravings Last Admin: 12/17/22 21:16 Dose: 4 mg Propranolol HCl (Propranolol Hcl 10 Mg Tablet) 10 mg PO QID JAE; Protocol Last Admin: 12/18/22 08:46 Dose: 10 mg Propranolol HCl (Propranolol Hcl La 80 Mg Cap.Sa.24h) 80 mg PO DAILY JAE; Protocol Last Admin: 12/18/22 08:45 Dose: 80 mg Trazodone HCl (Trazodone Hcl 50 Mg Tablet) 50 mg PO BEDTIME MRX1 PRN PRN Reason: Insomnia Last Admin: 12/17/22 21:16 Dose: 50 mg Venlafaxine HCl (Venlafaxine Hcl Er 150 Mg Cap.Er.24h) 150 mg PO DAILY JAE Last Admin: 12/18/22 08:45 Dose: 150 mg Allergies Allergies Allergy/AdvReac Type Severity Reaction Status Date / Time amoxicillin Allergy Severe Rash Verified 11/28/22 13:16 cephalexin [From Keflex] Allergy Severe Rash Verified 11/28/22 13:16 Assessment & Plan Assessment & Plan (1) SAWYER (generalized anxiety disorder): Status: Acute Code(s): F41.1 - Generalized anxiety disorder (2) OCD (obsessive compulsive disorder): Status: Suspected Code(s): F42.9 - Obsessive-compulsive disorder, unspecified (3) PTSD (post-traumatic stress disorder): Status: Acute Code(s): F43.10 - Post-traumatic stress disorder, unspecified (4) MDD (major depressive disorder), recurrent severe, without psychosis: Status: Acute Code(s): F33.2 - Major depressive disorder, recurrent severe without psychotic features (5) 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 Patient lives in a tent in the [facility] and has for 3 years. He reports that his anxiety has been worsening over the past few months but especially so the past few weeks. He is not sure why but says that he feels terrified of many different things, a small sound will send him into a panic where he gets sweaty, starts to hyperventilate, the muscles tense, and he starts to feel confused. Patient reports other associated neurological complaints such as being dizzy or having trouble walking but all in the context of panic/anxiety. Patient is clearly very anxious during interview and [place] about very little else. Patient says his anxiety is all the time and that recently he does lied in his tent for 3 days in a row hardly moving, just looking at the ceiling. Patient denies any history of manic episodes; denies AVH; denies alcohol or drug use; patient has passive SI, wishing he were but no intent or plans and no history of attempts. Patient recently at [facility] respite and was started on venlafaxine which he has taken daily and agrees to increase now. Impression: Patient has severe anxiety; will need to explore further and determine if patient has OCD. History of trauma and PTSD symptoms contributory. No obvious psychotic symptoms Hospital course: 12/03 remains very anxious and somatically pre-occupied. c/o irritable edge and asks for Tegretol. Remote possibility that pt could have some mixed manic symptoms but since does not want Trileptal will start Tegretol (which he asks for by name; says Trileptal may have made anxiety worse-though this is thought is quite possibly just product of anxiety). Gabapentin prn for anxiety. Headache is mostly all resolved Head CT unremarkable 12/05 remains very anxious, somatically preoccupied; will increase venlafaxine; will get labs for Tegretol level before increasing. Patient says he has history of intermittent explosive disorder and can get very angry where he breaks and throws things. 12/06 thinks maybe a little less anxious; did get angry but stated control; continue current treatment plan 12/07 still very anxious; will check Tegretol level tomorrow and consider increasing Medical consult called to assess right inner ear pain 12/10 still very debilitated by anxiety; increasing effexor to 150mg and starting propranolol; dc risperdal, feels makes worse 12/11 very anxious; preoccupied with various somatic complaints; change to long acting propranolol which he said was helping; continue on Effexor for now 12/12 some improved perspective is patient himself said that his anxiety seems to manifest itself in physical ways. 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 Regarding complaint of itching, patient's bilirubin, TSH, HA1c all WNL; kidney function WNL; could possibly be side effect from Tegretol, though still seems to be most likely due to physical manifestation of patient's anxiety since sensation seems to dissipate when he is not feeling as anxious 12/16 no change. Would expect some improvement from Effexor at 225 mg; and while it is possible that with longer time or at a higher dose, Effexor could become helpful it seems that there would be some more obvious improvement even if only a little, by this point. And while it seemed that patient had improved some early on, his symptoms remain as pronounced as on admission. Discussed with patient and Will start clomipramine -will likely check for Lyme 12/17 will lower Effexor due to possibility that titration has exacerbated anxiety; will instead focus on clomipramine; adding somatic sensory disorder 12/18 clonazepam 0.25 mg scheduled offering some partial benefit; discussed risk of addiction and that this is only temporary relief which patient understood and agreed to limiting; will restart Lexapro which patient said offered partial benefit in the past during which time he had crippling anxiety as well. Agrees to continue with clomipramine and taper and likely DC Effexor. Would also like to get off gabapentin but considering holding off on that. Plan: CV Q 15 minute checks? Restart Lexapro tomorrow Continue Clomipramine 25mg qhs for OCD/SAWYER symptoms; will titrate Starting clonazepam 0.25 mg t.i.d. for relief of stye flaying anxiety and panic attacks while medication management continues Continue Tegretol XR 200 mg b.i.d.; since patient reports agitated, irritable edge to his anxiety Tegretol level: WNL Lower to venlafaxine ER to 150 mg daily for treatment for OCD/SAWYER Added propranolol immediate release 10 mg q.i.d. Continue Propranolol LA 60mg daily; may increase Continue gabapentin 600 mg t.i.d.; reviewed risks side effects; will likely taper and discontinue Continue clonidine 0.2 mg q.4h p.r.n. for anxiety (bp stable) and 0.1 mg scheduled q.h.s. for trouble sleeping DC Zyprexa patient feels combination of sedating into agitating DC Trileptal dc'd risperdal hx: Discussed history and patient had been treated with Lexapro in the past which was partially helpful as mentioned above. His provider did not male in a script soon enough and patient ended up being without it for a month with return of anxiety. At work he got extremely agitated and directed his frustration at the pharmacist; he made a threatening comment to the head pharmacist and was subsequently fired from his job. This resulted in loss of apartment and car and was the onset of his homelessness. Patient educated on: diagnosis and medication risk/benefits Informed Consent: understands Reason for continued inpatient stay Substantial Risk for: inability to function Time Spent With Patient Time: Total time managing care of this patient today ____ minutes.
[2022-12-18] MEDS: Gabapentin 100 MG CAPSULE 200 MG PO (12:04)
[2022-12-18] MEDS: hydrOXYzine HCL 25 MG TABLET PO ×2 (12:05→18:08)
[2022-12-18] MEDS: Throat Lozenge, Medicated LOZENGE 1 LOZENGE MUCOUS MEM (12:05)
[2022-12-18] MEDS: Nicotine Polacrilex 2 MG GUM 4 MG BUCCAL ×4 (12:06→21:16)
[2022-12-18] MEDS: Ibuprofen 600 MG TABLET PO (14:52)
[2022-12-18] MEDS: cloNIDine HCL 0.2 MG TABLET PO (14:52)
[2022-12-18 17:04] VITALS: BP 115/72; PULSE 82; RESP 16; TEMP 36.4; O2SAT 98
[2022-12-18] MEDS: traZODone HCL 50 MG TABLET PO (21:06)
[2022-12-18] MEDS: clomiPRAMINE HCl 25 MG CAPSULE PO (21:06)
[2022-12-18] MEDS: cloNIDine HCL 0.1 MG TABLET PO (21:06)
[2022-12-18] MEDS: Acetaminophen 325 MG TABLET 650 MG PO (21:07)
[2022-12-19 08:30] VITALS: BP 121/69; PULSE 78; RESP 18; TEMP 36.1; O2SAT 100
[2022-12-19] MEDS: Gabapentin 300 MG CAPSULE 600 MG PO ×3 (08:54→21:08)
[2022-12-19] MEDS: Propranolol HCL LA 80 MG CAP.SA.24H PO (08:55)
[2022-12-19] MEDS: Propranolol HCL 10 MG TABLET PO ×4 (08:55→21:07)
[2022-12-19] MEDS: Venlafaxine HCl ER 150 MG CAP.ER.24H PO (08:55)
[2022-12-19] MEDS: carBAMazepine ER 200 MG TAB.ER.12H PO ×2 (08:56→21:07)
[2022-12-19] MEDS: Escitalopram Oxalate 5 MG TABLET PO (11:05)
[2022-12-19] MEDS: Nicotine 21 MG PATCH.TD24 TRANSDERMA (11:08)
[2022-12-19] MEDS: Gabapentin 100 MG CAPSULE 200 MG PO ×2 (11:08→19:15)
[2022-12-19] MEDS: Ibuprofen 600 MG TABLET PO ×2 (11:08→21:07)
[2022-12-19] MEDS: hydrOXYzine HCL 25 MG TABLET PO ×2 (11:08→17:52)
[2022-12-19] MEDS: cloNIDine HCL 0.2 MG TABLET PO (11:09)
[2022-12-19] MEDS: Nicotine Polacrilex 2 MG GUM 4 MG BUCCAL ×3 (11:09→21:16)
[2022-12-19 12:05] VITALS: BP 130/82; PULSE 85
--- NOTE | 2022-12-19 12:54 | HO.PSYCHPN ---
Subjective Subjective Date of Service: 12/19/22 Reason For Visit: Post Traumatic Stress Disorder Interim History: Met with patient; discussed with team Remains with debilitating anxiety make it difficult for him to interact with others. Patient continues to agree with plan and took Lexapro today. Will hold off lowering gabapentin at this time. Will continue to taper off Effexor Mental Status Exam Mental Status Exam Narrative: Pt is alert and oriented; behavior is cooperative, but very anxious, going in between interactive in the milieu and isolating; dressed in casual attire; scruffy facial and adequate hygiene; mood is described as anxious and affect congruent; eye contact a little down cast; Speech is normal rate, volume and prosody and not pressured; some psychomotor retardation present; thought process is goal directed; Thought content is preoccupied with anxiety symptoms and somatic experiences; otherwise pertinent to relevant topics and without any delusional content, paranoid ideations or grandiosity; no SI; no HI. There is no evidence of perceptual disturbance. Patients insight and judgment impaired Diagnostics Vital Signs (24Hr): Vital Signs - 24 hr 12/18/22 17:04 12/19/22 08:30 12/19/22 12:05 Temperature 97.6 F 97.0 F Pulse Rate 82 78 85 Respiratory Rate 16 18 Blood Pressure 115/72 121/69 130/82 Pulse Oximetry 98 100 Oxygen Delivery Method Room Air Room Air BMI result Body Mass Index 28.8 Labs 12/08/22 07:32 Imaging Radiology Impressions: ITS Impressions Head CT 12/03/22 09:09 IMPRESSION: No acute intracranial pathology. Medications Medications Current Medications Acetaminophen (Acetaminophen 325 Mg Tablet) 650 mg PO Q6H PRN PRN Reason: Headache/Pain Mild Scale (1-3) Last Admin: 12/18/22 21:07 Dose: 650 mg Al Hydroxide/Mg Hydroxide (Magnesium Hydrox/Alum Hydrox 30 Ml Oral.Susp) 30 ml PO Q6H PRN PRN Reason: Heartburn/Nausea Last Admin: 12/08/22 21:42 Dose: 30 ml Benzocaine (Throat Lozenge, Medicated Lozenge) 1 lozenge MUCOUS MEM Q2H PRN PRN Reason: Sore Throat Last Admin: 12/18/22 12:05 Dose: 1 lozenge Carbamazepine (Carbamazepine Er 200 Mg Tab.Er.12h) 200 mg PO BID JAE Last Admin: 12/19/22 08:56 Dose: 200 mg Clomipramine HCl (Clomipramine Hcl 25 Mg Capsule) 25 mg PO BEDTIME JAE Last Admin: 12/18/22 21:06 Dose: 25 mg Clonazepam (Clonazepam 0.125 Mg Tab.Rapdis) 0.25 mg PO TID@0900,1300,1700 JAE Last Admin: 12/19/22 08:55 Dose: 0.25 mg Clonidine HCl (Clonidine Hcl 0.1 Mg Tablet) 0.1 mg PO BEDTIME JAE; Protocol Last Admin: 12/18/22 21:06 Dose: 0.1 mg Clonidine HCl (Clonidine Hcl 0.2 Mg Tablet) 0.2 mg PO Q4H PRN; Protocol PRN Reason: anxiety Last Admin: 12/19/22 11:09 Dose: 0.2 mg Escitalopram Oxalate (Escitalopram Oxalate 10 Mg Tablet) 10 mg PO DAILY JAE Gabapentin (Gabapentin 100 Mg Capsule) 200 mg PO BID PRN PRN Reason: anxiety Last Admin: 12/19/22 11:08 Dose: 200 mg Gabapentin (Gabapentin 300 Mg Capsule) 600 mg PO TID JAE Hydroxyzine HCl (Hydroxyzine Hcl 25 Mg Tablet) 25 mg PO Q6H PRN PRN Reason: Anxiety Last Admin: 12/19/22 11:08 Dose: 25 mg Ibuprofen (Ibuprofen 600 Mg Tablet) 600 mg PO Q8H PRN PRN Reason: Pain, Mild (Pain Scale 1-3) Last Admin: 12/19/22 11:08 Dose: 600 mg Magnesium Hydroxide (Milk Of Magnesia 30 Ml Oral.Susp) 30 ml PO DAILY PRN PRN Reason: Constipation Nicotine (Nicotine 21 Mg Patch.Td24) 21 mg TRANSDERMA DAILY PRN PRN Reason: smoking cessation Last Admin: 12/19/22 11:08 Dose: 21 mg Nicotine Polacrilex (Nicotine Polacrilex 2 Mg Gum) 4 mg BUCCAL Q2H PRN PRN Reason: nicotine cravings Last Admin: 12/19/22 11:09 Dose: 4 mg Propranolol HCl (Propranolol Hcl 10 Mg Tablet) 10 mg PO QID [facility]; Protocol Last Admin: 12/19/22 08:55 Dose: 10 mg Propranolol HCl (Propranolol Hcl La 80 Mg Cap.Sa.24h) 80 mg PO DAILY [facility]; Protocol Last Admin: 12/19/22 08:55 Dose: 80 mg Trazodone HCl (Trazodone Hcl 50 Mg Tablet) 50 mg PO BEDTIME MRX1 PRN PRN Reason: Insomnia Last Admin: 12/18/22 21:06 Dose: 50 mg Venlafaxine HCl (Venlafaxine Hcl Er 37.5 Mg Cap.Er.24h) 112.5 mg PO DAILY JAE Allergies Allergies Allergy/AdvReac Type Severity Reaction Status Date / Time amoxicillin Allergy Severe Rash Verified 11/28/22 13:16 cephalexin [From Keflex] Allergy Severe Rash Verified 11/28/22 13:16 Assessment & Plan Assessment & Plan (1) SAWYER (generalized anxiety disorder): Status: Acute Code(s): F41.1 - Generalized anxiety disorder (2) OCD (obsessive compulsive disorder): Status: Suspected Code(s): F42.9 - Obsessive-compulsive disorder, unspecified (3) PTSD (post-traumatic stress disorder): Status: Acute Code(s): F43.10 - Post-traumatic stress disorder, unspecified (4) MDD (major depressive disorder), recurrent severe, without psychosis: Status: Acute Code(s): F33.2 - Major depressive disorder, recurrent severe without psychotic features (5) 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 Patient lives in a tent in the [facility] [place] and has for 3 years. He reports that his anxiety has been worsening over the past few months but especially so the past few weeks. He is not sure why but says that he feels terrified of many different things, a small sound will send him into a panic where he gets sweaty, starts to hyperventilate, the muscles tense, and he starts to feel confused. Patient reports other associated neurological complaints such as being dizzy or having trouble walking but all in the context of panic/anxiety. Patient is clearly very anxious during interview and [place] about very little else. Patient says his anxiety is all the time and that recently he does lied in his tent for 3 days in a row hardly moving, just looking at the ceiling. Patient denies any history of manic episodes; denies AVH; denies alcohol or drug use; patient has passive SI, wishing he were but no intent or plans and no history of attempts. Patient recently at [facility] respite and was started on venlafaxine which he has taken daily and agrees to increase now. Impression: Patient has severe anxiety; will need to explore further and determine if patient has OCD. History of trauma and PTSD symptoms contributory. No obvious psychotic symptoms Hospital course: 12/03 remains very anxious and somatically pre-occupied. c/o irritable edge and asks for Tegretol. Remote possibility that pt could have some mixed manic symptoms but since does not want Trileptal will start Tegretol (which he asks for by name; says Trileptal may have made anxiety worse-though this is thought is quite possibly just product of anxiety). Gabapentin prn for anxiety. Headache is mostly all resolved Head CT unremarkable 12/05 remains very anxious, somatically preoccupied; will increase venlafaxine; will get labs for Tegretol level before increasing. Patient says he has history of intermittent explosive disorder and can get very angry where he breaks and throws things. 12/06 thinks maybe a little less anxious; did get angry but stated control; continue current treatment plan 12/07 still very anxious; will check Tegretol level tomorrow and consider increasing Medical consult called to assess right inner ear pain 12/10 still very debilitated by anxiety; increasing effexor to 150mg and starting propranolol; dc risperdal, feels makes worse 12/11 very anxious; preoccupied with various somatic complaints; change to long acting propranolol which he said was helping; continue on Effexor for now 12/12 some improved perspective is patient himself said that his anxiety seems to manifest itself in physical ways. 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 Regarding complaint of itching, patient's bilirubin, TSH, HA1c all WNL; kidney function WNL; could possibly be side effect from Tegretol, though still seems to be most likely due to physical manifestation of patient's anxiety since sensation seems to dissipate when he is not feeling as anxious 12/16 no change. Would expect some improvement from Effexor at 225 mg; and while it is possible that with longer time or at a higher dose, Effexor could become helpful it seems that there would be some more obvious improvement even if only a little, by this point. And while it seemed that patient had improved some early on, his symptoms remain as pronounced as on admission. Discussed with patient and Will start clomipramine -will likely check for Lyme 12/17 will lower Effexor due to possibility that titration has exacerbated anxiety; will instead focus on clomipramine; adding somatic sensory disorder 12/18 clonazepam 0.25 mg scheduled offering some partial benefit; discussed risk of addiction and that this is only temporary relief which patient understood and agreed to limiting; will restart Lexapro which patient said offered partial benefit in the past during which time he had crippling anxiety as well. Agrees to continue with clomipramine and taper and likely DC Effexor. Would also like to get off gabapentin but considering holding off on that. Plan: CV Q 15 minute checks? Ordered Lyme test IgG/IgM with reflex Western blot; patient has been living in the [facility] for [facility] years and concerned that some of his somatic complaints may be due to Lyme disease start Lexapro 5 mg today and 10 mg starting tomorrow Continue Clomipramine 25mg qhs for OCD/SAWYER symptoms; will titrate Continue clonazepam 0.25 mg t.i.d. for relief of stye flaying anxiety and panic attacks while medication management continues Continue Tegretol XR 200 mg b.i.d.; since patient reports agitated, irritable edge to his anxiety Tegretol level: WNL Further Lower to venlafaxine ER to 112.5 mg; likely taper and DC Added propranolol immediate release 10 mg q.i.d. Continue Propranolol LA 60mg daily; may increase Continue gabapentin 600 mg t.i.d.; reviewed risks side effects; will likely taper and discontinue Continue clonidine 0.2 mg q.4h p.r.n. for anxiety (bp stable) and 0.1 mg scheduled q.h.s. for trouble sleeping DC Zyprexa patient feels combination of sedating into agitating DC Trileptal dc'd risperdal hx: Discussed history and patient had been treated with Lexapro in the past which was partially helpful as mentioned above. His provider did not male in a script soon enough and patient ended up being without it for a month with return of anxiety. At work he got extremely agitated and directed his frustration at the pharmacist; he made a threatening comment to the head pharmacist and was subsequently fired from his job. This resulted in loss of apartment and car and was the onset of his homelessness. Patient educated on: diagnosis and medication risk/benefits Informed Consent: understands Reason for continued inpatient stay Substantial Risk for: inability to function Time Spent With Patient Time: Total time managing care of this patient today ____ minutes.
[2022-12-19] MEDS: Acetaminophen 325 MG TABLET 650 MG PO (17:51)
[2022-12-19 18:00] VITALS: BP 113/70; PULSE 80; RESP 18; TEMP 36.7; O2SAT 97
[2022-12-19] MEDS: clomiPRAMINE HCl 25 MG CAPSULE PO (21:07)
[2022-12-19] MEDS: cloNIDine HCL 0.1 MG TABLET PO (21:07)
[2022-12-19] MEDS: traZODone HCL 50 MG TABLET PO (21:08)
[2022-12-20 07:00] VITALS: BMI 29.2
[2022-12-20 08:25] VITALS: BP 124/68; PULSE 71; RESP 18; TEMP 36.2; O2SAT 98
[2022-12-20] MEDS: Venlafaxine HCl ER 37.5 MG CAP.ER.24H 112.5 MG PO (09:05)
[2022-12-20] MEDS: Gabapentin 300 MG CAPSULE 600 MG PO ×3 (09:05→21:06)
[2022-12-20] MEDS: Propranolol HCL LA 80 MG CAP.SA.24H PO (09:05)
[2022-12-20] MEDS: Propranolol HCL 10 MG TABLET PO (09:07)
[2022-12-20] MEDS: carBAMazepine ER 200 MG TAB.ER.12H PO ×2 (09:07→21:06)
[2022-12-20] MEDS: Escitalopram Oxalate 10 MG TABLET PO (09:07)
[2022-12-20] MEDS: Nicotine Polacrilex 2 MG GUM 4 MG BUCCAL ×5 (09:08→21:14)
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
[2022-12-20] MEDS: Gabapentin 100 MG CAPSULE 200 MG PO (11:24)
[2022-12-20] MEDS: hydrOXYzine HCL 25 MG TABLET PO ×2 (11:24→21:13)
[2022-12-20] MEDS: cloNIDine HCL 0.2 MG TABLET PO (11:24)
[2022-12-20] MEDS: Nicotine 21 MG PATCH.TD24 TRANSDERMA (11:25)
[2022-12-20] MEDS: Ibuprofen 600 MG TABLET PO (11:26)
[2022-12-20 16:12] VITALS: BP 113/68; PULSE 84; RESP 18; TEMP 37; O2SAT 97
[2022-12-20] MEDS: clomiPRAMINE HCl 25 MG CAPSULE PO (21:05)
[2022-12-20] MEDS: cloNIDine HCL 0.1 MG TABLET PO (21:06)
[2022-12-20] MEDS: traZODone HCL 50 MG TABLET PO (21:12)
[2022-12-20] MEDS: Miconazole Nitrate 2% Oint 57 GM OINT...G. 1 APPL TOPICAL (21:58)
[2022-12-21 09:05] VITALS: BP 132/65; PULSE 89; RESP 16; TEMP 36.4; O2SAT 96
[2022-12-21] MEDS: Propranolol HCL LA 60 MG CAP.SA.24H 120 MG PO (09:08)
[2022-12-21] MEDS: Escitalopram Oxalate 20 MG TABLET PO (09:08)
[2022-12-21] MEDS: Venlafaxine HCl ER 75 MG CAP.ER.24H PO (09:09)
[2022-12-21] MEDS: clonazePAM 0.5 MG TABLET PO ×2 (09:09→13:07)
[2022-12-21] MEDS: carBAMazepine ER 200 MG TAB.ER.12H PO ×2 (09:09→21:25)
[2022-12-21] MEDS: Gabapentin 300 MG CAPSULE 600 MG PO ×3 (09:09→21:25)
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
[2022-12-21] MEDS: Cyproheptadine HCl 4 MG TABLET 8 MG PO (10:55)
[2022-12-21 13:47] LABS: Lyme Abs Screen <0.90 index
[2022-12-21] MEDS: hydrOXYzine HCL 25 MG TABLET PO ×2 (14:21→21:25)
[2022-12-21] MEDS: cloNIDine HCL 0.2 MG TABLET PO (14:21)
[2022-12-21] MEDS: Ibuprofen 600 MG TABLET PO (14:29)
[2022-12-21] MEDS: Nicotine Polacrilex 2 MG GUM 4 MG BUCCAL ×2 (14:43→21:24)
[2022-12-21 18:00] VITALS: BP 105/59; PULSE 83; TEMP 36.6; O2SAT 98
[2022-12-21] MEDS: cloNIDine HCL 0.1 MG TABLET PO (21:24)
[2022-12-21] MEDS: clomiPRAMINE HCl 25 MG CAPSULE PO (21:24)
[2022-12-21] MEDS: traZODone HCL 50 MG TABLET PO (21:38)
[2022-12-22 08:05] VITALS: BP 127/80; PULSE 73; RESP 20; TEMP 36.6; O2SAT 99
[2022-12-22] MEDS: Gabapentin 300 MG CAPSULE 600 MG PO ×3 (08:38→21:08)
[2022-12-22] MEDS: Escitalopram Oxalate 20 MG TABLET PO (08:38)
[2022-12-22] MEDS: clonazePAM 0.5 MG TABLET PO ×2 (08:39→12:46)
[2022-12-22] MEDS: Venlafaxine HCl ER 37.5 MG CAP.ER.24H PO (08:39)
[2022-12-22] MEDS: Propranolol HCL LA 60 MG CAP.SA.24H 120 MG PO (08:39)
[2022-12-22] MEDS: carBAMazepine ER 200 MG TAB.ER.12H PO ×2 (08:39→21:09)
[2022-12-22] MEDS: Nicotine Polacrilex 2 MG GUM 4 MG BUCCAL ×4 (10:10→21:08)
[2022-12-22] MEDS: Nicotine 21 MG PATCH.TD24 TRANSDERMA (10:10)
[2022-12-22] MEDS: Gabapentin 100 MG CAPSULE 200 MG PO (12:46)
[2022-12-22] MEDS: cloNIDine HCL 0.2 MG TABLET PO (14:38)
[2022-12-22] MEDS: hydrOXYzine HCL 25 MG TABLET PO ×2 (14:38→21:08)
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
[2022-12-22] MEDS: cloNIDine HCL 0.1 MG TABLET PO (21:07)
[2022-12-22] MEDS: traZODone HCL 50 MG TABLET PO (21:08)
[2022-12-22] MEDS: Mirtazapine 7.5 MG TABLET PO (21:08)
[2022-12-22] MEDS: clomiPRAMINE HCl 25 MG CAPSULE PO (21:08)
[2022-12-22 21:10] VITALS: BP 117/59; PULSE 84; TEMP 36.4
[2022-12-23 06:00] VITALS: BP 121/76; PULSE 75; RESP 18; TEMP 36.4; O2SAT 99
[2022-12-23] MEDS: Nicotine 21 MG PATCH.TD24 TRANSDERMA (08:59)
[2022-12-23] MEDS: Propranolol HCL LA 60 MG CAP.SA.24H 120 MG PO (09:00)
[2022-12-23] MEDS: Venlafaxine HCl ER 37.5 MG CAP.ER.24H PO (09:01)
[2022-12-23] MEDS: Escitalopram Oxalate 20 MG TABLET PO (09:01)
[2022-12-23] MEDS: Gabapentin 300 MG CAPSULE 600 MG PO ×3 (09:01→20:34)
[2022-12-23] MEDS: carBAMazepine ER 200 MG TAB.ER.12H PO ×2 (09:02→20:34)
[2022-12-23] MEDS: clonazePAM 0.5 MG TABLET PO ×2 (09:02→12:16)
[2022-12-23] MEDS: Nicotine Polacrilex 2 MG GUM 4 MG BUCCAL ×4 (09:06→20:36)
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
[2022-12-23] MEDS: Gabapentin 100 MG CAPSULE 200 MG PO (12:15)
[2022-12-23] MEDS: Ibuprofen 600 MG TABLET PO (12:15)
[2022-12-23] MEDS: hydrOXYzine HCL 25 MG TABLET PO ×2 (12:16→20:34)
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
[2022-12-23 17:39] VITALS: BP 122/69; PULSE 88; RESP 16; TEMP 36.8; O2SAT 98
[2022-12-23] MEDS: cloNIDine HCL 0.2 MG TABLET PO (20:34)
[2022-12-23] MEDS: clomiPRAMINE HCl 25 MG CAPSULE PO (20:34)
[2022-12-23] MEDS: cloNIDine HCL 0.1 MG TABLET PO (20:34)
[2022-12-23] MEDS: Mirtazapine 15 MG TABLET PO (20:34)
[2022-12-23] MEDS: traZODone HCL 50 MG TABLET PO ×2 (20:35→22:20)
[2022-12-24 06:00] VITALS: BP 117/69; PULSE 68; RESP 16; TEMP 36.4; O2SAT 98
[2022-12-24] MEDS: Gabapentin 300 MG CAPSULE 600 MG PO ×3 (08:42→21:11)
[2022-12-24] MEDS: Propranolol HCL LA 60 MG CAP.SA.24H 120 MG PO (08:42)
[2022-12-24] MEDS: clonazePAM 0.5 MG TABLET PO ×2 (08:42→14:30)
[2022-12-24] MEDS: Venlafaxine HCl ER 37.5 MG CAP.ER.24H PO (08:42)
[2022-12-24] MEDS: Escitalopram Oxalate 20 MG TABLET PO (08:42)
[2022-12-24] MEDS: carBAMazepine ER 200 MG TAB.ER.12H PO ×2 (08:42→21:11)
[2022-12-24] MEDS: Nicotine Polacrilex 2 MG GUM 4 MG BUCCAL ×3 (08:50→20:13)
[2022-12-24] MEDS: hydrOXYzine HCL 25 MG TABLET PO ×3 (08:50→21:12)
[2022-12-24] MEDS: Nicotine 21 MG PATCH.TD24 TRANSDERMA (08:50)
[2022-12-24] MEDS: Miconazole Nitrate 2% Oint 57 GM OINT...G. 1 APPL TOPICAL (08:55)
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
[2022-12-24] MEDS: cloNIDine HCL 0.2 MG TABLET PO ×2 (14:29→19:28)
[2022-12-24 18:00] VITALS: BP 136/78; PULSE 78; TEMP 36.7; O2SAT 95
[2022-12-24] MEDS: Gabapentin 100 MG CAPSULE 200 MG PO (19:28)
[2022-12-24] MEDS: clomiPRAMINE HCl 25 MG CAPSULE PO (21:11)
[2022-12-24] MEDS: cloNIDine HCL 0.1 MG TABLET PO (21:11)
[2022-12-24] MEDS: traZODone HCL 50 MG TABLET PO (21:12)
[2022-12-24] MEDS: Mirtazapine 15 MG TABLET PO (21:12)
--- NOTE | 2022-12-25 00:26 | PC.NURSE ---
Patient was given Klonopin 0.125 and this signwriter went back to the [facility] to get the other pill. The Pyxsis showed 0 because if the original 2 pills were removed the count would be O . Discrepancy was created and the patient was told he would get the second pill after discrepancy was fixed. Patient asleep by the time this signwriter was able to get discrepancy evaluated.
[2022-12-25] MEDS: Propranolol HCL LA 60 MG CAP.SA.24H 120 MG PO (09:55)
[2022-12-25] MEDS: clonazePAM 0.5 MG TABLET PO ×2 (09:55→12:41)
[2022-12-25] MEDS: Miconazole Nitrate 2% Oint 57 GM OINT...G. 1 APPL TOPICAL (09:55)
[2022-12-25] MEDS: carBAMazepine ER 200 MG TAB.ER.12H PO ×2 (09:55→21:04)
[2022-12-25] MEDS: Gabapentin 300 MG CAPSULE 600 MG PO ×3 (09:55→21:04)
[2022-12-25] MEDS: Venlafaxine HCl ER 37.5 MG CAP.ER.24H PO (09:56)
[2022-12-25] MEDS: Escitalopram Oxalate 20 MG TABLET PO (09:56)
[2022-12-25] MEDS: Nicotine 21 MG PATCH.TD24 TRANSDERMA (10:03)
[2022-12-25] MEDS: Nicotine Polacrilex 2 MG GUM 4 MG BUCCAL ×3 (10:03→21:11)
[2022-12-25 10:28] VITALS: BP 115/65; PULSE 87; RESP 16; TEMP 36.5; O2SAT 97
[2022-12-25] MEDS: Ibuprofen 600 MG TABLET PO (12:44)
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
[2022-12-25 16:25] VITALS: BP 113/71; PULSE 78; TEMP 35.9
[2022-12-25] MEDS: Acetaminophen 325 MG TABLET 650 MG PO (16:25)
[2022-12-25] MEDS: cloNIDine HCL 0.2 MG TABLET PO (16:28)
[2022-12-25] MEDS: hydrOXYzine HCL 25 MG TABLET PO (16:28)
[2022-12-25] MEDS: clomiPRAMINE HCl 25 MG CAPSULE PO (21:03)
[2022-12-25] MEDS: cloNIDine HCL 0.1 MG TABLET PO (21:05)
[2022-12-25] MEDS: Mirtazapine 30 MG TABLET PO (21:05)
[2022-12-25] MEDS: traZODone HCL 50 MG TABLET PO (21:12)
[2022-12-26 09:30] VITALS: BP 134/71; PULSE 79; RESP 16; TEMP 36.2; O2SAT 97
[2022-12-26] MEDS: Escitalopram Oxalate 20 MG TABLET PO (09:39)
[2022-12-26] MEDS: Gabapentin 300 MG CAPSULE 600 MG PO ×3 (09:39→22:46)
[2022-12-26] MEDS: clonazePAM 0.5 MG TABLET PO ×2 (09:39→12:55)
[2022-12-26] MEDS: Propranolol HCL LA 60 MG CAP.SA.24H 120 MG PO (09:39)
[2022-12-26] MEDS: carBAMazepine ER 200 MG TAB.ER.12H PO ×2 (09:39→22:46)
[2022-12-26] MEDS: Nicotine 21 MG PATCH.TD24 TRANSDERMA (09:47)
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
[2022-12-26] MEDS: Nicotine Polacrilex 2 MG GUM 4 MG BUCCAL ×4 (12:56→22:49)
[2022-12-26] MEDS: cloNIDine HCL 0.2 MG TABLET PO ×2 (14:42→18:50)
[2022-12-26] MEDS: hydrOXYzine HCL 25 MG TABLET PO ×2 (14:42→22:47)
[2022-12-26 18:42] VITALS: BP 125/75; PULSE 88; RESP 18; TEMP 36.6; O2SAT 95
[2022-12-26] MEDS: Gabapentin 100 MG CAPSULE 200 MG PO (18:47)
[2022-12-26 22:45] VITALS: BP 111/69; PULSE 79; RESP 18; TEMP 36.3; O2SAT 99
[2022-12-26] MEDS: Mirtazapine 30 MG TABLET PO (22:46)
[2022-12-26] MEDS: traZODone HCL 50 MG TABLET PO (22:46)
[2022-12-26] MEDS: clomiPRAMINE HCl 25 MG CAPSULE PO (22:46)
[2022-12-26] MEDS: cloNIDine HCL 0.1 MG TABLET PO (22:46)
[2022-12-27 07:00] VITALS: BMI 30.3
[2022-12-27] MEDS: Propranolol HCL LA 60 MG CAP.SA.24H 120 MG PO (09:19)
[2022-12-27] MEDS: clonazePAM 0.5 MG TABLET PO ×2 (09:19→13:15)
[2022-12-27] MEDS: Gabapentin 300 MG CAPSULE 600 MG PO ×3 (09:19→21:40)
[2022-12-27] MEDS: carBAMazepine ER 200 MG TAB.ER.12H PO ×2 (09:19→21:15)
[2022-12-27] MEDS: Escitalopram Oxalate 20 MG TABLET PO (09:19)
[2022-12-27 09:23] VITALS: BP 126/65; PULSE 80; RESP 16; TEMP 36.5; O2SAT 96
[2022-12-27] MEDS: Miconazole Nitrate 2% Oint 57 GM OINT...G. 1 APPL TOPICAL (09:25)
[2022-12-27] MEDS: Nicotine Polacrilex 2 MG GUM 4 MG BUCCAL ×4 (09:27→21:16)
[2022-12-27] MEDS: Nicotine 21 MG PATCH.TD24 TRANSDERMA (09:27)
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
[2022-12-27] MEDS: cloNIDine HCL 0.2 MG TABLET PO ×2 (13:14→18:33)
[2022-12-27] MEDS: hydrOXYzine HCL 25 MG TABLET PO ×2 (13:14→21:15)
[2022-12-27] MEDS: Gabapentin 100 MG CAPSULE 200 MG PO ×2 (13:15→18:33)
[2022-12-27] MEDS: Acetaminophen 325 MG TABLET 650 MG PO (18:32)
[2022-12-27] MEDS: Ibuprofen 600 MG TABLET PO (18:33)
[2022-12-27 21:15] VITALS: BP 105/71; PULSE 92; TEMP 36.4; O2SAT 97
[2022-12-27] MEDS: clomiPRAMINE HCl 25 MG CAPSULE PO (21:15)
[2022-12-27] MEDS: cloNIDine HCL 0.1 MG TABLET PO (21:15)
[2022-12-27] MEDS: Mirtazapine 30 MG TABLET PO (21:15)
[2022-12-27] MEDS: traZODone HCL 50 MG TABLET PO (21:16)
[2022-12-28 08:27] VITALS: BP 137/92; PULSE 76; RESP 16; TEMP 36.9; O2SAT 99
[2022-12-28] MEDS: carBAMazepine ER 200 MG TAB.ER.12H PO ×2 (08:29→20:10)
[2022-12-28] MEDS: clonazePAM 0.5 MG TABLET PO ×2 (08:29→13:29)
[2022-12-28] MEDS: Propranolol HCL LA 60 MG CAP.SA.24H 120 MG PO (08:29)
[2022-12-28] MEDS: Gabapentin 400 MG CAPSULE PO ×3 (08:29→20:09)
[2022-12-28] MEDS: Escitalopram Oxalate 20 MG TABLET PO (08:29)
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
[2022-12-28] MEDS: Nicotine Polacrilex 2 MG GUM 4 MG BUCCAL ×4 (09:32→20:09)
[2022-12-28] MEDS: Nicotine 21 MG PATCH.TD24 TRANSDERMA (09:32)
[2022-12-28] MEDS: hydrOXYzine HCL 25 MG TABLET PO ×2 (14:52→20:10)
[2022-12-28] MEDS: cloNIDine HCL 0.2 MG TABLET PO (14:52)
[2022-12-28] MEDS: Gabapentin 100 MG CAPSULE 200 MG PO (16:35)
[2022-12-28] MEDS: Propranolol HCL 10 MG TABLET PO (17:48)
[2022-12-28 20:01] VITALS: BP 139/83; PULSE 92; TEMP 36.6
[2022-12-28] MEDS: clomiPRAMINE HCl 25 MG CAPSULE PO (20:09)
[2022-12-28] MEDS: Acetaminophen 325 MG TABLET 650 MG PO (20:09)
[2022-12-28] MEDS: cloNIDine HCL 0.1 MG TABLET PO (20:10)
[2022-12-28] MEDS: Mirtazapine 30 MG TABLET PO (20:10)
[2022-12-28] MEDS: Ibuprofen 600 MG TABLET PO (20:10)
[2022-12-28] MEDS: traZODone HCL 50 MG TABLET PO (20:10)
[2022-12-29 08:20] VITALS: BP 136/79; PULSE 89; RESP 16; TEMP 36.3; O2SAT 95
[2022-12-29] MEDS: Propranolol HCL LA 60 MG CAP.SA.24H 120 MG PO (09:23)
[2022-12-29] MEDS: clonazePAM 0.5 MG TABLET PO ×3 (09:24→19:49)
[2022-12-29] MEDS: Nicotine 21 MG PATCH.TD24 TRANSDERMA (09:24)
[2022-12-29] MEDS: Escitalopram Oxalate 20 MG TABLET PO (09:24)
[2022-12-29] MEDS: carBAMazepine ER 200 MG TAB.ER.12H PO ×2 (09:24→19:49)
[2022-12-29] MEDS: Nicotine Polacrilex 2 MG GUM 4 MG BUCCAL ×4 (09:24→19:53)
[2022-12-29] MEDS: Gabapentin 400 MG CAPSULE PO ×3 (09:24→19:49)
[2022-12-29 09:58] VITALS: BP 153/79; PULSE 93
[2022-12-29] MEDS: Propranolol HCL 10 MG TABLET PO ×3 (10:05→17:17)
[2022-12-29] MEDS: cloNIDine HCL 0.2 MG TABLET PO ×3 (10:05→19:49)
[2022-12-29] MEDS: Gabapentin 100 MG CAPSULE 200 MG PO ×2 (10:05→16:13)
[2022-12-29] MEDS: hydrOXYzine HCL 25 MG TABLET PO ×2 (10:05→16:13)
[2022-12-29] MEDS: Miconazole Nitrate 2% Oint 57 GM OINT...G. 1 APPL TOPICAL (10:05)
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
[2022-12-29 13:16] VITALS: BP 117/63; PULSE 88
[2022-12-29 18:00] VITALS: BP 111/73; PULSE 86; TEMP 36.2; O2SAT 96
[2022-12-29] MEDS: Ibuprofen 600 MG TABLET PO (19:48)
[2022-12-29] MEDS: traZODone HCL 50 MG TABLET PO (19:49)
[2022-12-29] MEDS: Acetaminophen 325 MG TABLET 650 MG PO (19:49)
[2022-12-29] MEDS: Mirtazapine 30 MG TABLET PO (19:49)
[2022-12-29] MEDS: clomiPRAMINE HCl 25 MG CAPSULE PO (19:49)
[2022-12-29] MEDS: cloNIDine HCL 0.1 MG TABLET PO (19:50)
[2022-12-29 21:23] VITALS: BP 117/75; PULSE 85; RESP 18; TEMP 36.7; O2SAT 96
[2022-12-30] MEDS: Gabapentin 400 MG CAPSULE PO ×3 (09:17→21:35)
[2022-12-30] MEDS: Propranolol HCL LA 60 MG CAP.SA.24H 120 MG PO (09:17)
[2022-12-30] MEDS: Nicotine Polacrilex 2 MG GUM 4 MG BUCCAL ×5 (09:17→21:35)
[2022-12-30] MEDS: Escitalopram Oxalate 20 MG TABLET PO (09:17)
[2022-12-30] MEDS: carBAMazepine ER 200 MG TAB.ER.12H PO ×2 (09:17→21:36)
[2022-12-30] MEDS: Nicotine 21 MG PATCH.TD24 TRANSDERMA (09:17)
[2022-12-30] MEDS: clonazePAM 0.5 MG TABLET PO ×3 (09:17→21:35)
[2022-12-30 09:45] VITALS: BP 123/75; PULSE 91; RESP 16; TEMP 36.2; O2SAT 99
[2022-12-30] MEDS: Gabapentin 100 MG CAPSULE 200 MG PO ×2 (09:59→18:20)
[2022-12-30] MEDS: hydrOXYzine HCL 25 MG TABLET PO (09:59)
[2022-12-30] MEDS: cloNIDine HCL 0.2 MG TABLET PO ×3 (09:59→18:19)
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
[2022-12-30] MEDS: hydrOXYzine HCL 50 MG TABLET PO ×2 (14:47→21:35)
[2022-12-30] MEDS: Propranolol HCL 10 MG TABLET PO (14:47)
[2022-12-30 14:49] VITALS: BP 110/72; PULSE 91
[2022-12-30 18:18] VITALS: BP 120/72; PULSE 84; RESP 18
[2022-12-30] MEDS: Mirtazapine 30 MG TABLET PO (21:35)
[2022-12-30] MEDS: traZODone HCL 50 MG TABLET PO (21:35)
[2022-12-30] MEDS: cloNIDine HCL 0.1 MG TABLET PO (21:36)
[2022-12-30] MEDS: clomiPRAMINE HCl 25 MG CAPSULE PO (21:36)
[2022-12-31 09:15] VITALS: BP 142/82; PULSE 76; RESP 18; TEMP 36.2; O2SAT 98
[2022-12-31] MEDS: Propranolol HCL LA 60 MG CAP.SA.24H 120 MG PO (09:23)
[2022-12-31] MEDS: Escitalopram Oxalate 20 MG TABLET PO (09:24)
[2022-12-31] MEDS: Nicotine 21 MG PATCH.TD24 TRANSDERMA (09:24)
[2022-12-31] MEDS: clonazePAM 0.5 MG TABLET PO ×3 (09:24→20:48)
[2022-12-31] MEDS: carBAMazepine ER 200 MG TAB.ER.12H PO ×2 (09:24→20:47)
[2022-12-31] MEDS: Gabapentin 400 MG CAPSULE PO ×2 (09:24→14:14)
[2022-12-31] MEDS: Nicotine Polacrilex 2 MG GUM 4 MG BUCCAL ×5 (09:25→19:38)
[2022-12-31] MEDS: Miconazole Nitrate 2% Oint 57 GM OINT...G. 1 APPL TOPICAL (09:25)
[2022-12-31] MEDS: hydrOXYzine HCL 50 MG TABLET PO ×2 (09:50→17:53)
[2022-12-31] MEDS: Propranolol HCL 10 MG TABLET PO ×3 (09:50→19:38)
[2022-12-31] MEDS: cloNIDine HCL 0.2 MG TABLET PO ×3 (09:50→19:38)
[2022-12-31] MEDS: Gabapentin 100 MG CAPSULE 200 MG PO ×2 (12:56→19:37)
[2022-12-31 17:19] VITALS: BP 117/63; PULSE 77; RESP 14; TEMP 36.7; O2SAT 98
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
[2022-12-31] MEDS: Gabapentin 300 MG CAPSULE 600 MG PO (20:40)
[2022-12-31] MEDS: traZODone HCL 50 MG TABLET PO (20:48)
[2022-12-31] MEDS: Mirtazapine 15 MG TABLET 45 MG PO (20:48)
[2022-12-31] MEDS: clomiPRAMINE HCl 25 MG CAPSULE PO (20:48)
[2022-12-31] MEDS: cloNIDine HCL 0.1 MG TABLET PO (23:04)
[2023-01-01 08:15] VITALS: BP 129/83; PULSE 85; RESP 18; TEMP 36; O2SAT 98
[2023-01-01] MEDS: Nicotine 21 MG PATCH.TD24 TRANSDERMA (08:54)
[2023-01-01] MEDS: Nicotine Polacrilex 2 MG GUM 4 MG BUCCAL (08:55)
[2023-01-01] MEDS: carBAMazepine ER 200 MG TAB.ER.12H PO (08:56)
[2023-01-01] MEDS: Escitalopram Oxalate 20 MG TABLET PO (08:56)
[2023-01-01] MEDS: Propranolol HCL LA 60 MG CAP.SA.24H 120 MG PO (08:56)
[2023-01-01] MEDS: hydrOXYzine HCL 50 MG TABLET PO (08:56)
[2023-01-01] MEDS: clonazePAM 0.5 MG TABLET PO (08:56)
[2023-01-01] MEDS: cloNIDine HCL 0.2 MG TABLET PO (08:57)
[2023-01-01] MEDS: Gabapentin 300 MG CAPSULE 600 MG PO (08:57)
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
== END 2023-01-01 13:35 | DRG 751 ==
PROVIDERS: Clinical Nurse Specialist Psychiatric/Mental Health, Adult; Admitting Provider Psychiatry & Neurology Psychiatry; Visit Provider Psychiatry & Neurology Psychiatry
DX: F33.2 Major depressive disorder, recurrent severe without psychotic features (principal); R45.851 Suicidal ideations; F17.210 Nicotine dependence, cigarettes, uncomplicated; F45.8 Other somatoform disorders; F41.1 Generalized anxiety disorder; H92.01 Otalgia, right ear; F43.10 Post-traumatic stress disorder, unspecified; Z71.6 Tobacco abuse counseling; F42.9 Obsessive-compulsive disorder, unspecified; Z79.899 Other long term (current) drug therapy
CPT/HCPCS: 36415; 70450; 80053; 80061; 80156; 82607; 82746; 83036; 83735; 84439; 84443; 86617; 86618

== ENCOUNTER → 2022-11-28 13:38 | Outpatient (BNV) | payer OTHER, SELFPAY | PROVIDERS: Admitting Provider Psychiatry & Neurology Psychiatry; Visit Provider Psychiatry & Neurology Psychiatry | DX: F33.2 Major depressive disorder, recurrent severe without psychotic features (principal); F43.11 Post-traumatic stress disorder, acute; F41.1 Generalized anxiety disorder; F42.9 Obsessive-compulsive disorder, unspecified; F45.1 Undifferentiated somatoform disorder; F63.81 Intermittent explosive disorder | CPT/HCPCS: 90792; 99231; 99232; 99238; 99499 ==